=== PATIENT | female | born 1945 | race Caucasian/White ===

== ENCOUNTER 2020-10-08 12:56 | Outpatient (REF) | payer MEDICARE, SELFPAY ==
[2020-10-08 14:43] LABS: C Reactive Protein 0.06 mg/dL (< or = 0.50); Erythrocyte Sedimentation Rate 40 MM/HR (0-20)
== END 2020-10-08 12:57 | disposition home or self-care (01) ==
LOC: HO.LAB 12:56
PROVIDERS: PCP Internal Medicine; Visit Provider Ophthalmology
DX: M31.6 Other giant cell arteritis (principal)
CPT/HCPCS: 36415; 85652; 86140

== ENCOUNTER 2021-01-20 09:41 | Day surgery (SDC) | payer MEDICARE, SELFPAY ==
[2020-12-18 14:27] VITALS: BMI 22.6
[2021-01-20 12:27] VITALS: BP 165/67; PULSE 85; RESP 20; TEMP 37; O2SAT 100
[2021-01-20] MEDS: Tetracaine HCl/PF 0.5% Oph Sol 4 ML DROPS 1 DROP EYE-LEFT (12:35)
[2021-01-20] MEDS: Tropicamide 1 % Ophth Sol 3 ML BTL 1 DROP EYE-LEFT ×3 (12:38→12:46)
[2021-01-20] MEDS: Phenylephrine HCL 2.5% Oph SoL 2 ML BOTTLE 1 DROP EYE-LEFT ×3 (12:41→12:50)
[2021-01-20] MEDS: Lactated Ringers 500 ML 50 ML IVCONT (12:43)
--- NOTE | 2021-01-20 13:00 | HO.ANESPROP2 ---
HPI - Anesthesia Eval Consult details Narrative: Right eye cataract [facility] Past Medical History Medical History Arrhythmia Arthritis COPD (chronic obstructive pulmonary disease) COVID-19 vaccine administered Depression GERD (gastroesophageal reflux disease) HTN (hypertension) Oxygen dependent Family History Family history of problems with anesthesia: No Surgical History Surgical History H/O colonoscopy Hx of appendectomy History of Problems with Anesthesia: No Social History Social History Are you a primary memory care program director to a significant other at home: No Do you presently have visiting nurse or other home services: No Patient Tobacco Use Status: Former Tobacco user Quit Date: 2012 Tobacco use type: Cigarette Use of substances other than those prescribed or required for medical reasons: No Have you been hit, kicked, punched, or otherwise hurt by someone within the past year? If so, by whom?: No Are you DNR?: No Advance Directives Information Provided: No Recently lost weight without trying: Yes How much weight loss: 2-13 pounds Eating poorly because of decreased appetite: No Nutrition screen score: 3 Nutrition Risks: Surgical patient >75years Patient : No : No Poor oral hygiene: No (upper & lower full denture) Meds Allergies Allergy/AdvReac Type Severity Reaction Status Date / Time pantoprazole Allergy Intermediate mouth le Verified 01/20/21 12:42 Penicillins Allergy Intermediate Itching Verified 01/20/21 12:42 Active Medications: Current Medications Generic Name Dose Route Start Last Admin Trade Name Freq PRN Reason Stop Dose Admin Lactated Ringer's 500 mls @ 50 mls/hr 01/20/21 07:45 01/20/21 12:43 Lr IVCONT 50 mls/hr .Q10H [place] Administration Povidone Iodine 1 appl 01/20/21 12:02 Povidone Iodine 5 % Ophth Soln 30 Ml Bottle EYE-LEFT PREOP PRN Pre-Op Surgical Implant Prophy Home Medications Medication Instructions Recorded Confirmed Last Taken Type albuterol sulfate 1 vial INHALATION Q6H PRN 12/18/20 12/18/20 Unknown History atorvastatin 10 mg tablet 1 tab PO DAILY 12/18/20 12/18/20 Unknown History dabigatran etexilate 150 mg 1 cap PO BID 12/18/20 12/18/20 Unknown History capsule (Pradaxa) diltiazem HCl 240 mg 1 cap PO DAILY 12/18/20 12/18/20 Unknown History capsule,extended release 24 hr famotidine 20 mg tablet 2 tab PO BID 12/18/20 12/18/20 Unknown History fluticasone fur. 100 mcg-umeclid 1 puff PO DAILY 12/18/20 12/18/20 Unknown History 62.5 mcg-vilant 25 mcg inhalat.powder (Trelegy Ellipta) ipratropium 20 mcg-albuterol 100 1 puff PO QID 12/18/20 12/18/20 Unknown History mcg/actuation mist for inhalation (Combivent Respimat) lisinopril 30 mg tablet 1 tab PO DAILY 12/18/20 12/18/20 Unknown History metoprolol tartrate 25 mg tablet 1 tab PO BID 12/18/20 12/18/20 Unknown History potassium chloride 20 mEq oral 1 packet PO DAILY 12/18/20 12/18/20 Unknown History packet (Klor-Con) roflumilast 500 mcg tablet 1 tab PO DAILY 12/18/20 12/18/20 Unknown History (Darlene) Exam Exam Date and Time: January 20, 2021 1300 Height,Weight and Vital Signs: Height 5 ft Weight 52.617 kg Last Vital Signs Temp 98.6 F 01/20/21 12:27 Pulse 85 01/20/21 12:27 Resp 20 01/20/21 12:27 BP 165/67 H 01/20/21 12:27 Pulse Ox 100 01/20/21 12:27 Airway Mallampati Class: II TM Dist: >3cm Neck ROM: Full Denture: Upper and Lower Loose/Missing/Broken Teeth: Yes Heart: rrr +s1s2 Lungs: cta b/l Assessment and Plan Assessment Anesthesia Assessment: Anesthesia Plan Discussed and Chart Reviewed Final Anesthetic Review Family History of Problems with Anesthesia: No History of Problems with Anesthesia: No NPO: Yes ASA Class: III Final Preanesthetic Review: No Changes in Pt Med Stat, Meds/Allgs Chart Reviewed, Consent Obtained/Reviewed and Anes Risks/Benef Reviewed Patient Risk: Intermediate Procedure Risk: Low Assessment/Block/Sedation in SS: Assess/Block/Sedation-SS Anesthetic Plan Anesthetic Plan: MAC: and Agree w/ Assess. and Plan Disposition: Standard PACU
--- NOTE | 2021-01-20 13:56 | HO.PNOPHT ---
Ophthalmology Procedure Procedure Date of Service: 01/20/21 Ophthalmology Viscoelastic: Elina Pryort Dual Pack Pro Ophthalmology Lenses: TECMADYSON [id number] (23) Procedure Notes: PREOPERATIVE DIAGNOSIS: Decreased visual acuity right eye secondary to cataract POSTOPERATIVE DIAGNOSIS: Same PROCEDURE: Right cataract extraction with intraocular lens insertion SURGEON: Lasha Gillette M.D. ANESTHESIA: Topical/MAC ESTIMATED BLOOD LOSS: None COMPLICATIONS: None After obtaining informed consent, the patient was brought to the operating room suite and placed in the supine position. After adequate sedation per anesthesia, topical drops of Tetracaine were given to the right eye. The eye was then prepped and draped in the usual sterile fashion. The operating room microscope was then positioned over the operative eye and a lid speculum placed. A paracentesis was created. Viscoelastic was then instilled into the anterior chamber. A three plane incision was then created temporally, utilizing a 2.85 mm keratome. Capsulotomy forceps were then utilized to create a circular tear capsulotomy. Hydrodissection and hydrodelineation were carried out until adequate mobilization of the nucleus occurred. Phacoemulsification was then utilized to remove the dense central nucleus followed by removal of the cortical material utilizing the automated aspiration irrigation unit. Viscoelastic was instilled into the posterior capsular bag followed by placement of a posterior chamber intraocular lens without difficulty. The residual Viscoelastic was then removed utilizing the automated IA machine. The wound was checked and found to be watertight. The patient tolerated the procedure well and the lid speculum was removed. Intracameral injection of Vigamox 0.1 mL followed by a subtenon injection of Kenalog-40 0.2 mL were administered. The patient will be seen in the a.m.
[2021-01-20 14:28] VITALS: BP 129/70; PULSE 89; RESP 16; TEMP 36.3; O2SAT 96
[2021-01-20] MEDS: Acetaminophen 325 MG TABLET 650 MG PO (14:36)
== END 2021-01-20 14:44 | disposition home or self-care (01) ==
PROVIDERS: PCP Internal Medicine; Visit Provider Ophthalmology
PROC: (CPT 66985; principal; 2021-01-20 12:30)
DX: H25.11 Age-related nuclear cataract, right eye (principal); H52.4 Presbyopia; J44.9 Chronic obstructive pulmonary disease, unspecified; I10 Essential (primary) hypertension; I48.0 Paroxysmal atrial fibrillation; Z79.01 Long term (current) use of anticoagulants; Z79.51 Long term (current) use of inhaled steroids; Z87.891 Personal history of nicotine dependence
CPT/HCPCS: 66984; J2250; J3300; V2632

== ENCOUNTER 2022-08-28 09:27 | Outpatient (REF) | payer MEDICARE, SELFPAY ==
[2022-08-28 11:17] LABS: MANUAL DIFF FLAG NO
[2022-08-28 11:29] LABS: Basophils Absolute Auto 0.1 X10*3/uL (0.0-0.2); Basophils Percent Auto 1.1 % (0-2); Eosinophils Absolute Auto 0.5 X10*3/uL (0.0-0.4); Eosinophils Percent Auto 6.5 % (0-4); Hematocrit 30.5 % (37.0-47.0); Hemoglobin 9.2 g/dl (12.0-16.0); Imm Gran Abs Auto 0.02 X10*3/uL (0.00-0.03); Imm Gran Pct Auto 0.3 % (0.0-0.4); Lymphocytes Absolute Auto 1.4 X10*3/uL (1.2-4.9); Lymphocytes Percent Auto 20.1 % (20-40); Mean Corpuscular HGB Conc 30.2 g/dl (31.0-35.0); Mean Platelet Volume 9.2 fL (9.4-12.3); Monocytes Absolute Auto 0.5 X10*3/uL (0.1-1.2); Monocytes Percent Auto 7.6 % (2-11); Neutrophils Absolute Auto 4.6 x10*3/uL (2.0-8.3); Neutrophils Percent Auto 64.4 % (45-73); Platelet Count 385 X10*3/uL (160-400); Red Blood Count 3.28 X10*6/uL (4.20-5.50); Red Cell Distribution Width 14.6 % (11.0-16.0); White Blood Count 7.1 X10*3/uL (4.8-10.8)
[2022-08-28 12:44] LABS: Alanine Aminotransferase 9 U/L (0-31); Albumin Level 3.7 g/dL (3.5-5.0); Alkaline Phosphatase 105 U/L (39-117); Anion Gap 13 (12-20); Aspartate Amino Transferase 15 U/L (5-31); Bilirubin Total 0.3 mg/dL (0.0-1.0); Blood Urea Nitrogen 14 mg/dL (9-16); Calcium 9.6 mg/dL (8.4-10.2); Carbon Dioxide 30 mmol/L (22-29); Chloride 104 mmol/L (96-108); Estimated Glomerular Filt Rate > 60; Glucose Random 97 mg/dL (60-115); Potassium 4.1 mmol/L (3.3-5.1); Sodium 143 mmol/L (135-145); Total Protein 6.2 g/dL (6.5-8.0)
== END 2022-08-28 09:28 | disposition home or self-care (01) ==
LOC: HO.WFDLDS 09:27
PROVIDERS: Visit Provider Family Medicine
DX: Z00.00 Encounter for general adult medical examination without abnormal findings (principal); D64.9 Anemia, unspecified; N17.9 Acute kidney failure, unspecified
CPT/HCPCS: 36415; 80053; 85025

== ENCOUNTER 2022-09-28 10:24 | Outpatient (REF) | payer MEDICARE, SELFPAY ==
[2022-09-28 14:08] LABS: MANUAL DIFF FLAG NO
[2022-09-28 14:30] LABS: Basophils Absolute Auto 0.1 X10*3/uL (0.0-0.2); Basophils Percent Auto 1.4 % (0-2); Eosinophils Absolute Auto 0.5 X10*3/uL (0.0-0.4); Eosinophils Percent Auto 7.5 % (0-4); Hematocrit 32.6 % (37.0-47.0); Hemoglobin 9.7 g/dl (12.0-16.0); Imm Gran Abs Auto 0.02 X10*3/uL (0.00-0.03); Imm Gran Pct Auto 0.3 % (0.0-0.4); Lymphocytes Absolute Auto 1.1 X10*3/uL (1.2-4.9); Lymphocytes Percent Auto 15.4 % (20-40); Mean Corpuscular HGB Conc 29.8 g/dl (31.0-35.0); Mean Corpuscular Hemoglobin 27.7 pg (27.0-33.0); Mean Corpuscular Volume 93.1 fL (80.0-98.0); Mean Platelet Volume 9.7 fL (9.4-12.3); Monocytes Absolute Auto 0.5 X10*3/uL (0.1-1.2); Monocytes Percent Auto 6.7 % (2-11); Neutrophils Absolute Auto 4.9 x10*3/uL (2.0-8.3); Neutrophils Percent Auto 68.7 % (45-73); Platelet Count 350 X10*3/uL (160-400); Red Cell Distribution Width 14.5 % (11.0-16.0); White Blood Count 7.2 X10*3/uL (4.8-10.8)
[2022-09-28 14:33] LABS: Iron 25 mcg/dL (30-160); Percent Iron Saturation 6 % (15-50); Total Iron Binding Capacity 400 mcg/dL (228-428); Unsaturated Iron Binding 375 ug/dL
== END 2022-09-28 10:25 | disposition home or self-care (01) ==
LOC: HO.WFDLDS 10:24
PROVIDERS: Visit Provider Family Medicine
DX: Z00.00 Encounter for general adult medical examination without abnormal findings (principal); D64.9 Anemia, unspecified
CPT/HCPCS: 36415; 83540; 85025

== ENCOUNTER 2022-11-23 10:06 | Outpatient (REF) | payer MEDICARE, SELFPAY ==
[2022-11-23 11:08] LABS: MANUAL DIFF FLAG NO
[2022-11-23 11:18] LABS: Basophils Absolute Auto 0.1 X10*3/uL (0.0-0.2); Basophils Percent Auto 1.2 % (0-2); Eosinophils Absolute Auto 0.3 X10*3/uL (0.0-0.4); Eosinophils Percent Auto 4.3 % (0-4); Hematocrit 35.9 % (37.0-47.0); Hemoglobin 10.7 g/dl (12.0-16.0); Imm Gran Abs Auto 0.01 X10*3/uL (0.00-0.03); Imm Gran Pct Auto 0.2 % (0.0-0.4); Lymphocytes Absolute Auto 1.2 X10*3/uL (1.2-4.9); Lymphocytes Percent Auto 20.6 % (20-40); Mean Corpuscular HGB Conc 29.8 g/dl (31.0-35.0); Mean Corpuscular Hemoglobin 28.4 pg (27.0-33.0); Mean Corpuscular Volume 95.2 fL (80.0-98.0); Mean Platelet Volume 9.6 fL (9.4-12.3); Monocytes Absolute Auto 0.3 X10*3/uL (0.1-1.2); Monocytes Percent Auto 5.7 % (2-11); Neutrophils Absolute Auto 4.1 x10*3/uL (2.0-8.3); Platelet Count 219 X10*3/uL (160-400); Red Blood Count 3.77 X10*6/uL (4.20-5.50); Red Cell Distribution Width 16.5 % (11.0-16.0)
[2022-11-23 11:50] LABS: Alanine Aminotransferase 13 U/L (0-31); Albumin Level 4.1 g/dL (3.5-5.0); Alkaline Phosphatase 102 U/L (39-117); Anion Gap 13 (12-20); Aspartate Amino Transferase 18 U/L (5-31); Bilirubin Total 0.3 mg/dL (0.0-1.0); Blood Urea Nitrogen 21 mg/dL (9-16); Calcium 10.1 mg/dL (8.4-10.2); Carbon Dioxide 33 mmol/L (22-29); Chloride 101 mmol/L (96-108); Cholesterol 160 mg/dL; Estimated Glomerular Filt Rate > 60; Glucose Fasting 95 mg/dL (60-99); HDL Cholesterol 53 mg/dL; LDL Cholesterol Calculated 84 mg/dl; Sodium 143 mmol/L (135-145); Total Protein 6.9 g/dL (6.5-8.0); Triglycerides 119 mg/dL
== END 2022-11-23 10:07 | disposition home or self-care (01) ==
LOC: HO.WFDLDS 10:06
PROVIDERS: Visit Provider Family Medicine
DX: Z00.00 Encounter for general adult medical examination without abnormal findings (principal)
CPT/HCPCS: 36415; 80053; 80061; 84443; 85025

== ENCOUNTER 2022-12-21 13:29 | Outpatient (AMB) | payer MEDICARE, SELFPAY ==
[2022-12-21 13:36] VITALS: BP 112/70; PULSE 65; O2SAT 96; BMI 18.0
--- NOTE | 2022-12-21 13:36 | A.OFFPC_ITS ---
Vital Signs 12/21/22 13:36 Height 5 ft Weight 92 lb BMI 18.0 BP 112/70 Blood Pressure Location Lt brachial Position Sitting Pulse 65 Pulse Source Pulse Oximeter Pulse Oximetry (%) 96 Oxygen Delivery Method Room Air Intake Visit Reasons: f/u iron deficiency anemia S/P GI bleeding, mood Intake Note: Patient is here to follow up on iron deficiency, and GI bleeding, and mood. Allergies pantoprazole Allergy (Intermediate, Verified 12/21/22 13:41) mouth le Penicillins Allergy (Intermediate, Verified 12/21/22 13:41) Itching Medication List - Last Reconciled 12/21/22 by Elpidio Alba MD albuterol sulfate 1 vial inhalation Q6H PRN atorvastatin 1 tab PO DAILY citalopram 10 mg PO DAILY 30 days dabigatran etexilate (Pradaxa) 1 cap PO BID diltiazem HCl 1 cap PO DAILY ferrous gluconate 256 mg PO DAILY 30 days ogywcmdavrx-mvupzbffu-eomitezn 100-62.5-25 mcg (Trelegy Ellipta) 1 puff PO DAILY food supplemt, lactose-reduced (Ensure oral liquid) 1 ea PO DAILY 30 days ipratropium-albuterol 20-100 mcg/actuation (Combivent Respimat) 1 puff PO QID lansoprazole 30 mg PO DAILY 90 days loratadine (Allergy Relief (loratadine)) 10 mg PO DAILY metoprolol tartrate 1 tab PO BID potassium chloride (Klor-Con) 1 packet PO DAILY potassium chloride ER 20 mEq PO DAILY 90 days prednisone 40 mg PO DAILY roflumilast (Daliresp) 1 tab PO DAILY Tobacco use date assessed: 12/21/22 Fall risk assessment: 1 Fall in past year Last assessed Fall Risk: 12/21/22 Dental Screening Dental Screen Date: 12/21/22 Did you have a dental visit in the last 12 months?: No Did you have a dental problem in the last 6 months where you did not have access to dental care?: No Was dental information given to patient?: No HPI f/u iron deficiency anemia S/P GI bleeding, mood HPI Details 77 y/o female presents to f/u iron deficiency anemia s/p GI bleeding and mood. Pt is underweight - she had gained a few lbs. Insurance did not want to pay for her ensure. Labs were drawn 11/23/22. Reviewed labs with pt. Ongoing anemia. She reports constipation has improved. She reports mood has improved with medications - she is on citalopram 10mg. Pt has complaints of a cough. FOR[facility]LY [facility], [facility] Medical History Arrhythmia Arthritis COPD (chronic obstructive pulmonary disease) COVID-19 vaccine administered Depression GERD (gastroesophageal reflux disease) HTN (hypertension) Oxygen dependent Surgical History H/O colonoscopy Hx of appendectomy Social History Housing: House Are you a primary healthcare customer service to a significant other at home: No Do you presently have visiting nurse or other home services: No Patient Tobacco Use Status: Former Tobacco user Quit Date: 2012 Tobacco use type: Cigarette e-Cigarette/Vaping Use: Never Used Second Hand Smoke Exposure: No Current occupational status: retired Current occupational exposures/hazards: No Hearing needs: No Questionnaire PHQ-9 Over the last 2 weeks, how often have you been bothered by any of the following problems? 1. Little interest or pleasure in doing things: nearly every day 2. Feeling down, depressed, or hopeless: several days 3. Trouble falling or staying asleep, or sleeping too much: not at all 4. Feeling tired or having little energy: nearly every day 5. Poor appetite or overeating: not at all 6. Feeling bad about yourself - or that you are a failure or have let yourself or your family down: nearly every day 7. Trouble concentrating on things, such as reading the newspaper or watching television: not at all 8. Moving or speaking so slowly that other people could have noticed. Or the opposite - being so fidgety or restless that you have been moving around a lot more than usual: not at all 9. Thoughts that you would be better off or of hurting yourself in some way: not at all Total score: 10 Source: Developed by Drs. Kyle Urena, Holli Avalos, Jules Monteiro and colleagues, with an educational bernadette from [employer]. Thrive Questionnaire Date Thrive assessed: 05/21/22 SASHA-7 AMB Questionnaire SASHA-7 Date SASHA - 7 assessed: 05/21/22 Feeling nervous, anxious, or on edge: 1 = Several days Not being able to stop or control worryin = Nearly every day Worrying too much about different things: 3 = Nearly every day Trouble relaxin = Several days Being so restless that it is hard to sit still: 0 = Not at all Becoming easily annoyed or irritable: 1 = Several days Feeling afraid as if something awful might happen: 3 = Nearly every day Total SASHA-7 score (0-4 normal; 5-9 mild; 10-14 moderate; 15-21 severe): 12 Source: Developed by Drs. Kyle Urena, Holli Avalos, Jules Monteiro and colleagues, with an educational bernadette from [employer]. Review of Systems Const Denies chills, Denies fatigue, Denies fever(s), Denies headache(s) and Denies weakness ENT Denies dizziness and Denies headache(s) Card Denies dyspnea Resp Reports cough, Denies dyspnea, Denies wheezing and Denies other (shortness of breath) Musc Denies numbness and Denies tingling Neuro Denies dizziness, Denies headache(s), Denies numbness, Denies tingling and Denies weakness Psych Denies anxiety and Denies depression Endo Denies fatigue Aller/Immun Denies wheezing Physical exam (Primary Care) Vital Signs: Last Vital Signs Pulse 65 12/21/22 13:36 BP 112/70 12/21/22 13:36 Pulse Ox 96 12/21/22 13:36 Oxygen Delivery Method Room Air 12/21/22 13:36 BMI result Body Mass Index 18.0 Tobacco/Smoking Status: Tobacco use Status Tobacco use date assessed 12/21/22 12/21/22 13:49 Patient Tobacco Use Status Former Tobacco user 12/21/22 13:49 Tobacco use type Cigarette 12/21/22 13:49 e-Cigarette/Vaping Use Never Used 12/21/22 13:49 PHQ-9: PHQ-9 Score PHQ-9: Total score 10 12/21/22 13:58 Thrive Assessment: Date of Thrive Assessment Date Thrive assessed 05/21/22 12/21/22 13:49 Const General: well developed; No acute distress Nutritional Appearance: underweight Orientation/consciousness: patient oriented x3 [facility] Head: Yes normocephalic and Yes atraumatic Eyes General: appearance normal, both eyes and all related structures Pupils: Equal, round and reactive pupils present EOM: EOMs intact bilaterally Resp Effort & Inspection: normal respiratory effort Auscultation: clear to auscultation bilaterally Cardio Rate: regular rate Rhythm: regular rhythm Heart sounds: S1 normal heart sound present, S2 normal heart sound present, no gallops, no murmurs and no rubs Neuro General: patient oriented x3 and gait normal Cranial nerves: Yes Equal, round and reactive pupils present Psych Affect: normal affect Assessment and Plan Assessment & Plan (1) Underweight: Code(s): R63.6 - Underweight Plan: Underweight and failure to thrive. Patient has had difficulty gaining any weight and this is multifactorial and cause. However, with addition of insure she was able to gain about 3 lb. She was told by insurance that they will not cover ensure. Will try resubmiting this. May need prior authorization or peer to peer (2) Anemia: Code(s): D64.9 - Anemia, unspecified Plan: Taking iron daily now and tolerating this Continue iron Will follow-up on her CBC at her next lab draw (3) Anxiety with depression: Code(s): F41.8 - Other specified anxiety disorders Plan: Stable Continue citalopram 10 mg daily (4) Constipation: Code(s): K59.00 - Constipation, unspecified Plan: Currently doing well. Hydrate well (5) COPD exacerbation: Code(s): J44.1 - Chronic obstructive pulmonary disease with (acute) exacerbation Plan: Current cough and chest congestion No consolidations heard on auscultation Likely COPD exacerbation. However, she does note some chills. Will give her a Z-Kam and prednisone taper Continue inhaled medications Follow-up with Dr. Ayon as recommended (6) History of GI bleed: Code(s): Z87.19 - Personal history of other diseases of the digestive system Orders: Orders Comprehensive [place]. Panel Fast Today Z00.00 - Encounter for general adult medical examination without abnormal findings Complete Blood Count Auto Diff Today Z00.00 - Encounter for general adult medical examination without abnormal findings Lipid Panel Today Z00.00 - Encounter for general adult medical examination without abnormal findings UA and rflx microscopic Today Z00.00 - Encounter for general adult medical examination without abnormal findings TSH reflex Free T4 Today Z00.00 - Encounter for general adult medical examination without abnormal findings Referrals Gastroenterology Referral K92.2 - Gastrointestinal hemorrhage, unspecified, R62.7 - Adult failure to thrive, R63.6 - Underweight Medications: New azithromycin (Zithromax Z-Kam) take 500 mg today (day 1), then 250 mg for 4 days (days 2-5) PO 5 days 6 tabs 0RF prednisone 4 tabs daily for 4 days, 3 tabs daily for 2 days, 2 tabs daily for 2 days, 1 tab daily for 2 days PO daily; 10 days 28 tabs 0RF Refilled food supplemt, lactose-reduced (Ensure oral liquid) 1 ea PO DAILY 30 days 7,110 mL 3RF R62.7 - Adult failure to thrive, R63.6 - Underweight Coding Level of Care Code Est Pt Level 4 (79434) Diagnoses Underweight R63.6 Anemia D64.9 Anxiety with depression F41.8 Constipation K59.00 COPD exacerbation J44.1 History of GI bleed Z87.19
== END 2022-12-21 14:25 | disposition home or self-care (01) ==
PROVIDERS: PCP Family Medicine; Visit Provider Family Medicine
DX: R63.6 Underweight (principal); F41.8 Other specified anxiety disorders; J44.1 Chronic obstructive pulmonary disease with (acute) exacerbation; Z87.19 Personal history of other diseases of the digestive system; D64.9 Anemia, unspecified; K59.00 Constipation, unspecified
CPT/HCPCS: 99214

== ENCOUNTER 2023-02-26 11:10 | Outpatient (REF) | payer MEDICARE, SELFPAY ==
[2023-02-26 14:27] LABS: MANUAL DIFF FLAG NO
[2023-02-26 14:39] LABS: Basophils Absolute Auto 0.1 X10*3/uL (0.0-0.2); Eosinophils Absolute Auto 0.2 X10*3/uL (0.0-0.4); Eosinophils Percent Auto 3.4 % (0-4); Hematocrit 37.3 % (37.0-47.0); Hemoglobin 11.9 g/dl (12.0-16.0); Imm Gran Abs Auto 0.02 X10*3/uL (0.00-0.03); Imm Gran Pct Auto 0.3 % (0.0-0.4); Lymphocytes Absolute Auto 0.9 X10*3/uL (1.2-4.9); Lymphocytes Percent Auto 12.5 % (20-40); Mean Corpuscular HGB Conc 31.9 g/dl (31.0-35.0); Mean Corpuscular Hemoglobin 31.7 pg (27.0-33.0); Mean Corpuscular Volume 99.5 fL (80.0-98.0); Mean Platelet Volume 10.4 fL (9.4-12.3); Monocytes Absolute Auto 0.4 X10*3/uL (0.1-1.2); Neutrophils Absolute Auto 5.4 x10*3/uL (2.0-8.3); Neutrophils Percent Auto 76.8 % (45-73); Platelet Count 213 X10*3/uL (160-400); Red Blood Count 3.75 X10*6/uL (4.20-5.50); Red Cell Distribution Width 12.1 % (11.0-16.0)
[2023-02-26 14:51] LABS: Appearance Urine Clear; Color Urine Yellow; Glucose Urine UA Negative (Negative); Leukocyte Esterase Urine Trace (Negative); Nitrite Urine Negative (Negative); UMIC TRIGGER UA YES; Urine Blood Trace (Negative); Urine Ketones Negative (Negative); Urine Protein 30 (1+) mg/dL (Neg-Trace)
[2023-02-26 15:15] LABS: TSH reflex Free T4 2.67 uIU/mL (0.32-4.0)
[2023-02-26 15:22] LABS: Alanine Aminotransferase 16 U/L (0-31); Albumin Level 4.1 g/dL (3.5-5.0); Alkaline Phosphatase 92 U/L (39-117); Anion Gap 16 (12-20); Aspartate Amino Transferase 29 U/L (5-31); Bilirubin Total 0.3 mg/dL (0.0-1.0); Blood Urea Nitrogen 12 mg/dL (9-16); Calcium 10.2 mg/dL (8.4-10.2); Carbon Dioxide 28 mmol/L (22-29); Chloride 102 mmol/L (96-108); Cholesterol 158 mg/dL (<200); Estimated Glomerular Filt Rate > 60; Glucose Fasting 92 mg/dL (60-99); HDL Cholesterol 57 mg/dL (>40); LDL Cholesterol Calculated 78 mg/dL (<100); Potassium 4.6 mmol/L (3.3-5.1); Sodium 141 mmol/L (135-145); Total Protein 7.5 g/dL (6.5-8.0); Triglycerides 115 mg/dL (<150)
[2023-02-26 15:22] LABS: Bacteria Urine None Seen (None Seen); Calcium Oxalate Crystals Urine Present; Hyaline Casts Urine 0-2 /LPF (0-2); Squamous Epithelial Cell Urine 0-2 /HPF (0-2)
[2023-02-26 15:33] LABS: Creatinine Urine 134.74 mg/dL; Microalbum/Creatinine Ratio Ur 35.6 ug/mg cr (<30)
== END 2023-02-26 11:11 | disposition home or self-care (01) ==
LOC: HO.WFDLDS 11:10
PROVIDERS: Visit Provider Family Medicine
DX: Z00.00 Encounter for general adult medical examination without abnormal findings (principal); I10 Essential (primary) hypertension
CPT/HCPCS: 36415; 80053; 80061; 81001; 82043; 82570; 84443; 85025

== ENCOUNTER 2023-03-03 10:58 | Outpatient (AMB) | payer MEDICARE, SELFPAY ==
--- NOTE | 2023-03-03 11:04 | A.OFFPC_ITS ---
Vital Signs 03/03/23 11:08 Height 5 ft Weight 91 lb 8 oz BMI 17.9 BP 132/60 Blood Pressure Location Lt brachial Position Sitting Respiration 14 Pulse 73 Pulse Source Pulse Oximeter Temp 97.7 F Temp Source Skin Pulse Oximetry (%) 94 Oxygen Delivery Method Nasal Cannula Intake Visit Reasons: CPE with f/u labs and health maintenance Intake Note: Patient is here to follow up on her labs. Patient received a letter in the mail and was informed that [facility] and associated specialists will no longer be accepting her insurance plan. Patient will need a referral for a new Gastroenterology provider. Pulp Piler Required: No Accompanied by: Self / Same As Patient Allergies pantoprazole Allergy (Intermediate, Verified 03/03/23 11:16) mouth le Penicillins Allergy (Intermediate, Verified 03/03/23 11:16) Itching Tobacco use date assessed: 12/21/22 HPI CPE with f/u labs and health maintenance HPI Details 78 y/o female presents for a CPE with f/ u labs and health maintenance. Labs were drawn 02/26/23. Reviewed labs with pt. Ongoing anemia. Triglycerides 115. TC 158. LDL 78. HDL 57. She reports she has stopped getting mammograms a long time ago. Pt reports bone density test was more than 2 years ago. FORMERLY [facility] Medical History Arrhythmia Arthritis COPD (chronic obstructive pulmonary disease) COVID-19 vaccine administered Depression GERD (gastroesophageal reflux disease) HTN (hypertension) Oxygen dependent Surgical History H/O colonoscopy Hx of appendectomy Social History Housing: House Are you a primary director long term care to a significant other at home: No Do you presently have visiting nurse or other home services: No Patient Tobacco Use Status: Former Tobacco user Quit Date: 2012 Tobacco use type: Cigarette e-Cigarette/Vaping Use: Never Used Second Hand Smoke Exposure: No Current occupational status: retired Current occupational exposures/hazards: No Hearing needs: No Questionnaire Thrive Questionnaire Date Thrive assessed: 05/21/22 SASHA-7 AMB Questionnaire SASHA-7 Date SASHA - 7 assessed: 05/21/22 Source: Developed by Holli HoffW. Robbie, Jules Monteiro and colleagues, with an educational bernadette from [employer]. Review of Systems Const Denies chills, Denies fatigue, Denies fever(s), Denies headache(s) and Denies weakness Eyes Denies change in vision ENT Denies dizziness, Denies headache(s), Denies hearing loss, Denies nasal congestion, Denies sinus pain, Denies sinus pressure and Denies sore throat Card Denies chest pain, Denies lightheadedness, Denies dyspnea and Denies other (palpitations) Resp Denies cough, Denies dyspnea and Denies wheezing GI Denies abdominal pain, Denies melena, Denies hematochezia, Denies change in bowel habits, Denies dyspepsia and Denies nausea Denies hematuria and Denies dysuria Musc Denies abnormal gait, Denies myalgias, Denies arthralgias, Denies numbness and Denies tingling Skin/Breast Denies rash, Denies unusual bruising and Denies wounds Neuro Denies abnormal gait, Denies dizziness, Denies headache(s), Denies memory loss, Denies numbness, Denies Sensory deficit (Neuro), Denies tingling and Denies weakness Psych Reports anxiety, Denies depression and Denies memory loss Endo Denies cold intolerance, Denies fatigue, Denies heat intolerance, Denies polydipsia and Denies polyuria Devonte/Lymph Denies easy bleeding and Denies easy bruising Aller/Immun Denies wheezing Physical exam (Primary Care) Vital Signs: Last Vital Signs Temp 97.7 F 03/03/23 11:08 Pulse 73 03/03/23 11:08 Resp 14 03/03/23 11:08 BP 132/60 03/03/23 11:08 Pulse Ox 94 03/03/23 11:08 Oxygen Delivery Method Nasal Cannula 03/03/23 11:08 BMI result Body Mass Index 17.9 Tobacco/Smoking Status: Tobacco use Status Tobacco use date assessed 12/21/22 03/03/23 11:06 Patient Tobacco Use Status Former Tobacco user 03/03/23 11:06 Tobacco use type Cigarette 03/03/23 11:06 e-Cigarette/Vaping Use Never Used 03/03/23 11:06 Thrive Assessment: Date of Thrive Assessment Date Thrive assessed 05/21/22 03/03/23 11:06 Const General: no acute distress, well developed, alert and awake Nutritional Appearance: well nourished and underweight Orientation/consciousness: patient oriented x3 [facility] Head: Yes normocephalic and Yes atraumatic Ears: hearing grossly normal bilaterally and TM's normal bilaterally General nose exam: Normal external nose present and Normal nares present Mouth: Normal oral and palatal mucosa present and moist mucous membranes Teeth and gingiva: dentition normal Throat: Yes posterior oropharynx normal Eyes General: appearance normal, both eyes and all related structures Pupils: Equal, round and reactive pupils present and Pupil accommodation reflex normal EOM: EOMs intact bilaterally Neck Neck: Yes normal visual inspection, Yes no lymphadenopathy and Yes trachea midline Thyroid: Thyroid normal Carotids: no bruits Lymphatic: no lymphadenopathy noted Chest Chest palpation & inspection: normal inspection of the chest Resp Effort & Inspection: normal respiratory effort Auscultation: clear to auscultation bilaterally Cardio Rate: regular rate Rhythm: regular rhythm Heart sounds: S1 normal heart sound present, S2 normal heart sound present, no gallops, no murmurs and no rubs Bruits: no abdominal aortic bruits and no carotid bruits GI Palpation (GI): No Abdominal aortic bruit present, Soft to palpation, nontender, No hepatosplenomegaly present and No Rebound tenderness present Auscultation: normal bowel sounds General: Yes no CVA tenderness Back/Spine/Pelvis Back: no CVA tenderness Cervical Spine: cervical ROM normal and No Cervical spine tenderness Thoracic/Lumbar Spine: thoraco-lumbar ROM normal, No pain with thoraco-lumbar ROM, No thoracic spinal tenderness and No lumbar spinal tenderness Skin Lesions: no lesions Rashes: no rashes Trauma: no lacerations or abrasions Wounds: no wounds Nails: normal Neuro General: patient oriented x3 Cranial nerves: Yes Equal, round and reactive pupils present Cognition (Neuro): normal cognition Gait exam (Neuro): Normal gait present Motor exam (neuro): 5/5 motor strength present throughout Sensory Exam: No Sensory deficit (Neuro) Deep tendon reflexes (DTR's): Right patellar reflex intensity grade: 2+ and Left patellar reflex intensity grade: 2+ Extrem General: Yes normal to inspection and No edema Psych Appearance: grossly normal Affect: normal affect Attitude: cooperative Thought process: Normal thought process present Assessment and Plan Assessment & Plan (1) Adult general medical exam: Code(s): Z00.00 - Encounter for general adult medical examination without abnormal findings Plan: 78-year-old female presents for complete physical exam (2) HTN (hypertension): Code(s): I10 - Essential (primary) hypertension Plan: Blood pressure is controlled Continue current medications (3) Anemia: Code(s): D64.9 - Anemia, unspecified Plan: Almost completely resolved. We can continue to follow (4) Underweight: Code(s): R63.6 - Underweight Plan: We is fairly steady but significantly underweight still. Had prescribed an ensure dietary supplement and patient is having difficulty affording this Will send again. Can get prior authorization or a peer to peer discussion. (5) Microalbuminuria: Code(s): R80.9 - Proteinuria, unspecified Plan: Hydrate well Continue to manage blood pressure Will follow-up (6) Anxiety with depression: Code(s): F41.8 - Other specified anxiety disorders Plan: Significant anxiety she is on citalopram 10 mg daily and should continue this She can try hydroxyzine and will give her a small amount of lorazepam for severe symptoms p.r.n. Strongly advised she use sparingly and minimize fall risk (7) Screening for colon cancer: Code(s): Z12.11 - Encounter for screening for malignant neoplasm of colon Plan: Patient had a colonoscopy done last year with her GI bleed and was told she does not need any further colonoscopies. (8) Breast cancer screening by mammogram: Code(s): Z12.31 - Encounter for screening mammogram for malignant neoplasm of breast Plan: Declines mammogram (9) Osteoporosis: Code(s): M81.0 - Age-related osteoporosis without current pathological fracture Plan: Patient reports she has had prior abnormal testing in the past Overdue to recheck bone density. Patient is apprehensive about this. She will think about this further. I have ordered the test. Orders: Orders XR DEXA axial skeleton Today M81.0 - Age-related osteoporosis without current pathological fracture Medications: Refilled food supplemt, lactose-reduced (Ensure oral liquid) 1 ea PO DAILY 30 days 7,110 mL 3RF R62.7 - Adult failure to thrive, R63.6 - Underweight Coding Level of Care Code Est Pt Level 4 (84174) Est Pt Prev Care >65y(42005) Diagnoses Adult general medical exam Z00.00 HTN (hypertension) I10 Anemia D64.9 Underweight R63.6 Microalbuminuria R80.9 Anxiety with depression F41.8 Screening for colon cancer Z12.11 Breast cancer screening by mammogram Z12.31 Osteoporosis M81.0
[2023-03-03 11:08] VITALS: BP 132/60; PULSE 73; RESP 14; TEMP 36.5; O2SAT 94; BMI 17.9
== END 2023-03-03 12:32 | disposition home or self-care (01) ==
PROVIDERS: PCP Family Medicine; Visit Provider Family Medicine
DX: Z00.00 Encounter for general adult medical examination without abnormal findings (principal); I10 Essential (primary) hypertension; D64.9 Anemia, unspecified; R63.6 Underweight; R80.9 Proteinuria, unspecified; F41.8 Other specified anxiety disorders; M81.0 Age-related osteoporosis without current pathological fracture
CPT/HCPCS: 99397

== ENCOUNTER 2023-06-09 14:29 | Outpatient (AMB) | payer MEDICARE, SELFPAY ==
[2023-06-09 14:35] VITALS: BP 100/66; PULSE 66; O2SAT 95; BMI 17.0
--- NOTE | 2023-06-09 14:35 | MHC.PC.OV ---
Vital Signs 06/09/23 14:35 Height 5 ft Weight 87 lb 4 oz BMI 17.0 BP 100/66 Blood Pressure Location Lt brachial Pulse 66 Pulse Source Pulse Oximeter Pulse Oximetry (%) 95 Oxygen Delivery Method Nasal Cannula Oxygen Flow Rate 3 Intake Visit Reasons: CPE with f/u labs and health maintenance Intake Note: Patient is here today for her medication, and follow up with health maintenance. Allergies pantoprazole Allergy (Intermediate, Verified 06/09/23 14:42) mouth le Penicillins Allergy (Intermediate, Verified 06/09/23 14:42) Itching Tobacco use date assessed: 12/21/22 Fall risk assessment: No Falls in past year Last assessed Fall Risk: 06/09/23 HPI CPE with f/u labs and health maintenance HPI Details 78 y/o female presents to f/u chronic conditions. She had lost some weight - 91 lbs in February down to 87 lbs. Had seen pulmonology recently and had changed her back to Daliresp which she is tolerating well. Pt reports worsened anxiety. Pt reports a large, raised lesion on her back. Pt reports anxiety/depression. She does not have a therapist. HPI Comments History of Present Illness Details Documentation assistance for Elpidio Alba MD, was provided by Bebeto Starr,? Milling Operator on 06/09/2023 3:33 PM EST. I, Dr. Alba, have read, observed, and verified documentation.? [facility] Medical History COVID-19 vaccine administered Arthritis GERD (gastroesophageal reflux disease) Depression Oxygen dependent COPD (chronic obstructive pulmonary disease) Arrhythmia HTN (hypertension) Surgical History Hx of appendectomy H/O colonoscopy Social History Housing: House Are you a primary wound care coordinator to a significant other at home: No Do you presently have visiting nurse or other home services: No Patient Tobacco Use Status: Former Tobacco user Quit Date: 2012 Tobacco use type: Cigarette e-Cigarette/Vaping Use: Never Used Second Hand Smoke Exposure: No Current occupational status: retired Current occupational exposures/hazards: No Hearing needs: No Questionnaire PHQ-9 Over the last 2 weeks, how often have you been bothered by any of the following problems? 1. Little interest or pleasure in doing things: more than half the days 2. Feeling down, depressed, or hopeless: nearly every day 3. Trouble falling or staying asleep, or sleeping too much: several days 4. Feeling tired or having little energy: not at all 5. Poor appetite or overeating: several days 6. Feeling bad about yourself - or that you are a failure or have let yourself or your family down: not at all 7. Trouble concentrating on things, such as reading the newspaper or watching television: not at all 8. Moving or speaking so slowly that other people could have noticed. Or the opposite - being so fidgety or restless that you have been moving around a lot more than usual: not at all 9. Thoughts that you would be better off or of hurting yourself in some way: not at all Total score: 7 Depression Screening Interpretation: Positive Depression Screening Done: Yes Source: Developed by Drs. Kyle Urena, Holli Avalos, Jules Monteiro and colleagues, with an educational bernadette from [employer]. Thrive Questionnaire Date Thrive assessed: 05/21/22 SASHA-7 AMB Questionnaire SASHA-7 Date SASHA - 7 assessed: 06/09/23 Feeling nervous, anxious, or on edge: 3 = Nearly every day Not being able to stop or control worryin = Nearly every day Worrying too much about different things: 3 = Nearly every day Trouble relaxin = Nearly every day Being so restless that it is hard to sit still: 0 = Not at all Becoming easily annoyed or irritable: 0 = Not at all Feeling afraid as if something awful might happen: 3 = Nearly every day Total SASHA-7 score (0-4 normal; 5-9 mild; 10-14 moderate; 15-21 severe): 15 Source: Developed by Drs. Kyle Urena, Holli Avalos, Jules Monteiro and colleagues, with an educational bernadette from [employer]. Review of Systems Psych Reports anxiety and Reports depression Physical exam (Primary Care) Vital Signs: Last Vital Signs Pulse 66 06/09/23 14:35 BP 100/66 06/09/23 14:35 Pulse Ox 95 06/09/23 14:35 Oxygen Delivery Method Nasal Cannula 06/09/23 14:35 Oxygen Flow Rate 3 06/09/23 14:35 BMI result Body Mass Index 17.0 Tobacco/Smoking Status: Tobacco use Status Tobacco use date assessed 12/21/22 06/09/23 14:39 Patient Tobacco Use Status Former Tobacco user 06/09/23 14:39 Tobacco use type Cigarette 06/09/23 14:39 e-Cigarette/Vaping Use Never Used 06/09/23 14:39 PHQ-9: PHQ-9 Score PHQ-9: Total score 7 06/09/23 14:54 Depression Screening Interpretation: Positive Thrive Assessment: Date of Thrive Assessment Date Thrive assessed 05/21/22 06/09/23 14:39 Const Nutritional Appearance: underweight Skin Other: 2cm raised melanotic lesion with excoriations Assessment and Plan Assessment & Plan (1) Underweight: Code(s): R63.6 - Underweight Plan: Ongoing?failure?to?thrive?and?underweight.??Patient?has?lost?a?few?more?lb?again. She?says?she?has?not?been?able?to?afford?ensure Send?script?again?hoping?insurance?will?pay?and?I?have?given?her?numerous?samples. Referred?to?Gastroenterology (2) Failure to thrive in adult: Code(s): R62.7 - Adult failure to thrive Plan: As?above (3) COPD (chronic obstructive pulmonary disease): Code(s): J44.9 - Chronic obstructive pulmonary disease, unspecified Plan: Stable [facility]-up?with[facility] (4) Oxygen dependent: Comment: 2L Code(s): Z99.81 - Dependence on supplemental oxygen Plan: Stable (5) Abdominal pain: Code(s): R10.9 - Unspecified abdominal pain Plan: Mild?abdominal?discomfort As?above,?referred?to?GI (6) Neoplasm of uncertain behavior of skin: Code(s): D48.5 - Neoplasm of uncertain behavior of skin Plan: 2?cm raised/nodular?melanotic?lesion?with?excoriations Can?use?bacitracin?and?a?bandage?to?prevent?irritation/excoriation?and?infection. Referred?to?dermatology?for?removal (7) Anxiety with depression: Code(s): F41.8 - Other specified anxiety disorders Plan: Worsened?anxiety?and?depression.??Increasing?citalopram?from?10?mg?daily?to?20?mg?daily Referred?to?the?nurse?navigator?to?connect?her?with?a?therapist?and?also?to?evaluate?for?services Orders: Referrals Dermatology Referral D48.5 - Neoplasm of uncertain behavior of skin Nurse Navigator Referral F41.8 - Other specified anxiety disorders Medications: New chlorhexidine gluconate 4% (Hibiclens) 1 appl topical DAILY 118 mL 1RF 14 days Changed From citalopram 10 mg PO DAILY 30 days 30 tabs 2RF To citalopram 20 mg PO DAILY 30 days 30 tabs 2RF Refilled food supplemt, lactose-reduced (Ensure oral liquid) 1 ea PO DAILY 30 days 7,110 mL 3RF R62.7 - Adult failure to thrive, R63.6 - Underweight Coding Level of Care Code Est Pt Level 4 (69989) Diagnoses Underweight R63.6 Failure to thrive in adult R62.7 COPD (chronic obstructive pulmonary disease) J44.9 Oxygen dependent Z99.81 Abdominal pain R10.9 Neoplasm of uncertain behavior of skin D48.5 Anxiety with depression F41.8
== END 2023-06-09 15:32 | disposition home or self-care (01) ==
PROVIDERS: PCP Family Medicine; Visit Provider Family Medicine
DX: R63.6 Underweight (principal); R62.7 Adult failure to thrive; J44.9 Chronic obstructive pulmonary disease, unspecified; Z99.81 Dependence on supplemental oxygen; R10.9 Unspecified abdominal pain; D48.5 Neoplasm of uncertain behavior of skin; F41.8 Other specified anxiety disorders
CPT/HCPCS: 99214

== ENCOUNTER 2023-07-20 14:27 | Outpatient (AMB) | payer MEDICARE, SELFPAY ==
[2023-07-20 14:31] VITALS: BP 118/68; PULSE 65; O2SAT 92; BMI 16.9
--- NOTE | 2023-07-20 14:31 | MHC.PC.OV ---
Vital Signs 07/20/23 14:31 Height 5 ft Weight 86 lb 6 oz BMI 16.9 BP 118/68 Blood Pressure Location Lt brachial Position Sitting Pulse 65 Pulse Source Pulse Oximeter Pulse Oximetry (%) 92 Oxygen Delivery Method Room Air Oxygen Flow Rate 3 Intake Visit Reasons: f/u underweight, anxiety/depression Intake Note: Patient is here for follow up on being underweight and anxiety and depression. Allergies pantoprazole Allergy (Intermediate, Verified 07/20/23 14:32) mouth le Penicillins Allergy (Intermediate, Verified 07/20/23 14:32) Itching Medication List - Last Reconciled 07/20/23 by Elpidio Alba MD albuterol sulfate 1 vial inhalation Q6H PRN atorvastatin 1 tab PO DAILY chlorhexidine gluconate 4% (Hibiclens) 1 appl topical DAILY 14 days citalopram 20 mg PO DAILY 30 days dabigatran etexilate (Pradaxa) 1 cap PO BID diltiazem HCl 1 cap PO DAILY ferrous gluconate 256 mg PO DAILY 30 days yqasduqvhpf-uercmjwjg-depoyzuo 100-62.5-25 mcg (Trelegy Ellipta) 1 puff PO DAILY food supplemt, lactose-reduced (Ensure oral liquid) 1 ea PO DAILY 30 days ipratropium-albuterol 20-100 mcg/actuation (Combivent Respimat) 1 puff PO QID lansoprazole 30 mg PO DAILY 90 days loratadine (Allergy Relief (loratadine)) 10 mg PO DAILY metoprolol tartrate 1 tab PO BID potassium chloride (Klor-Con) 1 packet PO DAILY potassium chloride ER 20 mEq PO DAILY 90 days prednisone 40 mg PO DAILY roflumilast (Daliresp) 1 tab PO DAILY Tobacco use date assessed: 07/20/23 Fall risk assessment: No Falls in past year Last assessed Fall Risk: 07/20/23 Dental Screening Dental Screen Date: 07/20/23 HPI f/u underweight, anxiety/depression HPI Details 78 y/o female presents to f/u underweight, anxiety/depression. Had referred her to therapy and also to gastroenterology. Weight today 86 lbs, down from 87 on 06/09/23. Pt notes she does feel hungry and is eating but is unsure why she continues losing weight. Had sent her prescription for Ensure but pt reports insurance did not pay for it. PHQ-9 scoring 1 today, SASHA-7 4. She notes does feel a bit anxious/depressed. [facility] Medical History COVID-19 vaccine administered Arthritis GERD (gastroesophageal reflux disease) Depression Oxygen dependent COPD (chronic obstructive pulmonary disease) Arrhythmia HTN (hypertension) Surgical History Hx of appendectomy H/O colonoscopy Social History Housing: House Are you a primary certified social workers in health care to a significant other at home: No Do you presently have visiting nurse or other home services: No Patient Tobacco Use Status: Former Tobacco user Quit Date: 2012 Tobacco use type: Cigarette e-Cigarette/Vaping Use: Never Used Second Hand Smoke Exposure: No Current occupational status: retired Current occupational exposures/hazards: No Hearing needs: No Questionnaire PHQ-9 Over the last 2 weeks, how often have you been bothered by any of the following problems? 1. Little interest or pleasure in doing things: not at all 2. Feeling down, depressed, or hopeless: not at all 3. Trouble falling or staying asleep, or sleeping too much: not at all 4. Feeling tired or having little energy: several days 5. Poor appetite or overeating: not at all 6. Feeling bad about yourself - or that you are a failure or have let yourself or your family down: not at all 7. Trouble concentrating on things, such as reading the newspaper or watching television: not at all 8. Moving or speaking so slowly that other people could have noticed. Or the opposite - being so fidgety or restless that you have been moving around a lot more than usual: not at all 9. Thoughts that you would be better off or of hurting yourself in some way: not at all Total score: 1 Depression Screening Interpretation: Negative Depression Screening Done: Yes 91523 - PHQ-9 Billing: Yes Source: Developed by Drs. Kyle Urena, Holli Avalos, Jules Monteiro and colleagues, with an educational bernadette from [employer]. Thrive Questionnaire Date Thrive assessed: 05/21/22 SASHA-7 AMB Questionnaire SASHA-7 Date SASHA - 7 assessed: 07/20/23 Feeling nervous, anxious, or on edge: 1 = Several days Not being able to stop or control worryin = Not at all Worrying too much about different things: 3 = Nearly every day Trouble relaxin = Not at all Being so restless that it is hard to sit still: 0 = Not at all Becoming easily annoyed or irritable: 0 = Not at all Feeling afraid as if something awful might happen: 0 = Not at all Total SASHA-7 score (0-4 normal; 5-9 mild; 10-14 moderate; 15-21 severe): 4 Source: Developed by Drs. Kyle Urena, Holli Avalos, Jules Monteiro and colleagues, with an educational bernadette from [employer]. SASHA-7 Assessment Billing SASHA-7 Assessment Tool: SASHA-7 Assessment [id number] Review of Systems Const Denies chills, Denies fatigue, Denies fever(s), Denies headache(s) and Denies weakness ENT Denies dizziness and Denies headache(s) Card Denies dyspnea Resp Denies cough, Denies dyspnea, Denies wheezing and Denies other (shortness of breath) Musc Denies numbness and Denies tingling Neuro Denies dizziness, Denies headache(s), Denies numbness, Denies tingling and Denies weakness Psych Denies anxiety and Denies depression Endo Denies fatigue Aller/Immun Denies wheezing Physical exam (Primary Care) Vital Signs: Last Vital Signs Pulse 65 07/20/23 14:31 BP 118/68 07/20/23 14:31 Pulse Ox 92 07/20/23 14:31 Oxygen Delivery Method Room Air 07/20/23 14:31 Oxygen Flow Rate 3 07/20/23 14:31 BMI result Body Mass Index 16.9 Tobacco/Smoking Status: Tobacco use Status Tobacco use date assessed 07/20/23 07/20/23 14:43 Patient Tobacco Use Status Former Tobacco user 07/20/23 14:43 Tobacco use type Cigarette 07/20/23 14:43 e-Cigarette/Vaping Use Never Used 07/20/23 14:43 PHQ-9: PHQ-9 Score PHQ-9: Total score 1 07/20/23 14:43 Depression Screening Interpretation: Negative Thrive Assessment: Date of Thrive Assessment Date Thrive assessed 05/21/22 07/20/23 14:43 Const General: well developed; No acute distress Nutritional Appearance: underweight Orientation/consciousness: patient oriented x3 HENMT Head: Yes normocephalic and Yes atraumatic Eyes General: appearance normal, both eyes and all related structures Pupils: Equal, round and reactive pupils present EOM: EOMs intact bilaterally Resp Effort & Inspection: normal respiratory effort GI Other: Loud bowel sounds Neuro General: patient oriented x3 and gait normal Cranial nerves: Yes Equal, round and reactive pupils present Psych Affect: normal affect Assessment and Plan Assessment & Plan (1) HTN (hypertension): Code(s): I10 - Essential (primary) hypertension Plan: Controlled. Continue?current?medication (2) Underweight: Code(s): R63.6 - Underweight Plan: Ongoing?weight?loss. Was?unable?to?get?ensure. Will?try?prescribing?this?again?and?should?be?faxed?to?a?medical?supply?store. Trial?my?gastro?to?stimulate?appetite Referred?to?[facility]?at?patient?request (3) Failure to thrive in adult: Code(s): R62.7 - Adult failure to thrive Plan: As?above (4) Anxiety with depression: Code(s): F41.8 - Other specified anxiety disorders Plan: Patient's?anxiety?seems?primarily?due?to?her?weight?loss Working?on?underlying?issue?and?she?will?continue?citalopram1 Medications: New megestrol 20 mg PO BID 30 days 60 tabs 0RF Refilled food supplemt, lactose-reduced (Ensure oral liquid) 1 ea PO DAILY 30 days 7,110 mL 3RF R62.7 - Adult failure to thrive, R63.6 - Underweight food supplemt, lactose-reduced (Ensure oral liquid) 1 ea PO DAILY 30 days 7,110 mL 3RF R62.7 - Adult failure to thrive, R63.6 - Underweight Coding Level of Care Code Est Pt Level 4 (98509) Diagnoses HTN (hypertension) I10 Underweight R63.6 Failure to thrive in adult R62.7 Anxiety with depression F41.8 Additional Codes SASHA-7 Assessment Billing - SASHA-7 Assessment Tool: SASHA-7 Assessment [id number] ([id number])
== END 2023-07-20 15:20 | disposition home or self-care (01) ==
PROVIDERS: PCP Family Medicine; Visit Provider Family Medicine
DX: I10 Essential (primary) hypertension (principal); R63.6 Underweight; R62.7 Adult failure to thrive; F41.8 Other specified anxiety disorders
CPT/HCPCS: 99214

== ENCOUNTER 2023-08-31 11:41 | Outpatient (REF) | payer MEDICARE, SELFPAY ==
[2023-08-31 14:24] LABS: MANUAL DIFF FLAG NO
[2023-08-31 14:26] LABS: Appearance Urine Clear; Color Urine Yellow; Glucose Urine UA Negative (Negative); Leukocyte Esterase Urine Negative (Negative); Nitrite Urine Negative (Negative); Specific Gravity - Urine >= 1.030 (1.005-1.025); UMIC TRIGGER UA YES; Urine Blood Negative (Negative); Urine Ketones Negative (Negative); Urine Protein 30 (1+) mg/dL (Neg-Trace)
[2023-08-31 14:38] LABS: Basophils Absolute Auto 0.1 X10*3/uL (0.0-0.2); Basophils Percent Auto 0.7 % (0-2); Eosinophils Absolute Auto 0.2 X10*3/uL (0.0-0.4); Eosinophils Percent Auto 3.1 % (0-4); Hematocrit 37.1 % (37.0-47.0); Hemoglobin 11.8 g/dl (12.0-16.0); Imm Gran Abs Auto 0.02 X10*3/uL (0.00-0.03); Imm Gran Pct Auto 0.3 % (0.0-0.4); Lymphocytes Absolute Auto 1.2 X10*3/uL (1.2-4.9); Mean Corpuscular HGB Conc 31.8 g/dl (31.0-35.0); Mean Corpuscular Hemoglobin 32.2 pg (27.0-33.0); Mean Corpuscular Volume 101.1 fL (80.0-98.0); Mean Platelet Volume 10.4 fL (9.4-12.3); Monocytes Absolute Auto 0.4 X10*3/uL (0.1-1.2); Monocytes Percent Auto 5.8 % (2-11); Neutrophils Percent Auto 73.1 % (45-73); Platelet Count 183 X10*3/uL (160-400); Red Blood Count 3.67 X10*6/uL (4.20-5.50); Red Cell Distribution Width 11.9 % (11.0-16.0); White Blood Count 6.8 X10*3/uL (4.8-10.8)
[2023-08-31 14:47] LABS: Bacteria Urine None Seen (None Seen); Calcium Oxalate Crystals Urine Present; RBC Urine 0-2 /HPF (0-2); Squamous Epithelial Cell Urine 0-2 /HPF (0-2); WBC Urine 0-5 /HPF (0-5)
[2023-08-31 15:10] LABS: Alanine Aminotransferase 11 U/L (0-31); Alkaline Phosphatase 82 U/L (39-117); Anion Gap 13 (12-20); Aspartate Amino Transferase 18 U/L (5-31); Bilirubin Total 0.3 mg/dL (0.0-1.0); Blood Urea Nitrogen 16 mg/dL (9-16); Carbon Dioxide 36 mmol/L (22-29); Chloride 97 mmol/L (96-108); Estimated Glomerular Filt Rate > 60; Glucose Fasting 80 mg/dL (60-99); Potassium 4.2 mmol/L (3.3-5.1); Sodium 142 mmol/L (135-145); Total Protein 7.1 g/dL (6.5-8.0)
[2023-08-31 15:26] LABS: TSH reflex Free T4 2.47 uIU/mL (0.32-4.0)
== END 2023-08-31 11:42 | disposition home or self-care (01) ==
LOC: HO.WFDLDS 11:41
PROVIDERS: Visit Provider Family Medicine
DX: Z00.00 Encounter for general adult medical examination without abnormal findings (principal); R62.7 Adult failure to thrive
CPT/HCPCS: 36415; 80053; 81001; 84443; 85025

== ENCOUNTER 2023-09-01 14:22 | Outpatient (AMB) | payer MEDICARE, SELFPAY ==
[2023-09-01 14:24] VITALS: BP 140/82; PULSE 72; O2SAT 90; BMI 16.6
--- NOTE | 2023-09-01 14:24 | MHC.PC.OV ---
Vital Signs 09/01/23 14:24 Height 5 ft Weight 85 lb 4 oz BMI 16.6 BP 140/82 H Blood Pressure Location Lt brachial Position Sitting Pulse 72 Pulse Source Pulse Oximeter Pulse Oximetry (%) 90 L Oxygen Delivery Method Nasal Cannula Oxygen Flow Rate 2.5 Intake Visit Reasons: f/u underweight Intake Note: Patient is here to follow up on being underwieght, she does have a question about the shekes, with too much dairy and CPOD. Allergies pantoprazole Allergy (Intermediate, Verified 09/01/23 14:30) mouth le Penicillins Allergy (Intermediate, Verified 09/01/23 14:30) Itching Tobacco use date assessed: 09/01/23 Fall risk assessment: 1 Fall in past year Last assessed Fall Risk: 09/01/23 Dental Screening Dental Screen Date: 09/01/23 Did you have a dental visit in the last 12 months?: No Did you have a dental problem in the last 6 months where you did not have access to dental care?: No Was dental information given to patient?: No HPI f/u underweight HPI Details 78 y/o female presents to f/u failure to thrive and anxiety/depression. Had referred her to gastroenterology at [facility] per pt request. Labs were drawn 08/31/23. Reviewed labs with pt. Mild stable anemia. Blood pressure today 140/82. She is on metoprolol and diltiazem but pt reports she is unfamiliar with metoprolol. She is unsure what she is taking at home. Pt has lost another lb. Had prescribed Megace but she did not tolerate this due to dry mouth. [facility] Medical History COVID-19 vaccine administered Arthritis GERD (gastroesophageal reflux disease) Depression Oxygen dependent COPD (chronic obstructive pulmonary disease) Arrhythmia HTN (hypertension) Surgical History Hx of appendectomy H/O colonoscopy Social History Housing: House Are you a primary summer child caregiver to a significant other at home: No Do you presently have visiting nurse or other home services: No Patient Tobacco Use Status: Former Tobacco user Quit Date: 2012 Tobacco use type: Cigarette e-Cigarette/Vaping Use: Never Used Second Hand Smoke Exposure: No Current occupational status: retired Current occupational exposures/hazards: No Hearing needs: No Questionnaire Thrive Questionnaire Date Thrive assessed: 05/21/22 SASHA-7 AMB Questionnaire SASHA-7 Date SASHA - 7 assessed: 07/20/23 Source: Developed by Drs. Kyle Urena, Holli Avalos, Jules Monteiro and colleagues, with an educational bernadette from [employer] Review of Systems Const Denies chills, Denies fatigue, Denies fever(s), Denies headache(s) and Denies weakness ENT Denies dizziness and Denies headache(s) Card Denies dyspnea Resp Denies cough, Denies dyspnea, Denies wheezing and Denies other (shortness of breath) Musc Denies numbness and Denies tingling Neuro Denies dizziness, Denies headache(s), Denies numbness, Denies tingling and Denies weakness Psych Denies anxiety and Denies depression Endo Denies fatigue Aller/Immun Denies wheezing Physical exam (Primary Care) Vital Signs: Last Vital Signs Pulse 72 09/01/23 14:24 BP 140/82 H 09/01/23 14:24 Pulse Ox 90 L 09/01/23 14:24 Oxygen Delivery Method Nasal Cannula 09/01/23 14:24 Oxygen Flow Rate 2.5 09/01/23 14:24 BMI result Body Mass Index 16.6 Tobacco/Smoking Status: Tobacco use Status Tobacco use date assessed 09/01/23 09/01/23 14:32 Patient Tobacco Use Status Former Tobacco user 09/01/23 14:32 Tobacco use type Cigarette 09/01/23 14:32 e-Cigarette/Vaping Use Never Used 09/01/23 14:32 Thrive Assessment: Date of Thrive Assessment Date Thrive assessed 05/21/22 09/01/23 14:32 Const General: well developed; No acute distress Nutritional Appearance: underweight Orientation/consciousness: patient oriented x3 HENMT Head: Yes normocephalic and Yes atraumatic Eyes General: appearance normal, both eyes and all related structures Pupils: Equal, round and reactive pupils present EOM: EOMs intact bilaterally Resp Effort & Inspection: normal respiratory effort Neuro General: patient oriented x3 and gait normal Cranial nerves: Yes Equal, round and reactive pupils present Psych Affect: normal affect Assessment and Plan Assessment & Plan (1) Failure to thrive in adult: Code(s): R62.7 - Adult failure to thrive Plan: Patient?has?lost?another?pound Had?prescribed?Megace?as?nothing?else?has?really?helped?but?patient?did?not?tolerated?due?to?dry?mouth. She?will?try?taking?half?a?tablet?daily?and?tolerating?that?will?try?half?a?tablet?twice?a?day. Continue?ensure Could?also?consider?mirtazapine?if?she?does?not?tolerate?Megace (2) Underweight: Code(s): R63.6 - Underweight Plan: As?above (3) Anemia: Code(s): D64.9 - Anemia, unspecified Plan: Essentially?resolved She?can?stop?iron?and?this?may?improve?her?appetite?as?well Will?recheck?labs?prior?to?next?visit (4) HTN (hypertension): Code(s): I10 - Essential (primary) hypertension Plan: Blood?pressure?is?little?elevated?today.??Med?list?states?that?she?is?taking?diltiazem?240?mg?and?metoprolol?25?mg?b.i.d. Checking?with?pharmacy?and?unclear?if?she?is?gotten?this?since?July?script Will?follow-up?in?1?month (5) Anxiety with depression: Code(s): F41.8 - Other specified anxiety disorders Plan: Taking?cetirizine Stable Orders: Orders Complete Blood Count Auto Diff Today D64.9 - Anemia, unspecified, Z00.00 - Encounter for general adult medical examination without abnormal findings Vitamin B12 and Folate Today D64.9 - Anemia, unspecified, E53.8 - Deficiency of other specified B group vitamins Comprehensive [place]. Panel Fast Today R62.7 - Adult failure to thrive, Z00.00 - Encounter for general adult medical examination without abnormal findings IRON PROFILE Today D64.9 - Anemia, unspecified Medications: New mecobalamin (vitamin B12) 1,000 mcg PO DAILY 90 tabs 2RF 90 days Changed From megestrol 20 mg PO BID 30 days 60 tabs 0RF To megestrol 10 mg (1/2 x 20 mg) PO BID 30 tabs 2RF 30 days From metoprolol tartrate 1 tab PO BID To metoprolol tartrate 25 mg PO BID 180 tabs 2RF 90 days Refilled food supplemt, lactose-reduced (Ensure oral liquid) 1 ea PO DAILY 7,110 mL 3RF 30 days R62.7 - Adult failure to thrive, R63.6 - Underweight Discontinued ferrous gluconate Discontinued Reason: Doctor's Order 256 mg PO DAILY 30 days 30 tabs 3RF Coding Level of Care Code Est Pt Level 4 (24924) Diagnoses Failure to thrive in adult R62.7 Underweight R63.6 Anemia D64.9 HTN (hypertension) I10 Anxiety with depression F41.8
== END 2023-09-01 15:23 | disposition home or self-care (01) ==
PROVIDERS: PCP Family Medicine; Visit Provider Family Medicine
DX: R62.7 Adult failure to thrive (principal); R63.6 Underweight; D64.9 Anemia, unspecified; I10 Essential (primary) hypertension; F41.8 Other specified anxiety disorders
CPT/HCPCS: 99214

== ENCOUNTER 2023-10-12 15:49 | Outpatient (AMB) | payer MEDICARE, SELFPAY ==
--- NOTE | 2023-10-12 16:10 | A.OFFPC_ITS ---
Vital Signs 10/12/23 16:11 Height 5 ft Weight 81 lb BMI 15.8 BP 110/68 Blood Pressure Location Lt brachial Position Sitting Pulse 84 Pulse Source Pulse Oximeter Pulse Oximetry (%) 98 Oxygen Delivery Method Room Air Intake Visit Reasons: 3 month F/U Intake Note: Patient is here for a 3 month follow up, for weight loss and failure to thrive Allergies pantoprazole Allergy (Intermediate, Verified 10/12/23 16:19) mouth le Penicillins Allergy (Intermediate, Verified 10/12/23 16:19) Itching Medication List - Last Reconciled 10/12/23 by Elpidio Alba MD albuterol sulfate 1 vial inhalation Q6H PRN atorvastatin 10 mg PO DAILY 90 days chlorhexidine gluconate 4% (Hibiclens) 1 appl topical DAILY 14 days citalopram 20 mg PO DAILY 30 days dabigatran etexilate (Pradaxa) 1 cap PO BID diltiazem HCl CD 1 cap PO DAILY lwecqlnyxjc-ebtbaeskh-vtrcqygz 100-62.5-25 mcg (Trelegy Ellipta) 1 puff PO DAILY food supplemt, lactose-reduced (Ensure oral liquid) 1 ea PO DAILY 30 days food supplemt, lactose-reduced (Ensure oral liquid) 1 ea PO DAILY 30 days ipratropium-albuterol 20-100 mcg/actuation (Combivent Respimat) 1 puff PO QID lansoprazole 30 mg PO DAILY 90 days loratadine (Allergy Relief (loratadine)) 10 mg PO DAILY mecobalamin (vitamin B12) 1,000 mcg PO DAILY 90 days megestrol 10 mg (1/2 x 20 mg) PO BID 30 days metoprolol tartrate 25 mg PO BID 90 days potassium chloride (Klor-Con) 1 packet PO DAILY potassium chloride ER 20 mEq PO DAILY 90 days prednisone 40 mg PO DAILY roflumilast (Daliresp) 1 tab PO DAILY Tobacco use date assessed: 09/01/23 Dental Screening Dental Screen Date: 09/01/23 HPI 3 month F/U HPI Details 78 y/o female presents to f/u hypertensi on, failure to thrive/underweight status. Blood pressure today 110/68. She is on metoprolol 25mg. Lost about 4lbs since last office visit 09/01/23 - BMI today 15.8. PFSH Medical History COVID-19 vaccine administered Arthritis GERD (gastroesophageal reflux disease) Depression Oxygen dependent COPD (chronic obstructive pulmonary disease) Arrhythmia HTN (hypertension) Surgical History Hx of appendectomy H/O colonoscopy Social History Housing: House Are you a primary medicare compliance auditor to a significant other at home: No Do you presently have visiting nurse or other home services: No Patient Tobacco Use Status: Former Tobacco user Quit Date: 2012 Tobacco use type: Cigarette e-Cigarette/Vaping Use: Never Used Second Hand Smoke Exposure: No Current occupational status: retired Current occupational exposures/hazards: No Hearing needs: No Questionnaire Thrive Questionnaire Date Thrive assessed: 05/21/22 SASHA-7 AMB Questionnaire SASHA-7 Date SASHA - 7 assessed: 07/20/23 Source: Developed by Drs. Kyle Urena, Holli Avalos, Jules Monteiro and colleagues, with an educational bernadette from [employer]. Review of Systems Const Denies chills, Denies fatigue, Denies fever(s), Denies headache(s) and Denies weakness ENT Denies dizziness and Denies headache(s) Card Denies dyspnea Resp Denies cough, Denies dyspnea, Denies wheezing and Denies other (shortness of breath) Musc Denies numbness and Denies tingling Neuro Denies dizziness, Denies headache(s), Denies numbness, Denies tingling and Denies weakness Psych Denies anxiety and Denies depression Endo Denies fatigue Aller/Immun Denies wheezing Physical exam (Primary Care) Vital Signs: Last Vital Signs Pulse 84 10/12/23 16:11 BP 110/68 10/12/23 16:11 Pulse Ox 98 10/12/23 16:11 Oxygen Delivery Method Room Air 10/12/23 16:11 BMI result Body Mass Index 15.8 Tobacco/Smoking Status: Tobacco use Status Tobacco use date assessed 09/01/23 10/12/23 16:13 Patient Tobacco Use Status Former Tobacco user 10/12/23 16:13 Tobacco use type Cigarette 10/12/23 16:13 e-Cigarette/Vaping Use Never Used 10/12/23 16:13 Thrive Assessment: Date of Thrive Assessment Date Thrive assessed 05/21/22 10/12/23 16:13 Const General: well developed; No acute distress Nutritional Appearance: underweight Orientation/consciousness: patient oriented x3 HENMT Head: Yes normocephalic and Yes atraumatic Eyes General: appearance normal, both eyes and all related structures Pupils: Equal, round and reactive pupils present EOM: EOMs intact bilaterally Resp Effort & Inspection: normal respiratory effort Neuro General: patient oriented x3 and gait normal Cranial nerves: Yes Equal, round and reactive pupils present Psych Affect: normal affect Assessment and Plan Assessment & Plan (1) HTN (hypertension): Code(s): I10 - Essential (primary) hypertension Plan: Blood?pressure?is?much?better?controlled?now.??Goal?is?less?than?130/90 Continue?current?medication (2) Underweight: Code(s): R63.6 - Underweight Plan: Ongoing?underweight?and?still?continues?to?lose?weight. Failure?to?thrive Megace?has?not?stimulated?her?appetite She?has?been?referred?to?[facility]?gastroenterology Daughter?says?they?were?contacted?but?have?him?an?appointm ent?yet.??They?will?contact?the?department?to?get?scheduled. Continue?current?medications?and?work?at?increasing?food?intake (3) Failure to thrive in adult: Code(s): R62.7 - Adult failure to thrive Plan: As?above (4) Oxygen dependent: Comment: 2L Code(s): Z99.81 - Dependence on supplemental oxygen Plan: Stable?and?breathing?well?today.??History?of?COPD?as?well. 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 Orders: Orders Urine Culture Today R30.0 - Dysuria UA and rflx microscopic Today R30.0 - Dysuria, Z00.00 - Encounter for general adult medical examination without abnormal findings Medications: New nitrofurantoin monohyd/m-cryst 100 mg (Macrobid) must administer with a meal/food 100 mg PO BID 7 days 14 caps 0RF Coding Level of Care Code Est Pt Level 4 (63710) Diagnoses HTN (hypertension) I10 Underweight R63.6 Failure to thrive in adult R62.7 Oxygen dependent Z99.81 Dysuria R30.0
[2023-10-12 16:11] VITALS: BP 110/68; PULSE 84; O2SAT 98; BMI 15.8
== END 2023-10-12 17:07 | disposition home or self-care (01) ==
PROVIDERS: PCP Family Medicine; Visit Provider Family Medicine
DX: I10 Essential (primary) hypertension (principal); R63.6 Underweight; R62.7 Adult failure to thrive; Z99.81 Dependence on supplemental oxygen; R30.0 Dysuria
CPT/HCPCS: 99214

== ENCOUNTER 2023-10-12 16:57 | Outpatient (REF) | payer MEDICARE, SELFPAY ==
[2023-10-13 11:40] LABS: Appearance Urine Cloudy; Color Urine Yellow; Glucose Urine UA Negative (Negative); Leukocyte Esterase Urine Negative (Negative); Nitrite Urine Negative (Negative); PH 6.5 (5.0-9.0); Specific Gravity - Urine 1.025 (1.005-1.025); UMIC TRIGGER UA YES; Urine Blood Negative (Negative); Urine Ketones Negative (Negative); Urine Protein 30 (1+) mg/dL (Neg-Trace)
[2023-10-13 11:52] LABS: Bacteria Urine None Seen (None Seen); RBC Urine 0-2 /HPF (0-2); Squamous Epithelial Cell Urine 0-2 /HPF (0-2); WBC Urine 0-5 /HPF (0-5)
== END 2023-10-12 16:58 | disposition home or self-care (01) ==
LOC: HO.LAB 16:57
PROVIDERS: Visit Provider Family Medicine
DX: Z00.00 Encounter for general adult medical examination without abnormal findings (principal); R30.0 Dysuria
CPT/HCPCS: 81001; 87086

== ENCOUNTER → 2024-01-03 16:28 | Outpatient (AMB) | payer MEDICARE, SELFPAY ==
[2024-01-03 16:30] VITALS: BP 122/64; PULSE 71; O2SAT 94; BMI 15.7
--- NOTE | 2024-01-03 16:30 | A.OFFPC_ITS ---
Vital Signs 01/03/24 16:30 Height 5 ft Weight 80 lb 8 oz BMI 15.7 BP 122/64 Blood Pressure Location Rt brachial Position Sitting Pulse 71 Pulse Source Pulse Oximeter Pulse Oximetry (%) 94 Oxygen Delivery Method Nasal Cannula Oxygen Flow Rate 2 Intake Visit Reasons: f/u chronic conditions Intake Note: Elzbieta is a 78 year old female who presents to the office today for a f/u chronic conditions. Patients neurologist is retiring and gets her Oxycodone prescribed from her neurologist and is wondering if Dr. Singleton would fill the prescriptiojn while they find another neurologist. The referral that was placed for GI her insurnace doesnt take so they would like a referral to GI in [place]. Accompanied by: daughter Allergies pantoprazole Allergy (Intermediate, Verified 01/03/24 16:36) mouth le Penicillins Allergy (Intermediate, Verified 01/03/24 16:36) Itching Medication List - Last Reconciled 01/03/24 by Elpidio Alba MD albuterol sulfate 1 vial inhalation Q6H PRN atorvastatin 10 mg PO DAILY 90 days chlorhexidine gluconate 4% (Hibiclens) 1 appl topical DAILY 14 days citalopram 20 mg PO DAILY 30 days dabigatran etexilate (Pradaxa) 1 cap PO BID diltiazem HCl CD 1 cap PO DAILY tuvmwyffgqj-wmvqjejud-pstfujyl 100-62.5-25 mcg (Trelegy Ellipta) 1 puff PO DAILY food supplemt, lactose-reduced (Ensure oral liquid) 1 ea PO DAILY 30 days food supplemt, lactose-reduced (Ensure oral liquid) 1 ea PO DAILY 30 days ipratropium-albuterol 20-100 mcg/actuation (Combivent Respimat) 1 puff PO QID lansoprazole 30 mg PO DAILY 90 days loratadine (Allergy Relief (loratadine)) 10 mg PO DAILY mecobalamin (vitamin B12) 1,000 mcg PO DAILY 90 days megestrol 10 mg (1/2 x 20 mg) PO BID 30 days metoprolol tartrate 25 mg PO BID 90 days potassium chloride (Klor-Con) 1 packet PO DAILY potassium chloride ER 20 mEq PO DAILY 90 days prednisone 40 mg PO DAILY roflumilast (Daliresp) 1 tab PO DAILY Tobacco use date assessed: 09/01/23 Dental Screening Dental Screen Date: 09/01/23 Did you have a dental visit in the last 12 months?: No Did you have a dental problem in the last 6 months where you did not have access to dental care?: No Was dental information given to patient?: Patient has dentist HPI f/u chronic conditions HPI Details 78 y/o female presents to f/u [facility] t/failure to thrive and hypertension. Blood pressure today 122/64. She is on metoprolol 25mg b.i.d. No significant change to her weight since her last office visit in October. O2 sat 91 today. They note she had a few bad days of breathing difficulties but has been improving. They note mai has been helping a bit with her appetite. She notes they have contacted GI but they are having difficulty finding one c overed by their insurance. HPI Comments History of Present Illness Details Documentation assistance for Elpidio Alba MD, was provided by Bebeto Starr,? Assistant Therapy Aide on 01/03/2024 at 5:24 PM EST. I, Dr. Alba, have read, observed, and verified documentation. [facility] Medical History COVID-19 vaccine administered Arthritis GERD (gastroesophageal reflux disease) Depression Oxygen dependent COPD (chronic obstructive pulmonary disease) Arrhythmia HTN (hypertension) Surgical History Hx of appendectomy H/O colonoscopy Social History Housing: House Are you a primary manager career to a significant other at home: No Do you presently have visiting nurse or other home services: No Patient Tobacco Use Status: Former Tobacco user Tobacco use type: Cigarette e-Cigarette/Vaping Use: Never Used Second Hand Smoke Exposure: No Current occupational status: retired Current occupational exposures/hazards: No Hearing needs: No Questionnaire PHQ-9 Over the last 2 weeks, how often have you been bothered by any of the following problems? 1. Little interest or pleasure in doing things: not at all 2. Feeling down, depressed, or hopeless: more than half the days 3. Trouble falling or staying asleep, or sleeping too much: not at all 4. Feeling tired or having little energy: more than half the days 5. Poor appetite or overeating: several days 6. Feeling bad about yourself - or that you are a failure or have let yourself or your family down: several days 7. Trouble concentrating on things, such as reading the newspaper or watching television: not at all 8. Moving or speaking so slowly that other people could have noticed. Or the opposite - being so fidgety or restless that you have been moving around a lot more than usual: not at all 9. Thoughts that you would be better off or of hurting yourself in some way: not at all Total score: 6 Depression Screening Interpretation: Negative Depression Screening Done: Yes 53674 - PHQ-9 Billing: Yes Source: Developed by Drs. Kyle Urena, Holli Avalos, Jules Monteiro and colleagues, with an educational bernadette from [employer]. Thrive Questionnaire Date Thrive assessed: 01/03/24 I am a: Patient What is your living situation today?: I have a steady place to live Within the past 12 months, did the food you bought not last and you didn't have the money to get more?: Never true Within the past 12 months, did you worry whether your food would run out before you got money to buy more?: Never true Do you have trouble paying for medicines?: No Do you have trouble getting transportation to medical appointments?: No Do you have trouble paying your heating and electricity bill?: No Do you have trouble taking care of your child, family member or friend?: No Do you have trouble with day-to-day activities such as bathing, preparing meals, shopping, managing finances, etc.?: No Are you currently unemployed and looking for a job?: No Are you interested in more education?: No THRIVE Score: 0 AUDIT C Alcohol Use Questionnaire (AUDIT-C) 1. How often do you have a drink containing alcohol?: Never 3. How often do you have six or more drinks on one occasion?: Never Total Score: 0 SAHSA-7 AMB Questionnaire SASHA-7 Date SASHA - 7 assessed: 01/03/24 Feeling nervous, anxious, or on edge: 0 = Not at all Not being able to stop or control worryin = Several days Worrying too much about different things: 1 = Several days Trouble relaxin = Not at all Being so restless that it is hard to sit still: 0 = Not at all Becoming easily annoyed or irritable: 2 = More than half the days Feeling afraid as if something awful might happen: 0 = Not at all Total SASHA-7 score (0-4 normal; 5-9 mild; 10-14 moderate; 15-21 severe): 4 Source: Developed by Drs. Kyle Urena, Holli Avalos, Jules Monteiro and colleagues, with an educational bernadette from [employer]. SASHA-7 Assessment Billing SASHA-7 Assessment Tool: SASHA-7 Assessment 15144 Review of Systems Const Denies chills, Denies fatigue, Denies fever(s), Denies headache(s) and Denies weakness ENT Denies dizziness and Denies headache(s) Card Denies dyspnea Resp Denies cough, Denies dyspnea, Denies wheezing and Denies other (shortness of breath) Musc Denies numbness and Denies tingling Neuro Denies dizziness, Denies headache(s), Denies numbness, Denies tingling and Denies weakness Psych Denies anxiety and Denies depression Endo Denies fatigue Aller/Immun Denies wheezing Physical exam (Primary Care) Vital Signs: Last Vital Signs Pulse 71 01/03/24 16:30 BP 122/64 01/03/24 16:30 Pulse Ox 94 01/03/24 16:30 Oxygen Delivery Method Nasal Cannula 01/03/24 16:30 Oxygen Flow Rate 2 01/03/24 16:30 BMI result Body Mass Index 15.7 Tobacco/Smoking Status: Tobacco use Status Tobacco use date assessed 09/01/23 01/03/24 16:42 Patient Tobacco Use Status Former Tobacco user 01/03/24 16:42 Tobacco use type Cigarette 01/03/24 16:42 e-Cigarette/Vaping Use Never Used 01/03/24 16:42 PHQ-9: PHQ-9 Score PHQ-9: Total score 6 01/03/24 16:47 Depression Screening Interpretation: Negative Thrive Assessment: Date of Thrive Assessment Date Thrive assessed 05/21/22 01/03/24 16:42 Const General: well developed; No acute distress Nutritional Appearance: underweight Orientation/consciousness: patient oriented x3 HENMT Head: Yes normocephalic and Yes atraumatic Eyes General: appearance normal, both eyes and all related structures Pupils: Equal, round and reactive pupils present EOM: EOMs intact bilaterally Resp Other: Coarse breath sounds Effort & Inspection: normal respiratory effort Neuro General: patient oriented x3 and gait normal Cranial nerves: Yes Equal, round and reactive pupils present Psych Affect: normal affect Assessment and Plan Assessment & Plan (1) HTN (hypertension): Code(s): I10 - Essential (primary) hypertension Plan: Blood?pressure?is?controlled.??Goal?is?less?than?140/90 Continue?current?medications (2) Underweight: Code(s): R63.6 - Underweight Plan: Ongoing?underweight?status?though?it?has?leveled?off?some Encouraged?increased?food?intake?as?tolerated - family?to?offer?more?high-calorie?foods?and?foods?that?patient?like Has?not?seen?Gastroenterology?despite?to?referrals?due?to?insurance?issue Will?ask?the?referrals?team?to?find?a?rn endocrinology?who?takes?her?insurance Continue?Megace Continue?ensure Could?consider?cyproheptadine?rather?than?Megace?but?cyproheptadine?can?interact ?with?potassium.??She?had?been?on?potassium?previously.??Family?is?unsure?if?she ?is?still?taking?this?but?they?will?let?me?know?at?next?visit. (3) Failure to thrive in adult: Code(s): R62.7 - Adult failure to thrive Plan: As?above (4) Oxygen dependent: Comment: 2L Code(s): Z99.81 - Dependence on supplemental oxygen Plan: History?of?COPD,?respiratory?failure?and?hypoxia Currently?stable?though?she?says?she?had?a?recent?exacerbation?and?is ?now?breathing?easily?once?more. Continue?current?inhaled?medications?and?follow- up?with?Pulmonary?Medicine?in?[place] (5) Chronic pain: Code(s): G89.29 - Other chronic pain Plan: Patient?notes?that?she?has?had?chronic?had?pain/headaches?and?has?been?followed? by?, neurology?who?has?successfully?treated?her?with?Percocet?b.i.d. is?retiring. We?discussed?that?I?can?take?over?this?medication?but?will?need?her?to?sign?a?pa in?contract?and?also?I?will?need?Dr. Helton's most?recent?visit?note. We?also?discussed?that?as?she?has?some?respiratory?failure,?I?would?not?intend?t o?increase?this?medication?as?this?could?cause?worsening?respiratory?drive.??Pat ient?understands Orders: Referrals Gastroenterology Referral R62.7 - Adult failure to thrive, R63.6 - Underweight Coding Level of Care Code Est Pt Level 4 (87203) Diagnoses HTN (hypertension) I10 Underweight R63.6 Failure to thrive in adult R62.7 Oxygen dependent Z99.81 Chronic pain G89.29 Additional Codes SASHA-7 Assessment Billing - SASHA-7 Assessment Tool: SASHA-7 Assessment 93103 ([id number])
== END ==
PROVIDERS: PCP Family Medicine; Visit Provider Family Medicine
DX: I10 Essential (primary) hypertension (principal); R63.6 Underweight; R62.7 Adult failure to thrive; Z99.81 Dependence on supplemental oxygen; G89.29 Other chronic pain
CPT/HCPCS: 99214

== ENCOUNTER 2024-02-17 15:32 | Outpatient (AMB) | payer MEDICARE, SELFPAY ==
--- NOTE | 2024-02-17 15:42 | A.OFFPC_ITS ---
Vital Signs 02/17/24 15:45 Height 5 ft Weight 79 lb 8 oz BMI 15.5 BP 140/70 H Blood Pressure Location Rt brachial Position Sitting Respiration 16 Pulse 72 Pulse Source Pulse Oximeter Temp 96.9 F Temp Source Tympanic Pulse Oximetry (%) 94 Oxygen Delivery Method Nasal Cannula Oxygen Flow Rate 2.5 Intake Visit Reasons: chronic pain and chronic conditions Intake Note: fllow up for chronic pain Allergies pantoprazole Allergy (Intermediate, Verified 02/17/24 15:43) mouth le Penicillins Allergy (Intermediate, Verified 02/17/24 15:43) Itching Tobacco use date assessed: 09/01/23 Dental Screening Dental Screen Date: 09/01/23 HPI chronic pain and chronic conditions HPI Details 79 y/o female presents to f/u [facility] in. Has been treated for chronic head pain/headaches by her neurologist Dr. Pathak who is retiring. I have requested his most recent note. Patient has signed contract with me. Blood pressure today 140/70, 72p. She is on metoprolol 25mg b.i.d. [facility] Medical History COVID-19 vaccine administered Arthritis GERD (gastroesophageal reflux disease) Depression Oxygen dependent COPD (chronic obstructive pulmonary disease) Arrhythmia HTN (hypertension) Surgical History Hx of appendectomy H/O colonoscopy Social History Housing: House Are you a primary career coach to a significant other at home: No Do you presently have visiting nurse or other home services: No Patient Tobacco Use Status: Former Tobacco user Tobacco use type: Cigarette e-Cigarette/Vaping Use: Never Used Second Hand Smoke Exposure: No Current occupational status: retired Current occupational exposures/hazards: No Hearing needs: No Questionnaire Thrive Questionnaire Date Thrive assessed: 01/03/24 SASHA-7 AMB Questionnaire SASHA-7 Date SASHA - 7 assessed: 01/03/24 Source: Developed by Drs. Kyle Urena, Holli Avalos, Jules Monteiro and colleagues, with an educational bernadette from [employer]. Review of Systems Const Denies chills, Denies fatigue, Denies fever(s), Denies headache(s) and Denies weakness ENT Denies dizziness and Denies headache(s) Card Denies dyspnea Resp Denies cough, Denies dyspnea, Denies wheezing and Denies other (shortness of breath) Musc Denies numbness and Denies tingling Neuro Denies dizziness, Denies headache(s), Denies numbness, Denies tingling and Denies weakness Psych Denies anxiety and Denies depression Endo Denies fatigue Aller/Immun Denies wheezing Physical exam (Primary Care) Vital Signs: Last Vital Signs Temp 96.9 F 02/17/24 15:45 Pulse 72 02/17/24 15:45 Resp 16 02/17/24 15:45 BP 140/70 H 02/17/24 15:45 Pulse Ox 94 02/17/24 15:45 Oxygen Delivery Method Nasal Cannula 02/17/24 15:45 Oxygen Flow Rate 2.5 02/17/24 15:45 BMI result Body Mass Index 15.5 Tobacco/Smoking Status: Tobacco use Status Tobacco use date assessed 09/01/23 02/17/24 15:45 Patient Tobacco Use Status Former Tobacco user 02/17/24 15:45 Tobacco use type Cigarette 02/17/24 15:45 e-Cigarette/Vaping Use Never Used 02/17/24 15:45 Thrive Assessment: Date of Thrive Assessment Date Thrive assessed 01/03/24 02/17/24 15:45 Const General: well developed; No acute distress Nutritional Appearance: well nourished Orientation/consciousness: patient oriented x3 HENMT Head: Yes normocephalic and Yes atraumatic Eyes General: appearance normal, both eyes and all related structures Pupils: Equal, round and reactive pupils present EOM: EOMs intact bilaterally Resp Effort & Inspection: normal respiratory effort Neuro General: patient oriented x3 and gait normal Cranial nerves: Yes Equal, round and reactive pupils present Psych Affect: normal affect Assessment and Plan Assessment & Plan (1) Chronic pain: Code(s): G89.29 - Other chronic pain Plan: Chronic?head?and?neck?pain?which?had?been?treated?by?her?neurologist?with?opioid ?medication?which?was?the?only?medication?that?helped. Her?neurologist?has?retired She?has?signed?pain?contract Will?assume?management?of?her?medication Urine?drug?screen?is?ordered (2) HTN (hypertension): Code(s): I10 - Essential (primary) hypertension Plan: Mildly?elevated?blood?pressure?today.??No?changes?made Will?follow up?in?a?few?months (3) Headache: Code(s): R51.9 - Headache, unspecified Plan: As?above Orders: Orders Drug Screen Urine Today G89.29 - Other chronic pain Coding Level of Care Code Est Pt Level 3 (73950) Diagnoses Chronic pain G89.29 HTN (hypertension) I10 Headache R51.9
[2024-02-17 15:45] VITALS: BP 140/70; PULSE 72; RESP 16; TEMP 36.1; O2SAT 94; BMI 15.5
== END 2024-02-17 16:47 | disposition home or self-care (01) ==
PROVIDERS: PCP Family Medicine; Visit Provider Family Medicine
DX: G89.29 Other chronic pain (principal); I10 Essential (primary) hypertension; R51.9 Headache, unspecified
CPT/HCPCS: 99213

== ENCOUNTER 2024-02-18 11:39 | Outpatient (REF) | payer MEDICARE, SELFPAY ==
[2024-02-18 12:34] LABS: Amphetamine Screen Urine Not Detected (Not Detect); Barbiturates, Urine Not Detected (Not Detect); Benzodiazepines Screen Urine Not Detected (Not Detect); Buprenorphine Scr Not Detected (Not Detect); Cannabinoid Screen Urine Not Detected (Not Detect); Cocaine Screen Urine Not Detected (Not Detect); Fentanyl, urine Not Detected (Not Detect); Methadone Screen, Urine Not Detected (Not Detect); Opiate Screen Urine Not Detected (Not Detect); Oxycodone Screen Urine Positive (Not Detect); Phencyclidine Screen Urine Not Detected (Not Detect)
== END 2024-02-18 11:40 | disposition home or self-care (01) ==
LOC: HO.LNP 11:39
PROVIDERS: Visit Provider Family Medicine
DX: G89.29 Other chronic pain (principal)
CPT/HCPCS: 80307

== ENCOUNTER 2024-02-24 04:17 | Inpatient (IN) | payer MEDICARE, SELFPAY ==
[2024-02-24] VITALS (19 sets, daily range): BP systolic 115–213; BP diastolic 53–101; PULSE 80–142; RESP 16–38; TEMP 36.7–37.9; O2SAT 2–100; BMI 16.9
--- NOTE | 2024-02-24 | ECG_ITS ---
Test Reason : WEAKNESS Blood Pressure : / mmHG Vent. Rate : 079 BPM Atrial Rate : 079 BPM P-R Int : 166 ms QRS Dur : 076 ms QT Int : 378 ms P-R-T Axes : 074 055 063 degrees QTc Int : 433 ms Normal sinus rhythm with sinus arrhythmia Normal ECG No previous ECGs available Referred By: Generic ED Physician Electronically Signed By:LISET MCCANN
--- NOTE | ~2024-02-24 | XR_ITS ---
EXAMINATION: XR CHEST CLINICAL INFORMATION: Cough and shortness of breath. COMPARISON: None available. TECHNIQUE: Frontal view of the chest was obtained. FINDINGS: The patient is mildly rotated. The cardiomediastinal silhouette is within normal limits. There is basilar scarring. There is no focal lung consolidation or pleural effusions. The bony structures are osteopenic. The soft tissues are unremarkable. XR/XR chest 1V IMPRESSION: No acute cardiopulmonary disease. Electronically signed by: Zoltan Brady MD 02/24/2024 05:02 AM EDT
--- NOTE | ~2024-02-24 | FL_ITS ---
EXAMINATION: Modified Barium Swallow CLINICAL INFORMATION: Dysphagia. COMPARISON: None. TECHNIQUE: Modified barium swallow was performed under lateral fluoroscopy with patient in standing position. Barium mixed with solids and liquids of different consistencies was administered by the speech pathologist. Examination was recorded in the fluoroscopy suite. FINDINGS: Limited exam due to patient cooperation. No obvious laryngeal penetration or aspiration was observed with the minimally ingested barium. FLUOROSCOPY TIME: 1 minute 8 seconds Number of Spot Images: N/A DOSE AREA PRODUCT: 276.6 uGy-m2 (microgray-meter squared) FL/FL Modified Barium Swallow IMPRESSION: Limited exam due to patient cooperation. No obvious laryngeal penetration or aspiration was observed with the minimally ingested barium. Refer to the speech therapy report for further clarification This procedure was performed by Jose Ochoa PA-C, and supervised by Dr. Reyes Electronically signed by: Aramis Reyes MD 02/29/2024 03:17 PM EDT
--- NOTE | ~2024-02-24 | XR_ITS ---
EXAMINATION: XR CHEST CLINICAL INFORMATION: Shortness of breath. COMPARISON: Chest x-ray from approximately 4 1/2 hours earlier the same day. TECHNIQUE: Portable AP view of the chest was obtained. FINDINGS: There has been no significant radiographic change compared with 4 1/2 hours earlier the same day. Suspect emphysema. No gross acute focal infiltrate, effusion, or pneumothorax is seen. The heart appears normal in size. The aorta is atherosclerotic and uncoiled, suggesting hypertension. XR/XR chest 1V IMPRESSION: Findings as above. Electronically signed by: Cristiano Kim MD 02/24/2024 11:09 AM EDT RP
--- NOTE | ~2024-02-24 | XR_ITS ---
EXAMINATION: XR CHEST CLINICAL INFORMATION: Shortness of breath. COMPARISON: February 24, 2024. TECHNIQUE: Portable AP view of the chest was obtained. FINDINGS: Limited by portable technique. Severe emphysema. No gross focal infiltrate, effusion, or pneumothorax is seen. The cardiac silhouette appears normal in size. The aorta may be mildly uncoiled, suggesting hypertension. The bones appear unremarkable. XR/XR chest 1V IMPRESSION: Findings as above. Electronically signed by: Cristiano Kim MD 02/27/2024 03:47 PM EDT
--- NOTE | ~2024-02-24 | XR_ITS ---
EXAMINATION: XR CHEST CLINICAL INFORMATION: Follow-up pneumonia COMPARISON: CT chest 02/27/2024. Chest radiograph 02/27/2024 TECHNIQUE: Frontal view of the chest was obtained. FINDINGS: Exam limited by portable technique. Again noted severe emphysematous changes. Streaky bibasilar opacities. No pleural effusions or pneumothorax. The cardiomediastinal silhouette is within normal limits. Aortic calcifications. No acute osseous abnormality. XR/XR chest 1V IMPRESSION: Severe emphysema. Streaky bibasilar opacities not significant changed from prior exam. Electronically signed by: Pankaj Torres MD 03/03/2024 03:41 PM EDT
--- NOTE | ~2024-02-24 | CT_ITS ---
EXAMINATION: CT CHEST WITHOUT CONTRAST CLINICAL INFORMATION: Worsening hypoxia. COMPARISON: No prior chest CT. Chest x-ray from earlier the same day. TECHNIQUE: Multidetector volumetric CT imaging of the chest was done. Axial MIP volume rendering provided. Sagittal and coronal reformatted images were obtained. This CT examination was performed using dose optimization techniques as appropriate, variously including the following: *Automated exposure control *Adjustment of mA and/or kV according to patient size (this includes techniques or standardized protocols for targeted exams where dose is matched to indication/reason for exam; i.e. extremities or head) *Use of iterative reconstruction technique DLP: 157 mGy-cm FINDINGS: LUNGS/PLEURA: Limited by motion. Severe emphysema. Debris within dependent lower lobe bronchi, right worse than left. Patchy bibasilar dependent airspace disease suggesting infiltrates and/or atelectasis, right worse than left. Suspect trace right pleural fluid. No pneumothorax. MEDIASTINUM: Heart normal in size. Mild decreased blood pool density suggesting anemia. No pericardial effusion. Suspect mild pericardial calcification on the right. Atherosclerotic aorta. CORONARY ARTERY CALCIFICATION: Present. AXILLA: No lymphadenopathy by size criteria. UPPER ABDOMEN: Approximately 2 cm, round, homogeneous, hypodense lesion at the cephalad aspect of the spleen (image 46, series 3). This appears smooth, homogeneously hypodense, demonstrating Hounsfield unit density of -13. In the absence of known or suspected malignancy elsewhere, the finding likely represents a benign entity, such as an hemangioma or cyst. OSSEOUS STRUCTURES: Decreased bone mineral density. CT/CT chest wo IV con IMPRESSION: Limited by motion. Severe emphysema. Debris within dependent lower lobe bronchi, right worse than left. Patchy bibasilar dependent airspace disease suggesting infiltrates and/or atelectasis, right worse than left. Cannot entirely exclude aspiration pneumonia. Suspect trace right pleural fluid. Additional findings, as above. Electronically signed by: Cristiano Kim MD 02/27/2024 04:44 PM EDT
--- NOTE | ~2024-02-24 | XR_ITS ---
EXAMINATION: XR CHEST CLINICAL INFORMATION: Edema and hypoxia COMPARISON: Chest radiograph 03/03/2024, CT chest 02/27/2024 TECHNIQUE: Frontal view of the chest was obtained. FINDINGS: Severe emphysematous changes are again seen. Heart size is normal. Bibasilar atelectasis/scarring is present. No acute consolidations or pleural effusions seen. XR/XR chest 1V IMPRESSION: Severe emphysema. No acute intrathoracic disease. Electronically signed by: Chris Rogel MD 03/05/2024 06:38 PM EDT RP
[2024-02-24 05:14] LABS: Basophils Percent Auto 0.2 % (0-2); Eosinophils Percent Auto 0.1 % (0-4); Hemoglobin 10.4 g/dl (12.0-16.0); Imm Gran Abs Auto 0.09 X10*3/uL (0.00-0.03); Imm Gran Pct Auto 0.5 % (0.0-0.4); Lymphocytes Absolute Auto 0.4 X10*3/uL (1.2-4.9); Lymphocytes Percent Auto 2.5 % (20-40); MANUAL DIFF FLAG SCAN; Mean Corpuscular HGB Conc 32.5 g/dl (31.0-35.0); Mean Corpuscular Hemoglobin 31.6 pg (27.0-33.0); Mean Corpuscular Volume 97.3 fL (80.0-98.0); Monocytes Absolute Auto 0.6 X10*3/uL (0.1-1.2); Monocytes Percent Auto 3.4 % (2-11); Neutrophils Percent Auto 93.3 % (45-73); Platelet Count 203 X10*3/uL (160-400); Red Blood Count 3.29 X10*6/uL (4.20-5.50); SCAN SMEAR FLAG 1; White Blood Count 17.1 X10*3/uL (4.8-10.8)
[2024-02-24 05:30] LABS: Alanine Aminotransferase 10 U/L (0-31); Albumin Level 4.1 g/dL (3.5-5.0); Alkaline Phosphatase 60 U/L (39-117); Anion Gap 12 (12-20); Aspartate Amino Transferase 16 U/L (5-31); Bilirubin Total 0.4 mg/dL (0.0-1.0); Blood Urea Nitrogen 20 mg/dL (9-16); Calcium 10.4 mg/dL (8.4-10.2); Carbon Dioxide 37 mmol/L (22-29); Chloride 88 mmol/L (96-108); Creatinine Clr Calc Pharmacy 32.5; Estimated Glomerular Filt Rate > 60; Glucose Random 125 mg/dL (60-115); Potassium 3.8 mmol/L (3.3-5.1); Sodium 133 mmol/L (135-145); Total Protein 7.3 g/dL (6.5-8.0)
[2024-02-24 05:33] LABS: SLIDE REVIEW VERIFIED; Troponin-I High Sensitivity 22.7 ng/L (<3.5-17.0)
[2024-02-24] MEDS: cefTRIAXone sodium 1 GM in 0.9 % Sodium Chloride 50 ML IV (06:33)
[2024-02-24 06:34] LABS: Lactic Acid 0.6 mmol/L (0.5-2.0)
[2024-02-24] MEDS: 0.9 % Sodium Chloride 1,000 ML 999 ML IV (06:36)
--- NOTE | 2024-02-24 06:54 | PC.NURSE ---
pt straight cath for urine sample. Pt tolerated well. 150 mL of clear yellow urine. sample collected and sent to lab.
--- NOTE | 2024-02-24 07:01 | ED.WEAKNESS ---
HPI - Weakness General Chief complaint: Weakness Stated complaint: weakness Time Seen by Provider: 02/24/24 06:32 Source: patient, family, EMS, RN notes reviewed and old records reviewed Mode of arrival: EMS History of Present Illness ED Provider: Roxana Chen PA-C HPI Narrative: 79-year-old female with a past medical history HTN, AFib, COPD on 2L NC at baseline, GERD, arthritis, presenting to ED via EMS complaining of generalized fatigue/weakness, cough, SOB x few days. History mostly obtained from daughter who also reports mild confusion early this AM, resolved at present. Patient also reports mild dysuria. Denies recent falls. Denies known fever, chills, abdominal pain, nausea/vomiting, pedal edema, sick contacts MD Complaint: generalized weakness Related Data Home Medications ?Medication ?Instructions ?Recorded ?Confirmed albuterol sulfate 2.5 mg/3 mL 1 vial inhalation Q6H PRN wheezing 12/18/20 02/24/24 (0.083 %) solution for nebulization dabigatran etexilate 150 mg 1 cap PO BID 12/18/20 02/24/24 capsule (Pradaxa) ipratropium 20 mcg-albuterol 100 1 puff PO QID 12/18/20 02/24/24 mcg/actuation mist for inhalation (Combivent Respimat) roflumilast 500 mcg tablet 500 mcg PO DAILY 12/18/20 02/24/24 (Daliresp) loratadine 10 mg tablet (Allergy 10 mg PO DAILY 10/27/22 02/24/24 Relief (loratadine)) amlodipine 5 mg tablet 5 mg PO DAILY 02/24/24 02/24/24 formoterol fumarate 20 mcg/2 mL 2 ml inhalation BID 02/24/24 02/24/24 solution for nebulization lansoprazole 30 mg capsule,delayed 30 mg PO DAILY@0630 02/24/24 02/24/24 release Previous Rx's ?Medication ?Instructions ?Recorded potassium chloride 20 mEq 20 meq PO DAILY 90 days #90 tabs 03/02/23 tablet,extended release mecobalamin (vitamin B12) 1,000 1,000 mcg PO DAILY 90 days #90 tabs 09/01/23 mcg chewable tablet metoprolol tartrate 25 mg tablet 25 mg PO BID 90 days #180 tabs 09/01/23 atorvastatin 10 mg tablet 10 mg PO DAILY 90 days #90 tabs 09/30/23 citalopram 20 mg tablet 20 mg PO DAILY 30 days #30 tabs 12/18/23 megestrol 20 mg tablet 10 mg (1/2 x 20 mg) PO BID 30 days 01/26/24 #30 tabs oxycodone-acetaminophen 5 mg-325 1 tab PO BID PRN pain 30 days #60 02/17/24 mg tablet (Percocet) tabs Allergies Allergy/AdvReac Type Severity Reaction Status Date / Time pantoprazole Allergy Intermediate mouth le Verified 02/24/24 04:34 Penicillins Allergy Intermediate Itching Verified 02/24/24 04:34 Review of Systems Review of Systems: Yes all other systems are reviewed and are negative Constitutional: Constitutional: Reports as per HPI Neurologic: Denies Abnormal speech present [facility] Past Medical History Attestation statement: The following information was validated with the patient. Source: old records reviewed Medical History COVID-19 vaccine administered Arthritis GERD (gastroesophageal reflux disease) Depression Oxygen dependent COPD (chronic obstructive pulmonary disease) Arrhythmia HTN (hypertension) Surgical History Hx of appendectomy H/O colonoscopy Social History Social History Housing: House Are you a primary home health care social worker to a significant other at home: No Do you presently have visiting nurse or other home services: No Alcohol intake: never Patient Tobacco Use Status: Former Tobacco user Tobacco use type: Cigarette Smoked in Last 30 Days: No e-Cigarette/Vaping Use: Never Used Second Hand Smoke Exposure: No Use of substances other than those prescribed or required for medical reasons: No Advance Directives: Yes Advance Directives Information Provided: Yes Advance Directives on File: No Do you have a plan to hurt others: No Plan Nutrition Risks: No Nutritional Risk Current occupational status: retired Current occupational exposures/hazards: No Hearing needs: No Physical Exam Vital Signs: Vital Signs: Last Vital Signs Temp 98.8 F 02/24/24 12:00 Pulse 82 02/24/24 13:14 Resp 28 H 02/24/24 13:14 BP 132/53 L 02/24/24 13:14 Pulse Ox 98 02/24/24 13:14 O2 Del Method Nasal Cannula 02/24/24 13:14 O2 Flow Rate 2 02/24/24 13:14 Oxygen Flow Rate 2 02/24/24 04:27 BMI result Body Mass Index 16.9 Const: General: cooperative, no acute distress, alert and awake Orientation/consciousness: patient oriented x3 Limitations: no limitations HEENT: Head: Yes normal to inspection and Yes atraumatic Ears: hearing grossly normal bilaterally General nose exam: Normal external nose present Face and sinus: Yes normal facial exam Eyes: General: appearance normal, both eyes and all related structures EOM: EOMs intact bilaterally Neck: Neck: Yes normal visual inspection and Yes no meningeal signs Resp: Effort & Inspection: normal respiratory effort and no respiratory distress Auscultation: wheezes expiratory wheezes and lower bilaterally and diminished lung sounds diffuse Cardio: Rate: regular rate Heart sounds: S1 normal heart sound present and S2 normal heart sound present GI: Inspection: Yes normal to inspection Palpation (GI): Soft to palpation, nontender, no guarding and not rigid : General: Yes no CVA tenderness Back/Spine/Pelvis: Back: no CVA tenderness Skin: Rashes: no rashes Wounds: no wounds Neuro: General: patient oriented x3, tone normal, moves all extremities, no meningeal signs, no focal motor deficits and CN's II-XI intact bilaterally Cranial nerves: Yes CN's II-XII intact bilaterally and Yes Bilaterally intact EOM present Cognition (Neuro): normal cognition Speech: No Abnormal speech present Motor exam (neuro): 5/5 motor strength present throughout Extrem: General: Yes normal to inspection and Yes no pedal edema Course Course Course Narrative: -leukocytosis of 17.1. H&H at patient's baseline. Initial troponin 22.7 > will obtain 3 hour repeat. -Lactic acid WNL -UA not infected XR chest 1V IMPRESSION: No acute cardiopulmonary disease. -patient with episode of tachycardia, tachypnea, hypertension and hypoxia after DuoNeb/being laid flat > BiPAP applied. Medications Administered Generic Name Dose Route Start Last Admin Trade Name Freq PRN Reason Stop Dose Admin Loratadine 10 mg 02/24/24 12:30 02/24/24 13:17 Loratadine 10 Mg Tablet PO Not Given DAILY [place] Discontinued Medications Generic Name Dose Route Start Last Admin Trade Name Fanta PRN Reason Stop Dose Admin Acetaminophen 650 mg 02/24/24 08:59 02/24/24 09:18 Acetaminophen 325 Mg Tablet PO 02/24/24 09:00 650 mg ONCE ONE Administration Albuterol/Ipratropium 3 ml 02/24/24 07:13 02/24/24 07:26 Albuterol/Iprat 2.5/0.5mg 3 Ml Ampul.Neb INHALE 02/24/24 07:14 3 ml ONCE ONE Administration Furosemide 20 mg 02/24/24 12:22 02/24/24 13:16 Furosemide 20 Mg/2 Ml Vial IVPUSH 02/24/24 12:23 20 mg ONCE ONE Administration Protocol Hydroxyzine HCl 25 mg 02/24/24 11:07 02/24/24 11:32 Hydroxyzine Hcl 25 Mg Tablet PO 02/24/24 11:08 25 mg ONCE ONE Administration Ceftriaxone Sodium 1 gm/ 50 mls @ 100 mls/hr 02/24/24 06:23 02/24/24 07:44 Sodium Chloride IV 02/24/24 06:52 Infused ONCE ONE Infusion Sodium Chloride 1,000 mls @ 999 mls/hr 02/24/24 06:23 02/24/24 07:44 Ns IV 02/24/24 07:23 Infused .Q1H1M ONE Infusion Methylprednisolone Sodium Succinate 60 mg 02/24/24 10:21 02/24/24 10:55 Methylprednisolone Sod Succ 125 Mg/2 Ml Vial IVPUSH 02/24/24 10:22 60 mg ONCE ONE Administration Medical Decision Making Medical Decision Making MDM Narrative: 79-year-old female with a past medical history HTN, AFib, COPD on 2L NC at baseline, GERD, arthritis, presenting to ED via EMS complaining of generalized fatigue/weakness, cough, SOB x few days. On exam satting 97% on baseline 2L NC, A&Ox3, no confusion at present, talking complete sentences, diminished lung sounds throughout with bibasilar wheeze, abdomen soft/nontender. No pitting edema. Concern for viral vs pneumonia vs COPD exacerbation vs UTI vs encephalopathy. Low suspicion for CVA/TIA. Low suspicion for severe sepsis Plan: EKG, labs, UA, viral testing, CXR, ED bronchodilator protocol, anticipate admission Please refer to course for remaining clinical decision making, interpretation of labs/imaging results, and discussions with consultants and/or family members. Differential Diagnosis Differential Diagnoses: The differential diagnosis associated with the presentation includes As above Admission/Observation Consideration of admission/observation: Escalation of care including admission/observation considered Consult Healthcare Provider Management of the patient was discussed with: Hospitalist Lab Data MDM Lab Attestation statement: I reviewed the patient's lab results. 02/24/24 05:08 02/24/24 05:08 Labs: Lab Results 02/24/24 02/24/24 02/24/24 Range/Units 05:08 06:15 06:57 WBC 17.1 H (4.8-10.8) X10*3/uL RBC 3.29 L (4.20-5.50) X10*6/uL Hgb 10.4 L (12.0-16.0) g/dl Hct 32.0 L (37.0-47.0) % MCV 97.3 (80.0-98.0) fL MCH 31.6 (27.0-33.0) pg MCHC 32.5 (31.0-35.0) g/dl RDW 13.0 (11.0-16.0) % Plt Count 203 (160-400) X10*3/uL MPV 9.0 L (9.4-12.3) fL Immature Gran % (Auto) 0.5 H (0.0-0.4) % Neut % (Auto) 93.3 H (45-73) % Lymph % (Auto) 2.5 L (20-40) % [place] % (Auto) 3.4 (2-11) % Eos % (Auto) 0.1 (0-4) % Baso % (Auto) 0.2 (0-2) % Lymph # (Auto) 0.4 L (1.2-4.9) X10*3/uL [place] # (Auto) 0.6 (0.1-1.2) X10*3/uL Eos # (Auto) 0.0 (0.0-0.4) X10*3/uL Baso # (Auto) 0.0 (0.0-0.2) X10*3/uL Abs Immat Gran (auto) 0.09 H (0.00-0.03) X10*3/uL Absolute Neuts (auto) 16.0 H (2.0-8.3) x10*3/uL Absolute Nucleated RBC 0.000 (0.0-0.012) X10*3/uL Nucleated RBC % (auto) 0.0 (0.0-0.2) /100WBC Smear Tech's Comments VERIFIED VBG pH (7.32-7.43) VBG pCO2 mmHg VBG pO2 mmHg VBG HCO3 (22-26) mmol/L VBG O2 Saturation % VBG Base Excess mmol/L Sodium 133 L (135-145) mmol/L Potassium 3.8 (3.3-5.1) mmol/L Chloride 88 L (96-108) mmol/L Carbon Dioxide 37 H (22-29) mmol/L Anion Gap 12 (12-20) BUN 20 H (9-16) mg/dL Creatinine 0.80 (0.5-1.4) mg/dL Estim Creat Clear Calc 32.5 Estimated GFR > 60 Random Glucose 125 H (60-115) mg/dL Lactic Acid 0.6 (0.5-2.0) mmol/L Calcium 10.4 H (8.4-10.2) mg/dL Magnesium 2.1 (1.6-2.6) mg/dL Total Bilirubin 0.4 (0.0-1.0) mg/dL AST 16 (5-31) U/L ALT 10 (0-31) U/L Alkaline Phosphatase 60 (39-117) U/L Ammonia (13-55) umol/L Troponin I High Sens 22.7 H (<3.5-17.0) ng/L B-Natriuretic Peptide 220 H (<100) pg/mL Total Protein 7.3 (6.5-8.0) g/dL Albumin 4.1 (3.5-5.0) g/dL Urine Color Yellow Urine Appearance Clear Urine pH 6.5 (5.0-9.0) Ur Specific [place] 1.015 (1.005-1.025) Urine Protein 300 (3+) H (Neg-Trace) mg/dL Urine Glucose (UA) Negative (Negative) mg/dL Urine Ketones Trace (Negative) mg/dL Urine Blood Moderate (2+) H (Negative) Urine Nitrite Negative (Negative) Ur Leukocyte Esterase Negative (Negative) Urine RBC 11-20 H (0-2) /HPF Urine WBC 0-5 (0-5) /HPF Ur Squamous Epith Cells 0-2 (0-2) /HPF Urine Bacteria None Seen (None Seen) Hyaline Casts 0-2 (0-2) /LPF Influenza Type A (PCR) NEGATIVE (Negative) Influenza Type B (PCR) NEGATIVE (Negative) RSV RNA Qual (PCR) NEGATIVE (Negative) SARS-CoV-2 RNA (RT-PCR) NEGATIVE (Negative) 02/24/24 02/24/24 Range/Units 07:49 07:55 WBC (4.8-10.8) X10*3/uL RBC (4.20-5.50) X10*6/uL Hgb (12.0-16.0) g/dl Hct (37.0-47.0) % MCV (80.0-98.0) fL MCH (27.0-33.0) pg MCHC (31.0-35.0) g/dl RDW (11.0-16.0) % Plt Count (160-400) X10*3/uL MPV (9.4-12.3) fL Immature Gran % (Auto) (0.0-0.4) % Neut % (Auto) (45-73) % Lymph % (Auto) (20-40) % [place] % (Auto) (2-11) % Eos % (Auto) (0-4) % Baso % (Auto) (0-2) % Lymph # (Auto) (1.2-4.9) X10*3/uL [place] # (Auto) (0.1-1.2) X10*3/uL Eos # (Auto) (0.0-0.4) X10*3/uL Baso # (Auto) (0.0-0.2) X10*3/uL Abs Immat Gran (auto) (0.00-0.03) X10*3/uL Absolute Neuts (auto) (2.0-8.3) x10*3/uL Absolute Nucleated RBC (0.0-0.012) X10*3/uL Nucleated RBC % (auto) (0.0-0.2) /100WBC Smear Tech's Comments VBG pH 7.29 L (7.32-7.43) VBG pCO2 68 mmHg VBG pO2 83 mmHg VBG HCO3 33 H (22-26) mmol/L VBG O2 Saturation 96.0 % VBG Base Excess 4.5 mmol/L Sodium (135-145) mmol/L Potassium (3.3-5.1) mmol/L Chloride (96-108) mmol/L Carbon Dioxide (22-29) mmol/L Anion Gap (12-20) BUN (9-16) mg/dL Creatinine (0.5-1.4) mg/dL Estim Creat Clear Calc Estimated GFR Random Glucose (60-115) mg/dL Lactic Acid (0.5-2.0) mmol/L Calcium (8.4-10.2) mg/dL Magnesium (1.6-2.6) mg/dL Total Bilirubin (0.0-1.0) mg/dL AST (5-31) U/L ALT (0-31) U/L Alkaline Phosphatase (39-117) U/L Ammonia 45 (13-55) umol/L Troponin I High Sens 21.6 H (<3.5-17.0) ng/L B-Natriuretic Peptide (<100) pg/mL Total Protein (6.5-8.0) g/dL Albumin (3.5-5.0) g/dL Urine Color Urine Appearance Urine pH (5.0-9.0) Ur Specific [place] (1.005-1.025) Urine Protein (Neg-Trace) mg/dL Urine Glucose (UA) (Negative) mg/dL Urine Ketones (Negative) mg/dL Urine Blood (Negative) Urine Nitrite (Negative) Ur Leukocyte Esterase (Negative) Urine RBC (0-2) /HPF Urine WBC (0-5) /HPF Ur Squamous Epith Cells (0-2) /HPF Urine Bacteria (None Seen) Hyaline Casts (0-2) /LPF Influenza Type A (PCR) (Negative) Influenza Type B (PCR) (Negative) RSV RNA Qual (PCR) (Negative) SARS-CoV-2 RNA (RT-PCR) (Negative) Independent Interpretation I performed an independent interpretation of an: EKG (My interpretation EKG normal sinus rhythm sinus arrhythmia rate of 79. Pr interval 166. QTC 433. No STEMI ) and Plain X-Ray Radiology Impression Discussion of test interpretation with radiology: I have reviewed the radiologist's reading. Independent Historian Clinical information obtained from an independent historian. History obtained from or confirmed by: EMS and Other (Daughter) External Record Review External record reviewed: Inpatient record, Office record, Outpatient record, Prior outpatient labs, Prior outpatient radiology, Primary care record and Outside ED record Tests considered The following testing was considered but not selected: As above Prescription Management I considered prescription management with: Antibiotic Chronic Conditions Patient?s care impacted by: Hypertension Critical Care Time Critical Care Time Critical Care Time: Yes Total Critical Care Time: 45 Attestation: I have personally provided critical care time exclusive of time spent on separately billable procedures. Time includes review of lab data, radiology results, discussion with consultants, and monitoring for potential decompensation. Intervention performed as documented. Discharge Plan Discharge Clinical Impression: COPD exacerbation Patient Disposition: Admitted As Inpatient
[2024-02-24 07:05] LABS: Appearance Urine Clear; Color Urine Yellow; Glucose Urine UA Negative (Negative); Leukocyte Esterase Urine Negative (Negative); Nitrite Urine Negative (Negative); PH 6.5 (5.0-9.0); Specific Gravity - Urine 1.015 (1.005-1.025); UMIC TRIGGER UACC YES; Urine Blood Moderate (2+) (Negative); Urine Ketones Trace mg/dL (Negative); Urine Protein 300 (3+) mg/dL (Neg-Trace)
[2024-02-24 07:05] LABS: Influenza A PCR NEGATIVE (Negative); Influenza B PCR NEGATIVE (Negative); Resp Syncy Virus RNA Qual PCR NEGATIVE (Negative); SARS COV2 PCR INHOUSE NEGATIVE (Negative)
[2024-02-24 07:10] LABS: Bacteria Urine None Seen (None Seen); Hyaline Casts Urine 0-2 /LPF (0-2); Squamous Epithelial Cell Urine 0-2 /HPF (0-2); WBC Urine 0-5 /HPF (0-5)
[2024-02-24 07:15] LABS: Magnesium 2.1 mg/dL (1.6-2.6)
[2024-02-24] MEDS: Albuterol/Iprat 2.5/0.5MG 3 ML AMPUL.NEB INHALE (07:26)
--- NOTE | 2024-02-24 07:53 | PC.NURSE ---
Patient yelled to be sat up and that she wanted to be at end of bed. Pt was grabbing railings and behavior was agitated and restless and abnormal and disoriented. pt was receiving duoneb treatment at time. oxygen saturation 83% on treatment. RT and MD called to bedside. Pt repositined to 90deg and bipap applied. Pt prior to application started to transition to baseline mentation and was re-oriented to place and time. stat VBG drawn. Will continue to monitor.
--- NOTE | 2024-02-24 07:54 | MHC.EDTECH ---
blood raymond @7:50 , and send to the lab, patient on IPAP now her Oxygen getting better 95 rate 8 and 35%O2, Patient rest comfortably in the bed, call seay within reach.
[2024-02-24 07:56] LABS: Venous Blood Gas Refer to POC result
[2024-02-24 07:59] LABS: VBG Base Excess 4.5 mmol/L; VBG HCO3 33 mmol/L (22-26); VBG pCO2 68 mmHg; VBG pH 7.29 (7.32-7.43); VBG pO2 83 mmHg
[2024-02-24 08:01] LABS: Ammonia 45 umol/L (13-55)
[2024-02-24 08:13] LABS: B Type Natriuretic Peptide 220 pg/mL (<100)
[2024-02-24 08:16] LABS: Troponin-I High Sensitivity 21.6 ng/L (<3.5-17.0)
[2024-02-24] MEDS: Acetaminophen 325 MG TABLET 650 MG PO (09:18)
--- NOTE | 2024-02-24 10:31 | MHC.EDTECH ---
Hourly vitals was completed, patient rest quietly and call seay within Pt reach
[2024-02-24] MEDS: methylPREDNISolone Sod Succ 125 MG/2 ML VIAL 60 MG IVPUSH (10:55)
--- NOTE | 2024-02-24 11:28 | P.HPHOSP_ITS ---
History of Present Illness Date of Service: 02/24/24 Attending physician on admission: Marianela Boone Chief Complaint: SOB Pt is an 79-year-old female with a PMH significant for?paroxysmal AFib on Pradaxa, HTN, HLD, COPD on chronic 2L NC, GERD, chronic lower back pain, and anxiety/depression who presents to the ED from home with increased SOB, lethargy, and confusion since this morning. Patient is alert and oriented x3 though overall a rather poor and vague historian. HPI is supplemented by family who was at bedside. Patient reports increased SOB, weakness, occasional cough, and chills for the past 2-3 weeks. Her son has been living with for the past month to help out around the house and with caregiving. Patient has been sleeping in the living room on the couch lately, and this morning at 02:00 son found her confused, lethargic, and unable to stand or ambulate. Daughter notes patient has been declining for the past few months with decreased appetite and increased weight loss. Quit smoking 12 years ago after smoking 1-2 packs daily for many years. This is patient's 1st admission to [facility], but reports multiple previous hospitalizations for COPD exacerbations at [facility] in [place]. Patient denies chest pain/pressure, palpitations. Denies nausea, vomiting, abdominal pain. Currently no dysuria. Of note, while in the ED patient was lying flat after DuoNeb treatment when she suddenly became tachycardic up to the 140s, tachypneic into the 30s, and hypoxic into the high 70s. Patient was placed on BiPAP for 45 minutes with good response out of concern for flash pulmonary edema. Repeat chest x-ray was negative. In the ED pt was tachycardic up to 142, tachypneic up to 38, hypertensive up to 174/85, hypoxic as low as 79% on home 2L NC, and mild fever 100.3. Labs were significant for leukocytosis 17 point, stable normocytic anemia of 10.4/32.0, sodium 133, chloride 88, bicarb 37, initial troponin 22.7 with repeat 21.6, and BNP mildly elevated at 220. Lactic acid WNL at 0.6. Hepatic function and ammonia WNL. VBG pH 7.29 with bicarb 33 and pCO2 68. UA negative for UTI. Tested negative for flu, COVID, RSV. Initial CXR showed no acute cardiopulmonary disease, with repeat unchanged. EKG demonstrated normal sinus rhythm with sinus arrhythmia, no evidence of significant ST elevations or depressions. Pt was treated with IVF, hydroxyzine, DuoNebs, Solu-Medrol, and ceftriaxone. Pt will be admitted to the hospital for treatment and further evaluation of acute on chronic hypoxemic and hypercarbic respiratory failure in the setting of acute COPD exacerbation. Review of Systems 2 Review of Systems: Increased SOB Weakness, difficulty ambulating Contusion Occasional cough Chills Denies chest pain/pressure, palpitations No abdominal pain PMFSH Medical History COVID-19 vaccine administered Arthritis GERD (gastroesophageal reflux disease) Depression Oxygen dependent COPD (chronic obstructive pulmonary disease) Arrhythmia HTN (hypertension) Surgical History Hx of appendectomy H/O colonoscopy Social History Housing: House Are you a primary manager of care to a significant other at home: No Do you presently have visiting nurse or other home services: No Alcohol intake: never Patient Tobacco Use Status: Former Tobacco user Tobacco use type: Cigarette Smoked in Last 30 Days: No e-Cigarette/Vaping Use: Never Used Second Hand Smoke Exposure: No Use of substances other than those prescribed or required for medical reasons: No Advance Directives: Yes Advance Directives Information Provided: Yes Advance Directives on File: No Do you have a plan to hurt others: No Plan Current occupational status: retired Current occupational exposures/hazards: No Hearing needs: No Meds Allergies Allergy/AdvReac Type Severity Reaction Status Date / Time pantoprazole Allergy Intermediate mouth le Verified 02/24/24 04:34 Penicillins Allergy Intermediate Itching Verified 02/24/24 04:34 Home Medications ?Medication ?Instructions ?Recorded ?Confirmed ?Last Taken ?Type albuterol sulfate 2.5 mg/3 mL 1 vial inhalation Q6H PRN wheezing 12/18/20 01/03/24 Unknown History (0.083 %) solution for nebulization dabigatran etexilate 150 mg 1 cap PO BID 12/18/20 01/03/24 Unknown History capsule (Pradaxa) ipratropium 20 mcg-albuterol 100 1 puff PO QID 12/18/20 01/03/24 Unknown History mcg/actuation mist for inhalation (Combivent Respimat) roflumilast 500 mcg tablet 1 tab PO DAILY 12/18/20 01/03/24 Unknown History (Daliresp) loratadine 10 mg tablet (Allergy 10 mg PO DAILY 10/27/22 01/03/24 Unknown History Relief (loratadine)) amlodipine 5 mg tablet 5 mg PO DAILY 02/24/24 Unknown History formoterol fumarate 20 mcg/2 mL inhalation 02/24/24 Unknown History solution for nebulization Physical Exam 2 Vital Signs and Narrative: Vital Signs: Last Vital Signs Temp 98.9 F 02/24/24 10:28 Pulse 87 02/24/24 10:28 Resp 17 02/24/24 10:28 BP 115/53 L 02/24/24 10:28 Pulse Ox 98 02/24/24 10:28 O2 Del Method Nasal Cannula 02/24/24 10:28 O2 Flow Rate 3 02/24/24 10:28 Oxygen Flow Rate 2 02/24/24 04:27 BMI result Body Mass Index 16.9 Constitutional: Alert, frail-looking, in no acute distress. Mental Status: Oriented to person, place and time. Eyes: Pupils are equal, round, and reactive to light. Ear, Nose, and Throat: Oropharynx clear, mucous membranes moist. Ears and nose without deformities. Trachea midline. Respiratory: Lungs clear, but severely diminished bilaterally. No wheezing, rales, or rhonchi. Cardiovascular: S1, S2 regular rhythm though tachycardic. Gastrointestinal: Abdomen soft, non-tender, non-distended. Normal bowel sounds. Neurologic: Cranial nerves II-XII are grossly intact bilaterally. No focal neurological deficits. Moves all extremities spontaneously. Skin: Warm, dry. Extremities: No edema. Psychiatric: Normal mood and affect. Results Labs 02/24/24 05:08 02/24/24 05:08 Labs: Laboratory Results - last 24 hr 02/24/24 02/24/24 02/24/24 05:08 06:15 06:57 MCV 97.3 MCH 31.6 MCHC 32.5 RDW 13.0 Plt Count 203 MPV 9.0 L Immature Gran % (Auto) 0.5 H Neut % (Auto) 93.3 H Lymph % (Auto) 2.5 L [place] % (Auto) 3.4 Eos % (Auto) 0.1 Baso % (Auto) 0.2 Lymph # (Auto) 0.4 L [place] # (Auto) 0.6 Eos # (Auto) 0.0 Baso # (Auto) 0.0 Abs Immat Gran (auto) 0.09 H Absolute Neuts (auto) 16.0 H Absolute Nucleated RBC 0.000 Nucleated RBC % (auto) 0.0 Smear Tech's Comments VERIFIED VBG pH VBG pCO2 VBG pO2 VBG HCO3 VBG O2 Saturation VBG Base Excess Anion Gap 12 Estim Creat Clear Calc 32.5 Estimated GFR > 60 Random Glucose 125 H Lactic Acid 0.6 Calcium 10.4 H Magnesium 2.1 Total Bilirubin 0.4 AST 16 ALT 10 Alkaline Phosphatase 60 Ammonia Troponin I High Sens 22.7 H B-Natriuretic Peptide 220 H Total Protein 7.3 Albumin 4.1 Urine Color Yellow Urine Appearance Clear Urine pH 6.5 Ur Specific [place] 1.015 Urine Protein 300 (3+) H Urine Glucose (UA) Negative Urine Ketones Trace Urine Blood Moderate (2+) H Urine Nitrite Negative Ur Leukocyte Esterase Negative Urine RBC 11-20 H Urine WBC 0-5 Ur Squamous Epith Cells 0-2 Urine Bacteria None Seen Hyaline Casts 0-2 Influenza Type A (PCR) NEGATIVE Influenza Type B (PCR) NEGATIVE RSV RNA Qual (PCR) NEGATIVE SARS-CoV-2 RNA (RT-PCR) NEGATIVE 02/24/24 02/24/24 07:49 07:55 MCV MCH MCHC RDW Plt Count MPV Immature Gran % (Auto) Neut % (Auto) Lymph % (Auto) [place] % (Auto) Eos % (Auto) Baso % (Auto) Lymph # (Auto) [place] # (Auto) Eos # (Auto) Baso # (Auto) Abs Immat Gran (auto) Absolute Neuts (auto) Absolute Nucleated RBC Nucleated RBC % (auto) Smear Tech's Comments VBG pH 7.29 L VBG pCO2 68 VBG pO2 83 VBG HCO3 33 H VBG O2 Saturation 96.0 VBG Base Excess 4.5 Anion Gap Estim Creat Clear Calc Estimated GFR Random Glucose Lactic Acid Calcium Magnesium Total Bilirubin AST ALT Alkaline Phosphatase Ammonia 45 Troponin I High Sens 21.6 H B-Natriuretic Peptide Total Protein Albumin Urine Color Urine Appearance Urine pH Ur Specific [place] Urine Protein Urine Glucose (UA) Urine Ketones Urine Blood Urine Nitrite Ur Leukocyte Esterase Urine RBC Urine WBC Ur Squamous Epith Cells Urine Bacteria Hyaline Casts Influenza Type A (PCR) Influenza Type B (PCR) RSV RNA Qual (PCR) SARS-CoV-2 RNA (RT-PCR) Imaging Radiologist's Impressions: Impressions Chest X-Ray 02/24/24 04:45 IMPRESSION: No acute cardiopulmonary disease. Electronically signed by: Zoltan Brady MD 02/24/2024 05:02 AM EDT RP Chest X-Ray 02/24/24 07:55 IMPRESSION: Findings as above. Electronically signed by: Cristiano Kim MD 02/24/2024 11:09 AM EDT RP Assessment and Plan (1) COPD exacerbation: Status: Acute (2) Acute on chronic hypoxic respiratory failure: Status: Acute Plan Pt is an 79-year-old female with a PMH significant for?paroxysmal AFib on Pradaxa, HTN, HLD, COPD on chronic 2L NC, GERD, chronic lower back pain, and anxiety/depression who presents to the ED from home with increased SOB, lethargy, and confusion since this morning. Pt will be admitted to the hospital for treatment and further evaluation of acute on chronic hypoxemic and hypercarbic respiratory failure in the setting of acute COPD exacerbation. Acute on chronic hypoxemic and hypercarbic respiratory failure in the setting COPD exacerbation Patient with increased SOB, generalized weakness, difficulty ambulating occasional cough, desatting into 70s on home 2L O2 No sepsis: Tachycardia secondary to albuterol use, leukocytosis reactionary; lactic acid WNL Patient given IVF and started on broad-spectrum antibiotics in the ED Little concern for pneumonia: CXR clear, no fever or significant productive cough Will treat with DuoNebs, Solu-Medrol, guaifenesin Will also treat with ceftriaxone for pleiotropic effects, started 02/24/2024 Titrate supplemental O2 to patient's baseline 2 L NC with goal of O2 88-90% Repeat VBG Generalized weakness Worsening the past month Unable to ambulate at home this morning No reported falls PT evaluation Question of acute encephalopathy Family reports patient was confused earlier this morning Has been AOx3 while in the ED, currently appears at baseline Monitor mentation Elevated troponins Initial troponin 22.7 with repeat flat at 21.6 Pt asymptomatic, EKG without significant ischemia Likely type 2 in the setting of increased demand Monitor on telemetry Paroxysmal AFib Continue Pradaxa, metoprolol HTN Continue amlodipine HLD Continue statin Chronic lower back pain Continue home analgesics Mood disorder Continue home mood stabilizers Full Code Attending:?Dr. Boone DVT Prophylaxis: On Pradaxa Pt will require a hospitalization of at least two nights for treatment of?acute on chronic hypoxemic and hypercarbic respiratory failure in setting of acute COPD exacerbation requiring administration of IV steroids, breathing treatments, and increased oxygen demand. Quality Stroke Does the patient have a stroke diagnosis?: No VTE Prior VTE?: No VTE Risk Level:: Medical - moderate - high VTE Device Contraindication: Treatment Not Indicated VTE Drug Contraindication: N/A - Med Ordered
[2024-02-24] MEDS: hydrOXYzine HCL 25 MG TABLET PO (11:32)
[2024-02-24 12:43] LABS: VBG Base Excess 11.5 mmol/L; VBG HCO3 38 mmol/L (22-26); VBG pCO2 64 mmHg; VBG pH 7.38 (7.32-7.43); VBG pO2 69 mmHg
[2024-02-24 12:43] LABS: Venous Blood Gas Refer to POC result
[2024-02-24] MEDS: Furosemide 20 MG/2 ML VIAL IVPUSH (13:16)
[2024-02-24 13:52] LABS: Adenovirus PCR Not Detected (Not Detect.); Bordetella parapertussis PCR Not Detected (Not Detect.); Bordetella pertussis PCR Not Detected (Not Detect.); Chlamydia pneumoniae PCR Not Detected (Not Detect.); Coronavirus 229E PCR Not Detected (Not Detect.); Coronavirus HKU1 PCR Not Detected (Not Detect.); Coronavirus NL63 PCR Not Detected (Not Detect.); Coronavirus OC43 PCR Not Detected (Not Detect.); Human metapneumovirus PCR Not Detected (Not Detect.); Influenza A PCR Not Detected (Not Detect.); Influenza B PCR Not Detected (Not Detect.); Mycoplasma pneumoniae PCR Not Detected (Not Detect.); Parainfluenza 1 PCR Not Detected (Not Detect.); Parainfluenza 2 PCR Not Detected (Not Detect.); Parainfluenza 3 PCR Not Detected (Not Detect.); Parainfluenza 4 PCR Not Detected (Not Detect.); RSV PCR Not Detected (Not Detect.); Rhino/Enterovirus PCR Not Detected (Not Detect.)
[2024-02-24 14:06] LABS: SARS-CoV-2 PCR Not Detected (Not Detect.)
--- NOTE | 2024-02-24 14:16 | PHA.MEDREC ---
Pharmacy Consult ? Medication Reconciliation Pharmacy has completed the medication reconciliation. Spoke to daughter at bedside to confirm med list. Daughter could confirm most of patients medication. Daughter wasn't sure if patient takes Lansoprazole 30 mg last fill date was 01/13/24 for 90 days , Megestrol 20 mg last fill date was 12/06/23 for 90 days, Potassium chloride 20 mEq 20 mg last fill date was12/16/23 for 90 days, and Daliresp 500 mg last fill date was 10/12/2023 for 90 days. left on med list because they are recant claims for them. Called patient PCP to verify meds , however didn't get and fax. will have night med rec tech update if we receive any more information.
--- NOTE | 2024-02-24 14:22 | PHA.MEDREC ---
Addendum entered by Kaitlyn Triplett RPh 02/24/24 15:03: Med rec was reviewed by [facility]. Dr. Red was notified that daughter couldn't confirm lansoprazole, megestrol, potassium and daliresp but they were left in med list because there are recent pharmacy claims for them. Original Note: Pharmacy Consult ? Medication Reconciliation Pharmacy has completed the medication reconciliation. Spoke to daughter at bedside to confirm med list. Daughter could confirm most of patients medication. Daughter wasn't sure if patient takes Lansoprazole 30 mg last fill date was 01/13/24 for 90 days , Megestrol 20 mg last fill date was 12/06/23 for 90 days, Potassium chloride 20 mEq 20 mg last fill date was12/16/23 for 90 days, and Daliresp 500 mg last fill date was 10/12/2023 for 90 days. left on med list because they are recant claims for them. Called patient PCP Dr. Elpidio Alba ([phone]) to verify meds, however didn't get a response. will have night med rec tech update if we receive any more information.
--- NOTE | 2024-02-24 16:16 | ECG_ITS ---
Test Reason : RAPID HEART BEAT Blood Pressure : / mmHG Vent. Rate : 129 BPM Atrial Rate : 394 BPM P-R Int : 000 ms QRS Dur : 076 ms QT Int : 296 ms P-R-T Axes : 137 063 073 degrees QTc Int : 433 ms Atrial flutter with variable A-V block with premature ventricular or aberrantly conducted complexes Abnormal ECG When compared with ECG of 24-FEB-2024 04:46, Atrial flutter has replaced Sinus rhythm Vent. rate has increased BY 50 BPM Referred By: Awilda Bergman Electronically Signed By:LISET MCCANN
[2024-02-24] MEDS: 0.9 % Sodium Chloride Flush 3 ML SYRINGE IVFLUSH ×2 (17:19→21:58)
[2024-02-24] MEDS: Metoprolol Tartrate 5 MG/5 ML VIAL IVPUSH (17:20)
[2024-02-24] MEDS: amLODIPine Besylate 5 MG TABLET PO (18:27)
[2024-02-24] MEDS: Atorvastatin Calcium 10 MG TABLET PO (18:28)
[2024-02-24] MEDS: Potassium Chloride ER 20 MEQ TAB.ER.PRT PO (18:28)
[2024-02-24] MEDS: Roflumilast 500 MCG TABLET PO (19:08)
--- NOTE | 2024-02-24 19:11 | PC.NURSE ---
this rn assumed care of pt, pt a&ox4. respirations even and unlabored, pt on 2L nasal cannula sating 100%, pt tachycardic at 100-112bpm. pt medicated per aug, tolerated whole with water. pt noted to be hypertensive, Kailyn SWEENEY aware.
[2024-02-24] MEDS: Labetalol HCL 100 MG/20 ML VIAL IVPUSH (19:33)
[2024-02-24] MEDS: Megestrol Acetate 20 MG TABLET 10 MG PO (21:57)
[2024-02-24] MEDS: Metoprolol Tartrate 25 MG TABLET PO (21:58)
[2024-02-24] MEDS: Dabigatran Etexilate Mesylate 150 MG CAPSULE PO (21:58)
[2024-02-24] MEDS: methylPREDNISolone Sod Succ 40 MG/ML VIAL IVPUSH (21:58)
[2024-02-25] VITALS (14 sets, daily range): BP systolic 115–173; BP diastolic 53–93; PULSE 76–110; RESP 16–28; TEMP 36.1–37.1; O2SAT 94–100; BMI 16.9
[2024-02-25] MEDS: Metoprolol Tartrate 25 MG TABLET PO ×3 (02:13→21:18)
[2024-02-25] MEDS: Magnesium Sulfate/H2O 2 GM/50 ML PIGGYBACK IV (02:13)
[2024-02-25 05:54] LABS: Hematocrit 31.4 % (37.0-47.0); Hemoglobin 9.8 g/dl (12.0-16.0); Mean Corpuscular HGB Conc 31.2 g/dl (31.0-35.0); Mean Corpuscular Hemoglobin 30.8 pg (27.0-33.0); Mean Corpuscular Volume 98.7 fL (80.0-98.0); Mean Platelet Volume 9.5 fL (9.4-12.3); Platelet Count 208 X10*3/uL (160-400); Red Blood Count 3.18 X10*6/uL (4.20-5.50); Red Cell Distribution Width 12.8 % (11.0-16.0); White Blood Count 12.7 X10*3/uL (4.8-10.8)
[2024-02-25] MEDS: Omeprazole 20 MG CAPSULE.DR PO (06:06)
[2024-02-25] MEDS: cefTRIAXone sodium 1 GM in 0.9 % Sodium Chloride 50 ML IV (06:06)
[2024-02-25 06:11] LABS: Anion Gap 13 (12-20); Blood Urea Nitrogen 18 mg/dL (9-16); Calcium 9.6 mg/dL (8.4-10.2); Carbon Dioxide 37 mmol/L (22-29); Chloride 91 mmol/L (96-108); Creatinine Clr Calc Pharmacy 35.1; Estimated Glomerular Filt Rate > 60; Glucose Random 113 mg/dL (60-115); Potassium 3.6 mmol/L (3.3-5.1); Sodium 137 mmol/L (135-145)
--- NOTE | 2024-02-25 07:00 | CA_ITS ---
Transthoracic Echocardiogram Patient (Last, First, Middle): Elzbieta Goddard, Gender: Female Date of : 1945 Age: 79 Procedure Date: 02/25/2024 Procedure Type: Transthoracic Echocardiogram Location: [facility] [place] Height: 147. cm Weight: 36.29 kg BSA: 1.23 m2 Heart Rate: 76 bpm BP: 173 / 83 mmHg Assistant Teacher Primary: ANGELA Yang MD: Marianela Red MD Database Technician: Filemon Russ MD Symptoms: Possible Chf Study Quality: Adequate ECG Rhythm: Sinus Conclusions: - 1. Normal LV ejection fraction 65-70% with pseudonormal filling pattern 2. Calcific mitral and aortic valve changes noted with normal cardiac valves with a Dopplers 3. Normal calculated RV systolic pressure 4. No gross pericardial effusion Findings Left Ventricle Normal left ventricular size, thickness, and systolic function. The visually estimated ejection fraction is between 65-70%. Spectral Doppler is indicative of a pseudonormal filling pattern. E/E prime ratio is between 8 and 15 consistent with indeterminate filling pressures. Right Ventricle Normal right ventricular cavity size. There is mildly decreased right ventricular systolic function. Atria The left atrium is normal in size. Interatrial shunt cannot be excluded. The right atrium is normal in size. Aortic Valve There is mild calcification of the aortic valve. There is moderate thickening of the aortic valve. There is no aortic valve stenosis. There is no aortic valve regurgitation. Mitral Valve There is mild anterior mitral leaflet thickening. There is mild mitral annular calcification. There is trace mitral valve regurgitation. There is no mitral valve stenosis. Pulmonic Valve The pulmonic valve was not well visualized. Tricuspid Valve Likely normal tricuspid valve structure and function. There is trace tricuspid valve regurgitation. The right ventricular systolic pressure is normal. The right ventricular systolic pressure is 9 mmHg. Normal right atrial pressure. Great Vessels All visible segments of the aorta are normal in size. The pulmonary artery was not well visualized. There is no evidence of plaque in the aorta. Venous The inferior vena cava is normal in size and collapses less than 50% with inspiration. Pericardium/Pleural There is no evidence of pericardial effusion. Prior Study Comparison No prior study available for comparison. Measurements 2D Linear Measurements IVSd: 0.82 0.6-0.9/0.6-1.0 cm LVIDd: 3.51 3.9-5.3/4.2-5.9 cm LVIDd Index: 2.85 2.4-3.2/2.2-3.1 cm/m2 LVIDs: 2.12 2.0-3.6 cm LVPWd: 0.92 0.7-1.1 cm LA Diam: 3.20 2.7-3.8/3.0-4.0 cm LAIDs Index: 2.60 1.5-2.3 cm/m2 LV Mass: 105.00 67-162/88-224 g LV Mass Index: 85.37 43-95/49-115 g/m2 LVOT Diam: 1.90 3.0+(-)1.3 cm 2D Systolic Function EF 4C: 62.80 >55% EF 2C: 74.60 >55% EF BiP: 68.20 >55% Mitral Valve MV Pk E: 0.99 MV PK A: 0.78 MV Decel Time: 209.00 E/A: 1.30 E'Lateral: 8.81 E'Medial: 8.27 E/E' Med: 12.00 E/E' Lat: 11.20 PHT: 61.00 MVA PHT: 3.61 Decel [place]: 4.74 Aortic Valve AoV Pk Jermaine: 1.31 AoV Mn Jermaine: 0.88 AoV VTI: 0.26 AoV Pk Grad: 7.00 Aov Mn Grad: 4.00 MARIE Cont.VTI: 2.27 LVOT LVOT Pk Jermaine: 0.95 LVOT Mn Jermaine: 0.69 LVOT VTI: 0.20 LVOT Pk Grad: 4.00 LVOT Mn Grad: 2.00 LVOT Diam: 1.90 LVOT Area: 2.84 Diastolic Function MV Pk E: 0.99 MV Pk A: 0.78 E/A: 1.30 E'Medial: 8.27 E/E' Med: 12.00 E' Laterial: 8.81 E/E' Lat: 11.20 Right Ventricle TAPSE (mm): 16.30 TVS' Jermaine: 11.70 Tricuspid Valve TR Pk Jermaine: 1.25 TR Pk Grad: 6.00 RA Press: 3.00 RVSP: 9.00 Great Vessels Aorta Sinus of Valsalva: 2.90 2.0-3.5 cm Ao Asc: 3.10 2.1-3.4 cm Pulmonary Valve PV Pk Jermaine: 0.96 Peak PV Grad: 4.00 Updated in Other Vendor System with Status of Final Filemon Russ MD electronically signed on 02/25/2024 11:19:10 AM with status of Final
[2024-02-25] MEDS: levalbuterol HCL 1.25 MG/3 ML VIAL.NEB INHALE ×4 (07:23→19:25)
--- NOTE | 2024-02-25 08:05 | P.PNIM_ITS ---
Subjective Subjective Date of Service: 02/25/24 Interval History: copd excerebation Review of Systems sob somewhat improving denies any chest pain has dry cough Physical Exam 2 Vital Signs: Vital Signs: Last Vital Signs Temp 97.1 F 02/25/24 07:33 Pulse 96 02/25/24 07:33 Resp 16 02/25/24 07:33 BP 173/83 H 02/25/24 07:33 Pulse Ox 100 02/25/24 07:33 O2 Del Method Nasal Cannula 02/25/24 03:40 O2 Flow Rate 2 02/25/24 03:40 Oxygen Flow Rate 2 02/24/24 04:27 BMI result Body Mass Index 16.9 Appearance: Alert.? Oriented X3.? cvs: rrr, [id number] , no murmur res: air entry dimished and has b/l exp wheezing abd: no rebound or guarding ,nt, bs present. ext pulses present , no cyanosis . neuro: axo3 , nonfocal. Objective Data Active Medications Acetaminophen (Acetaminophen 325 Mg Tablet) 650 mg PO Q6H PRN PRN Reason: Pain, Mild (Pain Scale 1-3), fever or headache Amlodipine Besylate (Amlodipine Besylate 5 Mg Tablet) 5 mg PO DAILY [facility]; Protocol Last Admin: 02/24/24 18:27 Dose: 5 mg Documented By: ANNETTE Atorvastatin Calcium (Atorvastatin Calcium 10 Mg Tablet) 10 mg PO DAILY [facility] Last Admin: 02/24/24 18:28 Dose: 10 mg Documented By: ANNETTE Calcium Carbonate (Calcium Carbonate 750 Mg Tab.Chew) 750 mg PO Q4H PRN PRN Reason: Heartburn Dabigatran (Dabigatran Etexilate Mesylate 150 Mg Capsule) 150 mg PO BID [facility]CLUD[facility] Last Admin: 02/24/24 21:58 Dose: 150 mg Documented By: LAURA Guaifenesin/Dextromethorphan (Guaifenesin Dm 200/20/10 Ml 10 Ml Syrup) 10 ml PO Q6H PRN PRN Reason: Cough Ceftriaxone Sodium 1 gm/ (Sodium Chloride) 50 mls @ 100 mls/hr IV Q24H COUNT [facility]CLUDES [facility] Last Admin: 02/25/24 06:06 Dose: 100 mls/hr Documented By: LAURA Levalbuterol HCl (Levalbuterol Hcl 1.25 Mg/3 Ml Vial.Neb) 1.25 mg INHALE RQ4H WHILE AWAKE COUNT INCLUDES [facility] Last Admin: 02/25/24 07:23 Dose: 1.25 mg Documented By: MEGAN Loratadine (Loratadine 10 Mg Tablet) 10 mg PO DAILY [facility] Last Admin: 02/24/24 13:17 Dose: Not Given Documented By: OMID Non-Admin Reason: Patient Asleep Magnesium Hydroxide (Milk Of Magnesia 30 Ml Oral.Susp) 30 ml PO DAILY PRN PRN Reason: Constipation Megestrol Acetate (Megestrol Acetate 20 Mg Tablet) 10 mg PO BID [facility]CLUD[facility] Last Admin: 02/24/24 21:57 Dose: 10 mg Documented By: LAURA Melatonin (Melatonin 3 Mg Tablet) 6 mg PO BEDTIME PRN PRN Reason: Insomnia Methylprednisolone Sodium Succinate (Methylprednisolone Sod Succ 40 Mg/Ml Vial) 40 mg IVPUSH Q12H [facility]CLUD[facility] Last Admin: 02/24/24 21:58 Dose: 40 mg Documented By: LAURA Metoprolol Tartrate (Metoprolol Tartrate 25 Mg Tablet) 25 mg PO BID [facility]; Protocol Last Admin: 02/24/24 21:58 Dose: 25 mg Documented By: LAURA Non-Formulary Medication (Citalopram) 20 mg PO DAILY COUNT [facility]CLUDES [facility] Omeprazole (Omeprazole 20 Mg Capsule.) 20 mg PO DAILY@0630 [facility] Last Admin: 02/25/24 06:06 Dose: 20 mg Documented By: LAURA Ondansetron HCl (Ondansetron Hcl 4 Mg/2 Ml Vial) 4 mg IVPUSH Q8H PRN PRN Reason: Nausea and Vomiting Oxycodone HCl (Oxycodone Hcl Immed Release 5 Mg Tablet) 5 mg PO BID PRN PRN Reason: Pain, Severe (Pain Scale 7-10) Potassium Chloride (Potassium Chloride Er 20 Meq Tab.Er.Prt) 20 meq PO DAILY COUNT [facility]CLUD[facility] Last Admin: 02/24/24 18:28 Dose: 20 meq Documented By: ANNETTE Roflumilast (Roflumilast 500 Mcg Tablet) 500 mcg PO DAILY COUNT [facility]CLUD[facility] Last Admin: 02/24/24 19:08 Dose: 500 mcg Documented By: GOPAL Sodium Chloride (0.9 % Sodium Chloride Flush 3 Ml Syringe) 3 ml IVFLUSH QSHIFT COUNT [facility]CLUDES [facility] Last Admin: 02/24/24 21:58 Dose: 3 ml Documented By: LAURA Labs 02/25/24 05:20 02/25/24 05:20 Labs: Laboratory Results - last 24 hr 02/24/24 02/24/24 02/24/24 05:08 07:49 12:31 MCV MCH MCHC RDW Plt Count MPV Absolute Nucleated RBC Nucleated RBC % (auto) VBG pH VBG pCO2 VBG pO2 VBG HCO3 VBG O2 Saturation VBG Base Excess Anion Gap Estim Creat Clear Calc Estimated GFR Random Glucose Calcium Troponin I High Sens 21.6 H B-Natriuretic Peptide 220 H Respiratory Panel [place] See Note Adenovirus (Rapid PCR) Not Detected B.pert (TEM-PCR) Not Detected B.parapertussis DNA PCR Not Detected C. pneumoniae DNA (PCR) Not Detected Coronavirus OC43 (PCR) Not Detected Coronavirus HKU1 (PCR) Not Detected Coronavirus 229E (PCR) Not Detected Coronavirus NL63 (PCR) Not Detected Human Metapneumovir PCR Not Detected Influenza A (RT-PCR) Not Detected Influenza B (RT-PCR) Not Detected M. pneumoniae (PCR) Not Detected Parainfluenza 1 (PCR) Not Detected Parainfluenza 2 (PCR) Not Detected Parainfluenza 3 (PCR) Not Detected Parainfluenza 4 (PCR) Not Detected RSV (PCR) Not Detected Entero/Rhino (PCR) Not Detected SARS-CoV-2 RNA (RT-PCR) Not Detected 02/24/24 02/25/24 12:39 05:20 MCV 98.7 H MCH 30.8 MCHC 31.2 RDW 12.8 Plt Count 208 MPV 9.5 Absolute Nucleated RBC 0.000 Nucleated RBC % (auto) 0.0 VBG pH 7.38 VBG pCO2 64 VBG pO2 69 VBG HCO3 38 H VBG O2 Saturation 93.0 VBG Base Excess 11.5 Anion Gap 13 Estim Creat Clear Calc 35.1 Estimated GFR > 60 Random Glucose 113 Calcium 9.6 D Troponin I High Sens B-Natriuretic Peptide Respiratory Panel [place] Adenovirus (Rapid PCR) B.pert (TEM-PCR) B.parapertussis DNA PCR C. pneumoniae DNA (PCR) Coronavirus OC43 (PCR) Coronavirus HKU1 (PCR) Coronavirus 229E (PCR) Coronavirus NL63 (PCR) Human Metapneumovir PCR Influenza A (RT-PCR) Influenza B (RT-PCR) M. pneumoniae (PCR) Parainfluenza 1 (PCR) Parainfluenza 2 (PCR) Parainfluenza 3 (PCR) Parainfluenza 4 (PCR) RSV (PCR) Entero/Rhino (PCR) SARS-CoV-2 RNA (RT-PCR) Assessment and Plan (1) Acute on chronic hypoxic respiratory failure: Status: Acute Plan 79-year-old female with a PMH significant for?paroxysmal AFib on Pradaxa, HTN, HLD, COPD on chronic 2L NC, GERD, chronic lower back pain, and anxiety/depression who presents to the ED from home with increased SOB, lethargy, and confusion since this morning. Pt will be admitted to the hospital for treatment and further evaluation of acute on chronic hypoxemic and hypercarbic respiratory failure in the setting of acute COPD exacerbation. Acute on chronic hypoxemic and hypercarbic respiratory failure in the setting COPD exacerbation sob improving but still ahs sob with minimum excersion, no fevers continue DuoNebs, Solu-Medrol, guaifenesin,ceftriaxone for pleiotropic effects, started 02/24/2024,taper O2 with goal of O2 88-90% Generalized weakness Worsening the past month Unable to ambulate at home this morning No reported falls PT evaluation Elevated troponins Initial troponin 22.7 with repeat flat at 21.6 Pt asymptomatic, EKG without significant ischemia Likely type 2 in the setting of increased demand Monitor on telemetry Paroxysmal AFib Continue Pradaxa, metoprolol HTN Continue amlodipine HLD Continue statin Chronic lower back pain Continue home analgesics Mood disorder Continue home mood stabilizers Full Code DVT Prophylaxis: On Pradaxa ongoing hospitalization of?acute on chronic hypoxemic and hypercarbic respiratory failure in setting of acute COPD exacerbation requiring administration of IV steroids, breathing treatments, and increased oxygen demand. Quality Stroke Does the patient have a stroke diagnosis?: No VTE Prior VTE?: No VTE Risk Level:: Medical - moderate - high VTE Device Contraindication: Treatment Not Indicated VTE Drug Contraindication: N/A - Med Ordered
[2024-02-25] MEDS: 0.9 % Sodium Chloride Flush 3 ML SYRINGE IVFLUSH ×3 (09:25→22:43)
[2024-02-25] MEDS: Roflumilast 500 MCG TABLET PO (10:44)
[2024-02-25] MEDS: amLODIPine Besylate 5 MG TABLET PO (10:45)
[2024-02-25] MEDS: Megestrol Acetate 20 MG TABLET 10 MG PO ×2 (10:47→21:18)
[2024-02-25] MEDS: oxyCODONE HCl Immed Release 5 MG TABLET PO (10:48)
[2024-02-25] MEDS: Atorvastatin Calcium 10 MG TABLET PO (10:49)
[2024-02-25] MEDS: Loratadine 10 MG TABLET PO (10:49)
[2024-02-25] MEDS: Escitalopram Oxalate 10 MG TABLET PO (10:50)
[2024-02-25] MEDS: Dabigatran Etexilate Mesylate 150 MG CAPSULE PO ×2 (10:50→21:19)
[2024-02-25] MEDS: Potassium Chloride ER 20 MEQ TAB.ER.PRT PO (10:53)
[2024-02-25] MEDS: methylPREDNISolone Sod Succ 40 MG/ML VIAL IVPUSH ×2 (10:58→22:43)
--- NOTE | 2024-02-25 11:21 | MHC.CLN ---
PT IS MODERATELY MALNOURISHED PT WITH MILDLY DEPLETED SUBCUTANEOUS FAT AND MUSCLE MASS WITH 12% NONSIGNIFICANT WT LOSS X1 YEAR WITH CHRONIC POOR PO. CURRENT WT 36.7 KG PREVIOUS WT 41.5KG (03/03/23) PT'S FAMILY MEMBER REPORTS VERY POOR APPETITE. PT TAKES ENSURE AT HOME WELL. RECEPTIVE TO RE-STARTED ENSURE DIET RX: 2 GM NA -RECOMMEND LIBERALIZING DIET R/T ADVANCED AGE AND POOR PO WILL ADD ENSURE BID AND MAGIC CUP TO INCREASE KCALS MONITOR PO INTAKE AND ENCOURAGE SUPPLEMENTS SEE ALSO FULL CLINICAL NUTRITION ASSESSMENT
[2024-02-25] MEDS: dilTIAZem HCL 30 MG TABLET PO (18:35)
--- NOTE | 2024-02-25 18:42 | PC.NURSE ---
approx 1730 monitor recognized aflutter with tachacardia to 140s, patient bpm returned to 90s, aflutter consisitent, was notified , diltiazem po was ordered and given to patient
[2024-02-25] MEDS: Acetaminophen 325 MG TABLET 650 MG PO (22:49)
[2024-02-26] VITALS (13 sets, daily range): BP systolic 117–156; BP diastolic 57–76; PULSE 88–99; RESP 15–20; TEMP 36.3–37.2; O2SAT 90–100
[2024-02-26] MEDS: cefTRIAXone sodium 1 GM in 0.9 % Sodium Chloride 50 ML IV (05:35)
[2024-02-26] MEDS: Omeprazole 20 MG CAPSULE.DR PO (05:35)
[2024-02-26] MEDS: levalbuterol HCL 1.25 MG/3 ML VIAL.NEB INHALE ×4 (07:45→19:29)
--- NOTE | 2024-02-26 08:22 | MHC.CM.PN ---
CM MET WITH PT AND SON AT BEDSIDE PT REPORTS SHE LIVES ALONE BUT HER SON HAS BEEN WITH HER SHE IS INDEPENDENT AT BL AND USES A WALKER AND HOME O2 FROM [facility] SHE SAYS SHE HAS A HCP NAMING HER DAUGHTER HER AGENT, COPY REQUESTED PCP: AARON JOSE IMM DELIVERED ON 02/24 DCP: HOME ? [facility] TO TRANSPORT
[2024-02-26] MEDS: 0.9 % Sodium Chloride Flush 3 ML SYRINGE IVFLUSH ×2 (08:54→16:11)
[2024-02-26] MEDS: Atorvastatin Calcium 10 MG TABLET PO (08:55)
[2024-02-26] MEDS: Metoprolol Tartrate 25 MG TABLET PO (08:55)
[2024-02-26] MEDS: amLODIPine Besylate 5 MG TABLET PO (08:55)
[2024-02-26] MEDS: Escitalopram Oxalate 10 MG TABLET PO (08:56)
[2024-02-26] MEDS: Potassium Chloride ER 20 MEQ TAB.ER.PRT PO (08:56)
[2024-02-26] MEDS: Loratadine 10 MG TABLET PO (08:56)
[2024-02-26] MEDS: Dabigatran Etexilate Mesylate 150 MG CAPSULE PO ×2 (08:56→20:43)
[2024-02-26] MEDS: Megestrol Acetate 20 MG TABLET 10 MG PO ×2 (08:56→20:42)
[2024-02-26] MEDS: methylPREDNISolone Sod Succ 40 MG/ML VIAL IVPUSH (08:56)
[2024-02-26] MEDS: Roflumilast 500 MCG TABLET PO (08:56)
--- NOTE | 2024-02-26 09:04 | HO.PM.IMPN ---
Subjective Subjective Date of Service: 02/26/24 Interval History: copd excerebation intermittent run afib with rvr Review of Systems sob seems similar no fevers has vesicular lesions right lateral chest which are follwing dermatomal to under breast area -most creusted but has some of them open also.she says 1 week ago it started ,also has significant pain ,some itchiness. Physical Exam Vital Signs: Vital Signs: Last Vital Signs Temp 98.9 F 02/26/24 07:25 Pulse 97 02/26/24 08:55 Resp 15 02/26/24 07:45 BP 156/65 H 02/26/24 08:55 Pulse Ox 98 02/26/24 07:25 O2 Del Method Nasal Cannula 02/26/24 07:25 O2 Flow Rate 2 02/26/24 07:25 Oxygen Flow Rate 2 02/24/24 04:27 BMI result Body Mass Index 16.9 Appearance: Alert.? Oriented X3.? cvs: rrr, [id number] , no murmur res: air entry dimished and has b/l exp wheezing abd: no rebound or guarding ,nt, bs present. ext pulses present , no cyanosis . skin-please see rash ( interval hx area) neuro: axo3 , nonfocal. Objective Data Active Medications Acetaminophen (Acetaminophen 325 Mg Tablet) 650 mg PO Q6H PRN PRN Reason: Pain, Mild (Pain Scale 1-3), fever or headache Last Admin: 02/25/24 22:49 Dose: 650 mg Documented By: ROBINSON Amlodipine Besylate (Amlodipine Besylate 5 Mg Tablet) 5 mg PO DAILY [facility]; Protocol Last Admin: 02/26/24 08:55 Dose: 5 mg Documented By: BRANDIN Atorvastatin Calcium (Atorvastatin Calcium 10 Mg Tablet) 10 mg PO DAILY [facility] Last Admin: 02/26/24 08:55 Dose: 10 mg Documented By: BRANDIN Calcium Carbonate (Calcium Carbonate 750 Mg Tab.Chew) 750 mg PO Q4H PRN PRN Reason: Heartburn Dabigatran (Dabigatran Etexilate Mesylate 150 Mg Capsule) 150 mg PO BID [facility] Last Admin: 02/26/24 08:56 Dose: 150 mg Documented By: BRANDIN Escitalopram Oxalate (Escitalopram Oxalate 10 Mg Tablet) 10 mg PO DAILY [facility] Last Admin: 09/21/24 08:56 Dose: 10 mg Documented By: BRANDIN Guaifenesin/Dextromethorphan (Guaifenesin Dm 200/20/10 Ml 10 Ml Syrup) 10 ml PO Q6H PRN PRN Reason: Cough Ceftriaxone Sodium 1 gm/ (Sodium Chloride) 50 mls @ 100 mls/hr IV Q24H [facility] Last Infusion: 02/26/24 06:45 Dose: Infused Documented By: ROBINSON Levalbuterol HCl (Levalbuterol Hcl 1.25 Mg/3 Ml Vial.Neb) 1.25 mg INHALE RQ4H WHILE AWAKE [facility] Last Admin: 02/26/24 07:45 Dose: 1.25 mg Documented By: ROCÍO Loratadine (Loratadine 10 Mg Tablet) 10 mg PO DAILY [facility] Last Admin: 02/26/24 08:56 Dose: 10 mg Documented By: BRANDIN Magnesium Hydroxide (Milk Of Magnesia 30 Ml Oral.Susp) 30 ml PO DAILY PRN PRN Reason: Constipation Megestrol Acetate (Megestrol Acetate 20 Mg Tablet) 10 mg PO BID [facility] Last Admin: 02/26/24 08:56 Dose: 10 mg Documented By: BRANDIN Melatonin (Melatonin 3 Mg Tablet) 6 mg PO BEDTIME PRN PRN Reason: Insomnia Methylprednisolone Sodium Succinate (Methylprednisolone Sod Succ 40 Mg/Ml Vial) 40 mg IVPUSH Q12H [facility] Last Admin: 02/26/24 08:56 Dose: 40 mg Documented By: BRANDIN Metoprolol Tartrate (Metoprolol Tartrate 25 Mg Tablet) 25 mg PO BID [facility]; Protocol Last Admin: 02/26/24 08:55 Dose: 25 mg Documented By: BRANDIN Omeprazole (Omeprazole 20 Mg Capsule.) 20 mg PO DAILY@0630 [facility] Last Admin: 02/26/24 05:35 Dose: 20 mg Documented By: ROBINSON Ondansetron HCl (Ondansetron Hcl 4 Mg/2 Ml Vial) 4 mg IVPUSH Q8H PRN PRN Reason: Nausea and Vomiting Oxycodone HCl (Oxycodone Hcl Immed Release 5 Mg Tablet) 5 mg PO BID PRN PRN Reason: Pain, Severe (Pain Scale 7-10) Last Admin: 02/25/24 10:48 Dose: 5 mg Documented By: HO.GUILMAT Potassium Chloride (Potassium Chloride Er 20 Meq Tab.Er.Prt) 20 meq PO DAILY [facility] Last Admin: 02/26/24 08:56 Dose: 20 meq Documented By: BRANDIN Roflumilast (Roflumilast 500 Mcg Tablet) 500 mcg PO DAILY [facility] Last Admin: 02/26/24 08:56 Dose: 500 mcg Documented By: BRANDIN Sodium Chloride (0.9 % Sodium Chloride Flush 3 Ml Syringe) 3 ml IVFLUSH QSHIFT [facility] Last Admin: 02/26/24 08:54 Dose: 3 ml Documented By: BRANDIN Labs 02/25/24 05:20 02/25/24 05:20 Microbiology Microbiology Results: Microbiology 02/24/24 06:15 Blood Culture - Preliminary Blood - Venous No growth after 48 hours. 02/24/24 06:15 Blood Culture - Preliminary Blood - Venous No growth after 48 hours. Assessment and Plan (1) Acute on chronic hypoxic respiratory failure: Status: Acute Plan 79-year-old female with a PMH significant for?paroxysmal AFib on Pradaxa, HTN, HLD, COPD on chronic 2L NC, GERD, chronic lower back pain, and anxiety/depression who presents to the ED from home with increased SOB, lethargy, and confusion since this morning. Pt will be admitted to the hospital for treatment and further evaluation of acute on chronic hypoxemic and hypercarbic respiratory failure in the setting of acute COPD exacerbation. Acute on chronic hypoxemic and hypercarbic respiratory failure in the setting COPD exacerbation sob improving but still ahs sob with minimum excersion, no fevers continue DuoNebs, Solu-Medrol, guaifenesin,ceftriaxone for pleiotropic effects, started 02/24/2024,taper O2 with goal of O2 88-90% Possible Vz Rash-unclear if some open lesions are new ,she said it started 1 week back. added valacyclovir,alsready on steriods ,added gabapentine contact/airborne precautions Generalized weakness Worsening the past month Unable to ambulate at home this morning No reported falls PT evaluation Elevated troponins Initial troponin 22.7 with repeat flat at 21.6 Pt asymptomatic, EKG without significant ischemia Likely type 2 in the setting of increased demand Monitor on telemetry Paroxysmal AFib intemittent ventricular rate elevation 140 ( has signifiacnt pain/anxiety episode) Continue Pradaxa, stopped metoprolol and added diliazem 30 mg qid HTN Continue amlodipine HLD Continue statin Chronic lower back pain Continue home analgesics Mood disorder Continue home mood stabilizers Full Code DVT Prophylaxis: On Pradaxa ongoing hospitalization of?acute on chronic hypoxemic and hypercarbic respiratory failure in setting of acute COPD exacerbation requiring administration of IV steroids, breathing treatments, and increased oxygen demand. Quality Stroke Does the patient have a stroke diagnosis?: No VTE Prior VTE?: No VTE Risk Level:: Medical - moderate - high VTE Device Contraindication: Treatment Not Indicated VTE Drug Contraindication: N/A - Med Ordered
[2024-02-26 10:16] LABS: Thyroid Stimulating Hormone 0.64 uIU/mL (0.32-4.0)
[2024-02-26] MEDS: dilTIAZem HCL 30 MG TABLET PO ×3 (11:43→20:44)
[2024-02-26] MEDS: valACYclovir HCL 1,000 MG TABLET 1000 MG PO (12:41)
[2024-02-26] MEDS: Gabapentin 100 MG CAPSULE PO ×3 (12:42→20:43)
[2024-02-26] MEDS: oxyCODONE HCl Immed Release 5 MG TABLET PO (12:42)
[2024-02-26] MEDS: LORazepam 0.5 MG TABLET PO (16:11)
[2024-02-27] VITALS (15 sets, daily range): BP systolic 116–141; BP diastolic 48–69; PULSE 64–178; RESP 16–22; TEMP 36.2–37.5; O2SAT 88–94
--- NOTE | 2024-02-27 | ECG_ITS ---
Test Reason : afb/aflutter Blood Pressure : / mmHG Vent. Rate : 136 BPM Atrial Rate : 315 BPM P-R Int : 000 ms QRS Dur : 074 ms QT Int : 280 ms P-R-T Axes : 000 046 072 degrees QTc Int : 421 ms Atrial flutter with variable A-V block Abnormal ECG When compared with ECG of 24-FEB-2024 16:14, No significant change was found Referred By: Marianela Red Electronically Signed By:LISET MCCANN
[2024-02-27] MEDS: methylPREDNISolone Sod Succ 40 MG/ML VIAL IVPUSH ×3 (00:28→22:41)
[2024-02-27] MEDS: 0.9 % Sodium Chloride Flush 3 ML SYRINGE IVFLUSH ×4 (00:31→22:42)
[2024-02-27] MEDS: valACYclovir HCL 1,000 MG TABLET 1000 MG PO ×2 (00:32→12:51)
[2024-02-27] MEDS: cefTRIAXone sodium 1 GM in 0.9 % Sodium Chloride 50 ML IV (05:39)
[2024-02-27] MEDS: Omeprazole 20 MG CAPSULE.DR PO (05:39)
[2024-02-27] MEDS: levalbuterol HCL 1.25 MG/3 ML VIAL.NEB INHALE ×4 (07:50→19:05)
[2024-02-27] MEDS: Megestrol Acetate 20 MG TABLET 10 MG PO (08:39)
[2024-02-27] MEDS: amLODIPine Besylate 5 MG TABLET PO (08:40)
[2024-02-27] MEDS: Atorvastatin Calcium 10 MG TABLET PO (08:40)
[2024-02-27] MEDS: Roflumilast 500 MCG TABLET PO (08:40)
[2024-02-27] MEDS: Dabigatran Etexilate Mesylate 150 MG CAPSULE PO (08:40)
[2024-02-27] MEDS: Gabapentin 100 MG CAPSULE PO (08:40)
[2024-02-27] MEDS: Escitalopram Oxalate 10 MG TABLET PO (08:40)
[2024-02-27] MEDS: Potassium Chloride ER 20 MEQ TAB.ER.PRT PO (08:40)
[2024-02-27] MEDS: Loratadine 10 MG TABLET PO (08:40)
[2024-02-27] MEDS: dilTIAZem HCL 30 MG TABLET PO (08:40)
[2024-02-27] MEDS: Magnesium Sulfate/D5W 1 GM/100 ML PIGGYBACK IV (10:00)
[2024-02-27] MEDS: dilTIAZem HCL 50 MG/10 ML VIAL IVPUSH ×2 (10:00→13:02)
[2024-02-27] MEDS: Gabapentin 100 MG CAPSULE 200 MG PO (10:02)
[2024-02-27] MEDS: Acetaminophen 325 MG TABLET 975 MG PO (10:02)
[2024-02-27] MEDS: oxyCODONE HCl Immed Release 5 MG TABLET PO (10:03)
[2024-02-27] MEDS: dilTIAZem HCL 125 MG in 0.9 % Sodium Chloride 100 ML 10 MG IVCONT (13:05)
[2024-02-27 13:08] LABS: Hematocrit 34.3 % (37.0-47.0); Hemoglobin 10.6 g/dl (12.0-16.0); Mean Corpuscular HGB Conc 30.9 g/dl (31.0-35.0); Mean Corpuscular Hemoglobin 31.5 pg (27.0-33.0); Mean Corpuscular Volume 102.1 fL (80.0-98.0); Mean Platelet Volume 9.1 fL (9.4-12.3); Platelet Count 278 X10*3/uL (160-400); Red Blood Count 3.36 X10*6/uL (4.20-5.50); Red Cell Distribution Width 12.9 % (11.0-16.0); White Blood Count 17.2 X10*3/uL (4.8-10.8)
[2024-02-27 13:15] LABS: ABG Base Excess 15.6 mmol/L; ABG HCO3 43 mmol/L (22-26); ABG pCO2 74 mmHg (32-45); ABG pH 7.37 (7.35-7.45); ABG pO2 113 mmHg (83-108)
[2024-02-27 13:37] LABS: B Type Natriuretic Peptide 207 pg/mL (<100)
--- NOTE | 2024-02-27 14:26 | HO.PM.IMPN ---
Subjective Subjective Date of Service: 02/27/24 Interval History: copd excerebation aflutter Review of Systems sob intermittent worsening has a flutter in rate 160-180 range wbc flacuating no fevers Physical Exam Vital Signs: Vital Signs: Last Vital Signs Temp 97.1 F 02/27/24 11:07 Pulse 178 H 02/27/24 13:05 Resp 22 H 02/27/24 11:19 BP 116/57 L 02/27/24 13:05 Pulse Ox 88 L 02/27/24 11:07 O2 Del Method Nasal Cannula 02/27/24 11:07 O2 Flow Rate 2 02/27/24 11:07 Oxygen Flow Rate 2 02/24/24 04:27 BMI result Body Mass Index 16.9 Appearance: awake ? cvs: irregular rythem, [id number] . res: air entry dimished and has b/l exp wheezing abd: no rebound or guarding ,nt, bs present. ext pulses present , no cyanosis . neuro: nonfocal. Objective Data Active Medications Acetaminophen (Acetaminophen 325 Mg Tablet) 975 mg PO Q4H [facility] Last Admin: 02/27/24 10:02 Dose: 975 mg Documented By: BRANDIN Atorvastatin Calcium (Atorvastatin Calcium 10 Mg Tablet) 10 mg PO DAILY [facility] Last Admin: 02/27/24 08:40 Dose: 10 mg Documented By: BRANDIN Calamine (Calamine/Zinc Oxide Lotion 177 Ml Bottle) 1 appl TOPICAL Q3H PRN; Protocol PRN Reason: Rash Calcium Carbonate (Calcium Carbonate 750 Mg Tab.Chew) 750 mg PO Q4H PRN PRN Reason: Heartburn Dabigatran (Dabigatran Etexilate Mesylate 150 Mg Capsule) 150 mg PO BID [facility] Last Admin: 02/27/24 08:40 Dose: 150 mg Documented By: BRANDIN Escitalopram Oxalate (Escitalopram Oxalate 10 Mg Tablet) 10 mg PO DAILY [facility] Last Admin: 02/27/24 08:40 Dose: 10 mg Documented By: BRANDIN Gabapentin (Gabapentin 100 Mg Capsule) 100 mg PO TID [facility] Last Admin: 02/27/24 08:40 Dose: 100 mg Documented By: BRANDIN Guaifenesin/Dextromethorphan (Guaifenesin Dm 200/20/10 Ml 10 Ml Syrup) 10 ml PO Q6H PRN PRN Reason: Cough Ceftriaxone Sodium 1 gm/ (Sodium Chloride) 50 mls @ 100 mls/hr IV Q24H [facility] Last Infusion: 02/27/24 06:34 Dose: Infused Documented By: ROBINSON Diltiazem HCl 125 mg/ Sodium (Chloride) 125 mls @ 0 mls/hr IVCONT .Q0M [facility]; Protocol Last Admin: 02/27/24 13:05 Dose: 10 mg/hr, 10 mls/hr Documented By: BRANDIN Levalbuterol HCl (Levalbuterol Hcl 1.25 Mg/3 Ml Vial.Neb) 1.25 mg INHALE RQ4H WHILE AWAKE [facility] Last Admin: 02/27/24 11:19 Dose: 1.25 mg Documented By: LINK Loratadine (Loratadine 10 Mg Tablet) 10 mg PO DAILY [facility] Last Admin: 02/27/24 08:40 Dose: 10 mg Documented By: BRANDIN Lorazepam (Lorazepam 0.5 Mg Tablet) 0.5 mg PO BID PRN PRN Reason: Anxiety Last Admin: 02/26/24 16:11 Dose: 0.5 mg Documented By: BRANDIN Magnesium Hydroxide (Milk Of Magnesia 30 Ml Oral.Susp) 30 ml PO DAILY PRN PRN Reason: Constipation Megestrol Acetate (Megestrol Acetate 20 Mg Tablet) 10 mg PO BID [facility] Last Admin: 02/27/24 08:39 Dose: 10 mg Documented By: BRANDIN Melatonin (Melatonin 3 Mg Tablet) 6 mg PO BEDTIME PRN PRN Reason: Insomnia Methylprednisolone Sodium Succinate (Methylprednisolone Sod Succ 40 Mg/Ml Vial) 40 mg IVPUSH Q12H [facility] Last Admin: 02/27/24 10:00 Dose: 40 mg Documented By: BRANDIN Omeprazole (Omeprazole 20 Mg Capsule.) 20 mg PO DAILY@0630 [facility] Last Admin: 02/27/24 05:39 Dose: 20 mg Documented By: ROBINSON Ondansetron HCl (Ondansetron Hcl 4 Mg/2 Ml Vial) 4 mg IVPUSH Q8H PRN PRN Reason: Nausea and Vomiting Potassium Chloride (Potassium Chloride Er 20 Meq Tab.Er.Prt) 20 meq PO DAILY [facility] Last Admin: 02/27/24 08:40 Dose: 20 meq Documented By: BRANDIN Roflumilast (Roflumilast 500 Mcg Tablet) 500 mcg PO DAILY [facility] Last Admin: 02/27/24 08:40 Dose: 500 mcg Documented By: BRANDIN Sodium Chloride (0.9 % Sodium Chloride Flush 3 Ml Syringe) 3 ml IVFLUSH QSHIFT [facility] Last Admin: 02/27/24 08:38 Dose: 3 ml Documented By: BRANDIN Valacyclovir HCl (Valacyclovir Hcl 1,000 Mg Tablet) 1,000 mg PO Q12H [facility] Last Admin: 02/27/24 12:51 Dose: 1,000 mg Documented By: BRANDIN Labs 02/27/24 12:47 02/25/24 05:20 Labs: Laboratory Results - last 24 hr 02/27/24 02/27/24 12:47 13:04 MCV 102.1 H MCH 31.5 MCHC 30.9 L RDW 12.9 Plt Count 278 D MPV 9.1 L Absolute Nucleated RBC 0.000 Nucleated RBC % (auto) 0.0 O2 Saturation 99.0 ABG pH at Pt Temp 7.37 ABG pCO2 at Pt Temp 74 H* ABG pO2 at Pt Temp 113 H ABG HCO3 43 H ABG Base Excess (Actual) 15.6 B-Natriuretic Peptide 207 H Assessment and Plan (1) Acute on chronic hypoxic respiratory failure: Status: Acute Plan 79-year-old female with a PMH significant for?paroxysmal AFib on Pradaxa, HTN, HLD, COPD on chronic 2L NC, GERD, chronic lower back pain, and anxiety/depression who presents to the ED from home with increased SOB, lethargy, and confusion since this morning. Pt will be admitted to the hospital for treatment and further evaluation of acute on chronic hypoxemic and hypercarbic respiratory failure in the setting of acute COPD exacerbation. Acute on chronic hypoxemic and hypercarbic respiratory failure in the setting COPD exacerbation sob worsening intermittent abg ph maintained ,co2 slightly 70's range added ct chest plan: continue xopenex, Solu-Medrol, guaifenesin,ceftriaxone for pleiotropic effects, started 02/24/2024,taper O2 with goal of O2 88-90% icu eval called -recomended to continue above management , consider dilaudid if needed .a sper icu even if bipap needed they will check with nursing trust accounts supervisor to do it on floor. Paroxysmal AFib has aflutter rate around 160-180. Continue Pradaxa hold metoprolol added cardizem drip cardiology eval pending Generalized weakness Worsening the past month Unable to ambulate at home this morning No reported falls PT evaluation Elevated troponins Initial troponin 22.7 with repeat flat at 21.6 Pt asymptomatic, EKG without significant ischemia Likely type 2 in the setting of increased demand Monitor on telemetry HTN Continue amlodipine HLD Continue statin Chronic lower back pain Continue home analgesics Mood disorder Continue home mood stabilizers Full Code DVT Prophylaxis: On Pradaxa ongoing hospitalization of?acute on chronic hypoxemic and hypercarbic respiratory failure in setting of acute COPD exacerbation , arequiring administration of IV steroids, breathing treatments, and increased oxygen demand.aflutter -needs iv cardizemdrip. tele monitering. patient is dnr/dni Ic[facility] d/w patient daughter . Quality Stroke Does the patient have a stroke diagnosis?: No VTE Prior VTE?: No VTE Risk Level:: Medical - moderate - high VTE Device Contraindication: Treatment Not Indicated VTE Drug Contraindication: N/A - Med Ordered
[2024-02-27 15:11] LABS: ABG Refer to POC result
[2024-02-27 16:59] LABS: Venous Blood Gas Refer to POC result
[2024-02-27 17:00] LABS: VBG Base Excess 17.9 mmol/L; VBG HCO3 43 mmol/L (22-26); VBG pCO2 55 mmHg; VBG pO2 215 mmHg
[2024-02-27] MEDS: Furosemide 20 MG/2 ML VIAL IVPUSH (17:05)
[2024-02-27] MEDS: Clindamycin Phosphate/D5W 600 MG/50 ML PIGGYBACK 100 MG IV (17:28)
--- NOTE | 2024-02-27 18:05 | PC.NURSE ---
Patient throughout the day having increases in HR as high as the 180's. Patient asymptomatic and MD notified. Per MD stat EKG to be done, EKG shows Aflutter. Per MD give loading dose of Cardizem and then start on drip. Patient started at 10mg/hr and tolerated well and was able to titrate drip to 2.5mg/h currently. HR now sustaining in the low 100's, chest x-ray, chest CT and x2 ABG done as well. Patient continues to be asymptomatic but has had increase in lethargy. Patient requiring increase in o2 supplements at times. Provider is aware and placed orders to make patient NPO and consulted speech due to chance of aspiration. Prophylactic abx running.
[2024-02-27] MEDS: Linezolid/D5W 600 MG/300 ML PIGGYBACK 300 MG IV (19:51)
[2024-02-27] MEDS: ACYCLOVIR SODIUM IV (21:32)
[2024-02-27] MEDS: DEXTROSE 5% IV (21:32)
[2024-02-27] MEDS: Enoxaparin Sodium 30 MG/0.3 ML SYRINGE SUBCUT (22:41)
[2024-02-28] VITALS (9 sets, daily range): BP systolic 128–143; BP diastolic 62–71; PULSE 95–109; RESP 16–26; TEMP 36–37.1; O2SAT 90–97
[2024-02-28] MEDS: Clindamycin Phosphate/D5W 600 MG/50 ML PIGGYBACK 100 MG IV (04:18)
--- NOTE | 2024-02-28 05:35 | PC.NURSE ---
1945 Family requested to speak with MD in regards to plan of care. MD at bedside and spoke with family members. Pastoral services notified per family request. Pastor Maravilla at bedside to speak with pt and family members.
[2024-02-28] MEDS: levalbuterol HCL 1.25 MG/3 ML VIAL.NEB INHALE (07:58)
[2024-02-28] MEDS: 0.9 % Sodium Chloride Flush 3 ML SYRINGE IVFLUSH ×2 (08:30→20:48)
[2024-02-28] MEDS: Linezolid/D5W 600 MG/300 ML PIGGYBACK 300 MG IV (08:31)
[2024-02-28] MEDS: Acetaminophen 325 MG TABLET 975 MG PO ×4 (08:35→20:46)
[2024-02-28] MEDS: Atorvastatin Calcium 10 MG TABLET PO (08:37)
[2024-02-28] MEDS: Megestrol Acetate 20 MG TABLET 10 MG PO ×2 (08:37→20:45)
[2024-02-28] MEDS: Escitalopram Oxalate 10 MG TABLET PO (08:37)
[2024-02-28] MEDS: Gabapentin 100 MG CAPSULE PO ×3 (08:37→20:46)
[2024-02-28] MEDS: Loratadine 10 MG TABLET PO (08:37)
[2024-02-28] MEDS: Roflumilast 500 MCG TABLET PO (08:37)
[2024-02-28] MEDS: Enoxaparin Sodium 30 MG/0.3 ML SYRINGE SUBCUT ×2 (08:38→20:48)
--- NOTE | 2024-02-28 10:23 | MHC.CLN ---
RE; CONSULT SEE FULL CLINICAL NUTRITION ASSESSMENT DATED 02/25/24-PT IS MODERATELY MALNOURISHED PT WITH MILDLY DEPLETED SUBCUTANEOUS FAT AND MUSCLE MASS WITH 12% NONSIGNIFICANT WT LOSS X1 YEAR WITH CHRONIC POOR PO. CURRENT WT 36.7 KG PREVIOUS WT 41.5KG (03/03/23) PT'S FAMILY MEMBER REPORTS VERY POOR APPETITE. PT TAKES ENSURE AT HOME WELL. 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
--- NOTE | 2024-02-28 10:24 | PM.CNCAR ---
History of Present Illness History of Present Illness Date of Service: 02/28/24 Chief complaint: COPD exacerbation Narrative: This is a cardiology consultation regarding atrial fibrillation. Evaluated patient and also discussed with family at bedside. He is seen at [facility]. History of COPD and chronic oxygen therapy, atrial fibrillation on Pradaxa and many comorbidities. She was admitted for shortness of breath, lethargy and confusion. In this context, she has been diagnosed as acute on chronic hypoxemic and hypercarbic respiratory failure. She does have a history of paroxysmal atrial fibrillation and apparently was having rapid rates. Hence we are consulted. She has been put on a Cardizem drip. Seems to be on metoprolol at baseline but that is being held. Otherwise, patient herself denies any clear-cut symptoms like palpitations or angina. Review of Systems Review of Systems: Yes all other systems are reviewed and are negative Constitutional: Constitutional: Reports as per HPI and Reports no additional constitutional complaints Eyes: Eyes: Reports as per HPI and Denies no additional eye complaints ENT: Denies system reviewed and no additional complaints, except as documented and Reports as per HPI Cardiovascular: Cardiovascular: Reports as per HPI, Reports no additional cardiovascular complaints, Denies acrocyanosis, Denies cool extremities, Denies chest pain, Denies leg edema, Denies lightheadedness, Denies palpitations and Reports dyspnea Respiratory: Respiratory: Reports as per HPI, Denies no additional respiratory complaints and Reports dyspnea Gastrointestinal: Gastrointestinal: Reports as per HPI and Denies no additional gastrointestinal complaints Genitourinary: Genitourinary: Reports as per HPI Musculoskeletal: Musculoskeletal: Reports no additional musculoskeletal complaints and Reports as per HPI Integumentary/Breasts: Skin/Breast: Reports system reviewed and no additional complaints, except as docu Neurologic: Reports system reviewed and no additional complaints, except as documented and Reports as per HPI Psychiatric: Psychiatric: Reports no additional psychiatric complaints and Reports as per HPI Endocrine: Endocrine: Reports no additional endocrine complaints, Reports as per HPI and Denies palpitations Hematologic/Lymphatic: Hematologic/Lymphatic: Reports no additional hematologic/lymphatic complaints and Reports as per HPI Allergic/Immunologic: Allergic/Immunologic: Reports no additional allergic/immunologic complaints and Reports as per HPI [facility] Past Medical History Medical History COVID-19 vaccine administered Arthritis GERD (gastroesophageal reflux disease) Depression Oxygen dependent COPD (chronic obstructive pulmonary disease) Arrhythmia HTN (hypertension) Family History Pertinent family history: No pertinent family history. Surgical History Surgical History Hx of appendectomy H/O colonoscopy Social History Social History Household Members: Family Housing: House Are you a primary palliative care physician to a significant other at home: No Do you presently have visiting nurse or other home services: No Alcohol intake: never Patient Tobacco Use Status: Former Tobacco user Tobacco use type: Cigarette Smoked in Last 30 Days: No e-Cigarette/Vaping Use: Never Used Second Hand Smoke Exposure: No Use of substances other than those prescribed or required for medical reasons: No Currently Displaying Signs/Symptoms of Drug Intoxication Withdrawal: No Do you feel safe in your current relationship?: No Current Relationship Is there a partner from a previous relationship who is making you feel unsafe now?: No Are you made to feel afraid or neglected: No Advance Directives: Yes Advance Directives Information Provided: Yes Advance Directives on File: No Advance Directives Date on File: 02/24/24 Do you have a plan to hurt others: No Plan Nutrition Risks: No Nutritional Risk Patient : No service: No Current occupational status: retired Current occupational exposures/hazards: No Hearing needs: No Meds Allergies Allergy/AdvReac Type Severity Reaction Status Date / Time pantoprazole Allergy Intermediate mouth le Verified 02/24/24 04:34 Penicillins Allergy Intermediate Itching Verified 02/24/24 04:34 Active Medications: Current Medications Acetaminophen (Acetaminophen 325 Mg Tablet) 975 mg PO Q4H [facility] Last Admin: 02/28/24 08:35 Dose: 975 mg Atorvastatin Calcium (Atorvastatin Calcium 10 Mg Tablet) 10 mg PO DAILY [facility] Last Admin: 02/28/24 08:37 Dose: 10 mg Calamine (Calamine/Zinc Oxide Lotion 177 Ml Bottle) 1 appl TOPICAL Q3H PRN; Protocol PRN Reason: Rash Calcium Carbonate (Calcium Carbonate 750 Mg Tab.Chew) 750 mg PO Q4H PRN PRN Reason: Heartburn Enoxaparin Sodium (Enoxaparin Sodium 30 Mg/0.3 Ml Syringe) 30 mg SUBCUT Q12H [facility] Last Admin: 02/28/24 08:38 Dose: 30 mg Escitalopram Oxalate (Escitalopram Oxalate 10 Mg Tablet) 10 mg PO DAILY [facility] Last Admin: 02/28/24 08:37 Dose: 10 mg Gabapentin (Gabapentin 100 Mg Capsule) 100 mg PO TID [facility] Last Admin: 02/28/24 08:37 Dose: 100 mg Guaifenesin/Dextromethorphan (Guaifenesin Dm 200/20/10 Ml 10 Ml Syrup) 10 ml PO Q6H PRN PRN Reason: Cough Diltiazem HCl 125 mg/ Sodium (Chloride) 125 mls @ 0 mls/hr IVCONT .Q0M [facility]; Protocol Last Titration: 02/28/24 01:24 Dose: 2.5 mg/hr, 2.5 mls/hr Acyclovir Sodium 450 mg/ (Dextrose) 109 mls @ 110.008 mls/hr IV Q12H [facility] Last Infusion: 02/27/24 22:32 Dose: Infused Ceftriaxone Sodium 1 gm/ (Sodium Chloride) 50 mls @ 100 mls/hr IV Q24H [facility] Metronidazole (Flagyl) 500 mg in 100 mls @ 100 mls/hr IV Q8H [facility] Levalbuterol HCl (Levalbuterol Hcl 1.25 Mg/3 Ml Vial.Neb) 1.25 mg INHALE RQ4H WHILE AWAKE [facility] Last Admin: 02/28/24 07:58 Dose: 1.25 mg Loratadine (Loratadine 10 Mg Tablet) 10 mg PO DAILY [facility] Last Admin: 02/28/24 08:37 Dose: 10 mg Lorazepam (Lorazepam 0.5 Mg Tablet) 0.5 mg PO BID PRN PRN Reason: Anxiety Last Admin: 02/26/24 16:11 Dose: 0.5 mg Magnesium Hydroxide (Milk Of Magnesia 30 Ml Oral.Susp) 30 ml PO DAILY PRN PRN Reason: Constipation Megestrol Acetate (Megestrol Acetate 20 Mg Tablet) 10 mg PO BID [facility] Last Admin: 02/28/24 08:37 Dose: 10 mg Melatonin (Melatonin 3 Mg Tablet) 6 mg PO BEDTIME PRN PRN Reason: Insomnia Methylprednisolone Sodium Succinate (Methylprednisolone Sod Succ 40 Mg/Ml Vial) 40 mg IVPUSH Q12H [facility] Last Admin: 02/27/24 22:41 Dose: 40 mg Omeprazole (Omeprazole 20 Mg Capsule.Dr) 20 mg PO DAILY@0630 [facility] Last Admin: 02/28/24 05:31 Dose: Not Given Ondansetron HCl (Ondansetron Hcl 4 Mg/2 Ml Vial) 4 mg IVPUSH Q8H PRN PRN Reason: Nausea and Vomiting Potassium Chloride (Potassium Chloride Er 20 Meq Tab.Er.Prt) 20 meq PO DAILY [facility] Last Admin: 02/27/24 08:40 Dose: 20 meq Roflumilast (Roflumilast 500 Mcg Tablet) 500 mcg PO DAILY [facility] Last Admin: 02/28/24 08:37 Dose: 500 mcg Sodium Chloride (0.9 % Sodium Chloride Flush 3 Ml Syringe) 3 ml IVFLUSH QSHIFT [facility] Last Admin: 02/28/24 08:30 Dose: 3 ml Home Medications ?Medication ?Instructions ?Recorded ?Confirmed ?Last Taken ?Type albuterol sulfate 2.5 mg/3 mL 1 vial inhalation Q6H PRN wheezing 12/18/20 02/24/24 02/23/24 History (0.083 %) solution for nebulization dabigatran etexilate 150 mg 1 cap PO BID 12/18/20 02/24/24 02/23/24 History capsule (Pradaxa) ipratropium 20 mcg-albuterol 100 1 puff PO QID 12/18/20 02/24/24 02/23/24 History mcg/actuation mist for inhalation (Combivent Respimat) roflumilast 500 mcg tablet 500 mcg PO DAILY 12/18/20 02/24/24 Unknown History (Daliresp) loratadine 10 mg tablet (Allergy 10 mg PO DAILY 10/27/22 02/24/24 02/23/24 History Relief (loratadine)) amlodipine 5 mg tablet 5 mg PO DAILY 02/24/24 02/24/24 02/23/24 History formoterol fumarate 20 mcg/2 mL 2 ml inhalation BID 02/24/24 02/24/24 02/23/24 History solution for nebulization lansoprazole 30 mg capsule,delayed 30 mg PO DAILY@0630 02/24/24 02/24/24 Unknown History release Physical Exam Vital Signs: Vital Signs: Last Vital Signs Temp 96.8 F 02/28/24 07:35 Pulse 98 02/28/24 07:58 Resp 22 H 02/28/24 07:58 BP 137/65 02/28/24 07:35 Pulse Ox 93 02/28/24 07:35 O2 Del Method Oxymask 02/28/24 07:35 O2 Flow Rate 4 02/28/24 07:35 Oxygen Flow Rate 2 02/24/24 04:27 BMI result Body Mass Index 16.9 Const: General: comfortable and no acute distress Nutritional Appearance: thin and underweight Orientation/consciousness: patient oriented x3 HEENT: Other: Unremarkable Head: Yes normal to inspection Neck: Neck: Yes normal visual inspection Chest: Chest palpation & inspection: normal inspection of the chest Resp: Auscultation: rhonchi and diminished lung sounds Cardio: Palpation: normal PMI Heart sounds: S1 normal heart sound present, S2 normal heart sound present, no gallops, no murmurs and no rubs GI: Palpation (GI): Soft to palpation Back/Spine/Pelvis: Other: unremarkable Skin: General skin exam: no rashes or lesions noted Neuro: General: patient oriented x3 Extrem: General: Yes normal to inspection Psych: Mental Status: mental status grossly normal Objective Labs and Meds 02/27/24 12:47 02/25/24 05:20 Lab results: Laboratory Results - last 24 hr 02/27/24 02/27/24 02/27/24 12:47 13:04 16:56 WBC 17.2 H RBC 3.36 L Hgb 10.6 L Hct 34.3 L MCV 102.1 H MCH 31.5 MCHC 30.9 L RDW 12.9 Plt Count 278 D MPV 9.1 L Absolute Nucleated RBC 0.000 Nucleated RBC % (auto) 0.0 O2 Saturation 99.0 ABG pH at Pt Temp 7.37 ABG pCO2 at Pt Temp 74 H* ABG pO2 at Pt Temp 113 H ABG HCO3 43 H ABG Base Excess (Actual) 15.6 VBG pH 7.50 H VBG pCO2 55 VBG pO2 215 VBG HCO3 43 H VBG O2 Saturation 100.0 VBG Base Excess 17.9 B-Natriuretic Peptide 207 H ECG Interpretation: Admission EKG with sinus rhythm at 79/Min with sinus arrhythmia. In the subsequent EKG, suggestion of atrial flutter with PVCs or aberrant conduction. 129/min. In the next EKG, most suggestive of atrial fibrillation but could still be flutter at 136/Min. Imaging Radiologist's impression: Impressions Chest X-Ray 02/27/24 12:30 IMPRESSION: Findings as above. Electronically signed by: Cristiano Kim MD 02/27/2024 03:47 PM EDT RP Chest CT 02/27/24 15:08 IMPRESSION: Limited by motion. Severe emphysema. Debris within dependent lower lobe bronchi, right worse than left. Patchy bibasilar dependent airspace disease suggesting infiltrates and/or atelectasis, right worse than left. Cannot entirely exclude aspiration pneumonia. Suspect trace right pleural fluid. Additional findings, as above. Electronically signed by: Cristiano Kim MD 02/27/2024 04:44 PM EDT RP Assessment and Plan (1) Atrial flutter with rapid ventricular response: Status: Acute (2) Acute on chronic hypoxic respiratory failure: Status: Acute Plan Last cardiology note from [facility] reviewed. Noted to have paroxysmal atrial fibrillation, anemia and history of GI bleeding, oxygen-dependent emphysema as well as nosebleeds. Per last echocardiogram in their system, LVEF 55-60% from 2020. In the echocardiogram from this admission, LVEF of 65-70% with pseudonormal filling pattern and calcific mitral/aortic valve findings. Overall, COPD exacerbation, respiratory failure, atrial flutter/fibrillation with rapid rate. Agree with IV diltiazem drip for the time being. Considering her comorbidities, frailty, age, guarded prognosis. With anticoagulation, there is clearly increased bleeding risk from frailty and low body weight. This will need to be weighed against the risk of stroke. Per outpatient cardiology notes, it was felt that she can continue Pradaxa 75 mg twice a day but if any recurrent bleeding, will need to re-evaluate risk/benefit and also not felt to be a candidate for Watchman. Discussed with Dr. Red. Discussed with family at the bedside. Will follow with you. Procedures Date of Service Date of Service: 02/28/24
--- NOTE | 2024-02-28 10:42 | MHC.CM.PN ---
CM MET WITH PT AND DAUGHTER/HCP AT BEDSIDE TO DISCUSS DC PLANNING THEY REPORT PT WILL NOT BE WILLING TO GO TO STR PER DISCUSSION, REFERRALS WILL BE MADE TO [facility] AND [facility] THEY UNDERSTAND SERVICES FROM [facility] WOULD NOT BE AVAILABLE IMMEDIATELY UPON DC REFERRALS WERE ALSO MADE TO STR IN THE EVENT PT IS TOO DE-CONDITIONED TO GO HOME AT DC PER DISCUSSION, THIS WILL BE REASSESSED WHEN PT IS NEAR DC
[2024-02-28] MEDS: DEXTROSE 5% IV ×2 (10:55→22:52)
[2024-02-28] MEDS: ACYCLOVIR SODIUM IV ×2 (10:55→22:52)
[2024-02-28] MEDS: methylPREDNISolone Sod Succ 40 MG/ML VIAL IVPUSH ×2 (10:56→22:52)
--- NOTE | 2024-02-28 11:38 | P.PNIM_ITS ---
Subjective Subjective Date of Service: 02/28/24 Interval History: sob Review of Systems she seems somewhat more awake sob also little improving denies chest pain Physical Exam 2 Vital Signs: Vital Signs: Last Vital Signs Temp 96.8 F 02/28/24 07:35 Pulse 98 02/28/24 07:58 Resp 22 H 02/28/24 07:58 BP 137/65 02/28/24 07:35 Pulse Ox 93 02/28/24 07:35 O2 Del Method Oxymask 02/28/24 07:35 O2 Flow Rate 4 02/28/24 07:35 Oxygen Flow Rate 2 02/24/24 04:27 BMI result Body Mass Index 16.9 Appearance: awake , sob cvs: irregular rythem, [id number] . res: air entry dimished and has b/l exp wheezing abd: no rebound or guarding ,nt, bs present. ext pulses present , no cyanosis . neuro: nonfocal. Objective Data Active Medications Acetaminophen (Acetaminophen 325 Mg Tablet) 975 mg PO Q4H [facility] Last Admin: 02/28/24 08:35 Dose: 975 mg Documented By: LATISHA Atorvastatin Calcium (Atorvastatin Calcium 10 Mg Tablet) 10 mg PO DAILY [facility] Last Admin: 02/28/24 08:37 Dose: 10 mg Documented By: LATISHA Calamine (Calamine/Zinc Oxide Lotion 177 Ml Bottle) 1 appl TOPICAL Q3H PRN; Protocol PRN Reason: Rash Calcium Carbonate (Calcium Carbonate 750 Mg Tab.Chew) 750 mg PO Q4H PRN PRN Reason: Heartburn Enoxaparin Sodium (Enoxaparin Sodium 30 Mg/0.3 Ml Syringe) 30 mg SUBCUT Q12H [facility] Last Admin: 02/28/24 08:38 Dose: 30 mg Documented By: LATISHA Escitalopram Oxalate (Escitalopram Oxalate 10 Mg Tablet) 10 mg PO DAILY [facility] Last Admin: 02/28/24 08:37 Dose: 10 mg Documented By: LATISHA Gabapentin (Gabapentin 100 Mg Capsule) 100 mg PO TID [facility] Last Admin: 02/28/24 08:37 Dose: 100 mg Documented By: LATISHA Guaifenesin/Dextromethorphan (Guaifenesin Dm 200/20/10 Ml 10 Ml Syrup) 10 ml PO Q6H PRN PRN Reason: Cough Diltiazem HCl 125 mg/ Sodium (Chloride) 125 mls @ 0 mls/hr IVCONT .Q0M [facility]; Protocol Last Titration: 02/28/24 11:30 Dose: 10 mg/hr, 10 mls/hr Documented By: SAILAJA Acyclovir Sodium 450 mg/ (Dextrose) 109 mls @ 110.008 mls/hr IV Q12H [facility] Last Admin: 02/28/24 10:55 Dose: 109 mls/hr Documented By: LATISHA Ceftriaxone Sodium 1 gm/ (Sodium Chloride) 50 mls @ 100 mls/hr IV Q24H [facility] Metronidazole (Flagyl) 500 mg in 100 mls @ 100 mls/hr IV Q8H [facility] Levalbuterol HCl (Levalbuterol Hcl 1.25 Mg/3 Ml Vial.Neb) 1.25 mg INHALE RQ4H WHILE AWAKE [facility] Last Admin: 02/28/24 11:27 Dose: Not Given Documented By: SUGAR Non-Admin Reason: Elevated Heart Rate Loratadine (Loratadine 10 Mg Tablet) 10 mg PO DAILY [facility] Last Admin: 02/28/24 08:37 Dose: 10 mg Documented By: LATISHA Lorazepam (Lorazepam 0.5 Mg Tablet) 0.5 mg PO BID PRN PRN Reason: Anxiety Last Admin: 02/26/24 16:11 Dose: 0.5 mg Documented By: BRANDIN Magnesium Hydroxide (Milk Of Magnesia 30 Ml Oral.Susp) 30 ml PO DAILY PRN PRN Reason: Constipation Megestrol Acetate (Megestrol Acetate 20 Mg Tablet) 10 mg PO BID [facility] Last Admin: 02/28/24 08:37 Dose: 10 mg Documented By: LATISHA Melatonin (Melatonin 3 Mg Tablet) 6 mg PO BEDTIME PRN PRN Reason: Insomnia Methylprednisolone Sodium Succinate (Methylprednisolone Sod Succ 40 Mg/Ml Vial) 40 mg IVPUSH Q12H [facility] Last Admin: 02/28/24 10:56 Dose: 40 mg Documented By: LATISHA Omeprazole (Omeprazole 20 Mg Capsule.Dr) 20 mg PO DAILY@0630 [facility] Last Admin: 02/28/24 05:31 Dose: Not Given Documented By: TARIQ Non-Admin Reason: NPO Ondansetron HCl (Ondansetron Hcl 4 Mg/2 Ml Vial) 4 mg IVPUSH Q8H PRN PRN Reason: Nausea and Vomiting Potassium Chloride (Potassium Chloride Er 20 Meq Tab.Er.Prt) 20 meq PO DAILY [facility] Last Admin: 02/28/24 11:02 Dose: Not Given Documented By: SAILAJA Non-Admin Reason: unable to crush Roflumilast (Roflumilast 500 Mcg Tablet) 500 mcg PO DAILY [facility] Last Admin: 02/28/24 08:37 Dose: 500 mcg Documented By: LATISHA Sodium Chloride (0.9 % Sodium Chloride Flush 3 Ml Syringe) 3 ml IVFLUSH QSHIFT [facility] Last Admin: 02/28/24 08:30 Dose: 3 ml Documented By: LATISHA Labs 02/27/24 12:47 02/25/24 05:20 Labs: Laboratory Results - last 24 hr 02/27/24 02/27/24 02/27/24 12:47 13:04 16:56 MCV 102.1 H MCH 31.5 MCHC 30.9 L RDW 12.9 Plt Count 278 D MPV 9.1 L Absolute Nucleated RBC 0.000 Nucleated RBC % (auto) 0.0 O2 Saturation 99.0 ABG pH at Pt Temp 7.37 ABG pCO2 at Pt Temp 74 H* ABG pO2 at Pt Temp 113 H ABG HCO3 43 H ABG Base Excess (Actual) 15.6 VBG pH 7.50 H VBG pCO2 55 VBG pO2 215 VBG HCO3 43 H VBG O2 Saturation 100.0 VBG Base Excess 17.9 B-Natriuretic Peptide 207 H Assessment and Plan (1) Atrial flutter with rapid ventricular response: Status: Acute (2) Acute on chronic hypoxic respiratory failure: Status: Acute Assessment and Plan: 79-year-old female with a PMH significant for?paroxysmal AFib on Pradaxa, HTN, HLD, COPD on chronic 2L NC, GERD, chronic lower back pain, and anxiety/depression who presents to the ED from home with increased SOB, lethargy, and confusion since this morning. Pt will be admitted to the hospital for treatment and further evaluation of acute on chronic hypoxemic and hypercarbic respiratory failure in the setting of acute COPD exacerbation. 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 hold metoprolol and cardizem drip for now titrate for hr 100-110 cardiology eval noted -continue cardizem drip . 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 ongoing hospitalization of?acute on chronic hypoxemic and hypercarbic respiratory failure in setting of acute COPD exacerbation , arequiring administration of IV steroids, breathing treatments, and increased oxygen demand.aflutter -needs iv cardizemdrip. tele monitering. patient is dnr/dni d/w her daughter overall prognosis seems poor. Quality Stroke Does the patient have a stroke diagnosis?: No VTE Prior VTE?: No VTE Risk Level:: Medical - moderate - high VTE Device Contraindication: Treatment Not Indicated VTE Drug Contraindication: N/A - Med Ordered
--- NOTE | 2024-02-28 11:50 | P.CONPL_ITS ---
History of Present Illness History of Present Illness Consult date: 02/28/24 Chief complaint: COPD exacerbation Narrative: 79-year-old lady, former 40-50 pack-year smoker, quit approximately 10 years prior, with underlying history of severe COPD on 2 L supplemental oxygen, followed by Dr. Pathak hospitalized with worsening dyspnea secondary to what appears to be exacerbation of underlying COPD and also pulmonary aspiration. Patient treated with empiric antibiotics, systemic glucocorticoids, nebulized bronchodilators with significant improvement, now appears to be close to her baseline. She does have significant recent weight loss that appears to be related to underlying high energy cost of breathing with underlying severe COPD. Review of Systems 2 Constitutional: Constitutional: Denies daytime sleepiness, Denies excessive sweating, Denies fatigue, Denies fever(s), Denies lethargy, Denies malaise, Denies night sweats, Denies snoring and Reports weight loss Eyes: Eyes: Denies blurry vision and Denies itchy eyes ENT: Denies nasal congestion, Denies post nasal drip, Denies sinus pain, Denies sinus pressure and Denies other ( Thrush) Cardiovascular: Cardiovascular: Denies chest pain, Denies pedal edema, Denies dyspnea, Reports dyspnea on exertion, Denies orthopnea and Denies paroxysmal nocturnal dyspnea Respiratory: Respiratory: Reports cough, Denies hemoptysis, Denies excessive phlegm production, Denies dyspnea, Reports dyspnea on exertion, Denies snoring and Denies wheezing Gastrointestinal: Gastrointestinal: Denies abdominal pain and Denies heartburn Musculoskeletal: Musculoskeletal: Denies myalgias, Denies arthralgias and Denies joint swelling Integumentary/Breasts: Skin/Breast: Denies rash Neurologic: Denies memory loss and Denies seizure-like activity Psychiatric: Psychiatric: Denies abnormal sleep pattern, Denies anxiety and Denies memory loss Endocrine: Endocrine: Denies excessive sweating, Denies fatigue and Denies heat intolerance Hematologic/Lymphatic: Hematologic/Lymphatic: Denies easy bruising Allergic/Immunologic: Allergic/Immunologic: Denies itchy eyes, Denies seasonal rhinorrhea and Denies wheezing PMFSH Past Medical History Medical History COVID-19 vaccine administered Arthritis GERD (gastroesophageal reflux disease) Depression Oxygen dependent COPD (chronic obstructive pulmonary disease) Arrhythmia HTN (hypertension) Surgical History Surgical History Hx of appendectomy H/O colonoscopy Social History Social History Household Members: Family Housing: House Are you a primary ambulatory care nurse to a significant other at home: No Do you presently have visiting nurse or other home services: No Alcohol intake: never Patient Tobacco Use Status: Former Tobacco user Tobacco use type: Cigarette Smoked in Last 30 Days: No e-Cigarette/Vaping Use: Never Used Second Hand Smoke Exposure: No Use of substances other than those prescribed or required for medical reasons: No Currently Displaying Signs/Symptoms of Drug Intoxication Withdrawal: No Do you feel safe in your current relationship?: No Current Relationship Is there a partner from a previous relationship who is making you feel unsafe now?: No Are you made to feel afraid or neglected: No Advance Directives: Yes Advance Directives Information Provided: Yes Advance Directives on File: No Advance Directives Date on File: 02/24/24 Do you have a plan to hurt others: No Plan Nutrition Risks: No Nutritional Risk Patient : No service: No Current occupational status: retired Current occupational exposures/hazards: No Hearing needs: No Meds Allergies Allergy/AdvReac Type Severity Reaction Status Date / Time pantoprazole Allergy Intermediate mouth le Verified 02/24/24 04:34 Penicillins Allergy Intermediate Itching Verified 02/24/24 04:34 Active Medications: Current Medications Acetaminophen (Acetaminophen 325 Mg Tablet) 975 mg PO Q4H [facility] Last Admin: 02/28/24 08:35 Dose: 975 mg Atorvastatin Calcium (Atorvastatin Calcium 10 Mg Tablet) 10 mg PO DAILY [facility] Last Admin: 02/28/24 08:37 Dose: 10 mg Calamine (Calamine/Zinc Oxide Lotion 177 Ml Bottle) 1 appl TOPICAL Q3H PRN; Protocol PRN Reason: Rash Calcium Carbonate (Calcium Carbonate 750 Mg Tab.Chew) 750 mg PO Q4H PRN PRN Reason: Heartburn Enoxaparin Sodium (Enoxaparin Sodium 30 Mg/0.3 Ml Syringe) 30 mg SUBCUT Q12H [facility] Last Admin: 02/28/24 08:38 Dose: 30 mg Escitalopram Oxalate (Escitalopram Oxalate 10 Mg Tablet) 10 mg PO DAILY [facility] Last Admin: 02/28/24 08:37 Dose: 10 mg Gabapentin (Gabapentin 100 Mg Capsule) 100 mg PO TID [facility] Last Admin: 02/28/24 08:37 Dose: 100 mg Guaifenesin/Dextromethorphan (Guaifenesin Dm 200/20/10 Ml 10 Ml Syrup) 10 ml PO Q6H PRN PRN Reason: Cough Diltiazem HCl 125 mg/ Sodium (Chloride) 125 mls @ 0 mls/hr IVCONT .Q0M [facility]; Protocol Last Titration: 02/28/24 11:30 Dose: 10 mg/hr, 10 mls/hr Acyclovir Sodium 450 mg/ (Dextrose) 109 mls @ 110.008 mls/hr IV Q12H [facility] Last Admin: 02/28/24 10:55 Dose: 109 mls/hr Ceftriaxone Sodium 1 gm/ (Sodium Chloride) 50 mls @ 100 mls/hr IV Q24H [facility] Metronidazole (Flagyl) 500 mg in 100 mls @ 100 mls/hr IV Q8H [facility] Levalbuterol HCl (Levalbuterol Hcl 1.25 Mg/3 Ml Vial.Neb) 1.25 mg INHALE RQ4H WHILE AWAKE [facility] Last Admin: 02/28/24 11:27 Dose: Not Given Loratadine (Loratadine 10 Mg Tablet) 10 mg PO DAILY [facility] Last Admin: 02/28/24 08:37 Dose: 10 mg Lorazepam (Lorazepam 0.5 Mg Tablet) 0.5 mg PO BID PRN PRN Reason: Anxiety Last Admin: 02/26/24 16:11 Dose: 0.5 mg Magnesium Hydroxide (Milk Of Magnesia 30 Ml Oral.Susp) 30 ml PO DAILY PRN PRN Reason: Constipation Megestrol Acetate (Megestrol Acetate 20 Mg Tablet) 10 mg PO BID [facility] Last Admin: 02/28/24 08:37 Dose: 10 mg Melatonin (Melatonin 3 Mg Tablet) 6 mg PO BEDTIME PRN PRN Reason: Insomnia Methylprednisolone Sodium Succinate (Methylprednisolone Sod Succ 40 Mg/Ml Vial) 40 mg IVPUSH Q12H [facility] Last Admin: 02/28/24 10:56 Dose: 40 mg Omeprazole (Omeprazole 20 Mg Capsule.Dr) 20 mg PO DAILY@0630 [facility] Last Admin: 02/28/24 05:31 Dose: Not Given Ondansetron HCl (Ondansetron Hcl 4 Mg/2 Ml Vial) 4 mg IVPUSH Q8H PRN PRN Reason: Nausea and Vomiting Potassium Chloride (Potassium Chloride Er 20 Meq Tab.Er.Prt) 20 meq PO DAILY [facility] Last Admin: 02/28/24 11:02 Dose: Not Given Roflumilast (Roflumilast 500 Mcg Tablet) 500 mcg PO DAILY [facility] Last Admin: 02/28/24 08:37 Dose: 500 mcg Sodium Chloride (0.9 % Sodium Chloride Flush 3 Ml Syringe) 3 ml IVFLUSH QSHIFT [facility] Last Admin: 02/28/24 08:30 Dose: 3 ml Home Medications ?Medication ?Instructions ?Recorded ?Confirmed ?Last Taken ?Type albuterol sulfate 2.5 mg/3 mL 1 vial inhalation Q6H PRN wheezing 12/18/20 02/24/24 02/23/24 History (0.083 %) solution for nebulization dabigatran etexilate 150 mg 1 cap PO BID 12/18/20 02/24/24 02/23/24 History capsule (Pradaxa) ipratropium 20 mcg-albuterol 100 1 puff PO QID 12/18/20 02/24/24 02/23/24 History mcg/actuation mist for inhalation (Combivent Respimat) roflumilast 500 mcg tablet 500 mcg PO DAILY 12/18/20 02/24/24 Unknown History (Daliresp) loratadine 10 mg tablet (Allergy 10 mg PO DAILY 10/27/22 02/24/24 02/23/24 History Relief (loratadine)) amlodipine 5 mg tablet 5 mg PO DAILY 02/24/24 02/24/24 02/23/24 History formoterol fumarate 20 mcg/2 mL 2 ml inhalation BID 02/24/24 02/24/24 02/23/24 History solution for nebulization lansoprazole 30 mg capsule,delayed 30 mg PO DAILY@0630 02/24/24 02/24/24 Unknown History release Physical Exam 2 Vital Signs: Vital Signs: Last Vital Signs Temp 96.8 F 02/28/24 07:35 Pulse 98 02/28/24 07:58 Resp 22 H 02/28/24 07:58 BP 137/65 02/28/24 07:35 Pulse Ox 93 02/28/24 07:35 O2 Del Method Oxymask 02/28/24 07:35 O2 Flow Rate 4 02/28/24 07:35 Oxygen Flow Rate 2 02/24/24 04:27 BMI result Body Mass Index 16.9 Const: General: no acute distress and alert Nutritional Appearance: m alnourished Orientation/consciousness: Other orientation findings ( oriented) HEENT: Head: Yes atraumatic Eyes: General: appearance normal, both eyes and all related structures S clerae: sclerae normal EOM: EOMs intact bilaterally Neck: Neck: Yes supple Lymphatic: no lymphadenopathy noted Resp: Effort & Inspection: normal respiratory effort and no use of accessory muscles Auscultation: clear to auscultation bilaterally Cardio: Rate: regular rate Rhythm: regular rhythm Heart sounds: no gallops, no murmurs and no rubs Skin: General skin exam: other ( warm) Extrem: General: No clubbing, No cyanosis and No edema Results Laboratory Findings 02/27/24 12:47 02/25/24 05:20 Abnormal lab findings: Abnormal Labs 02/24/24 02/24/24 02/24/24 05:08 06:57 07:49 WBC 17.1 H RBC 3.29 L Hgb 10.4 L Hct 32.0 L MCV MCHC MPV 9.0 L Immature Gran % (Auto) 0.5 H Neut % (Auto) 93.3 H Lymph % (Auto) 2.5 L Lymph # (Auto) 0.4 L Abs Immat Gran (auto) 0.09 H Absolute Neuts (auto) 16.0 H ABG pCO2 at Pt Temp ABG pO2 at Pt Temp ABG HCO3 VBG pH VBG HCO3 Sodium 133 L Chloride 88 L Carbon Dioxide 37 H BUN 20 H Random Glucose 125 H Calcium 10.4 H Troponin I High Sens 22.7 H 21.6 H B-Natriuretic Peptide 220 H Urine Protein 300 (3+) H Urine Blood Moderate (2+) H Urine RBC 11-20 H 02/24/24 02/24/24 02/25/24 07:55 12:39 05:20 WBC 12.7 H RBC 3.18 L Hgb 9.8 L Hct 31.4 L MCV 98.7 H MCHC MPV Immature Gran % (Auto) Neut % (Auto) Lymph % (Auto) Lymph # (Auto) Abs Immat Gran (auto) Absolute Neuts (auto) ABG pCO2 at Pt Temp ABG pO2 at Pt Temp ABG HCO3 VBG pH 7.29 L VBG HCO3 33 H 38 H Sodium Chloride 91 L Carbon Dioxide 37 H BUN 18 H Random Glucose Calcium Troponin I High Sens B-Natriuretic Peptide Urine Protein Urine Blood Urine RBC 02/27/24 02/27/24 02/27/24 12:47 13:04 16:56 WBC 17.2 H RBC 3.36 L Hgb 10.6 L Hct 34.3 L MCV 102.1 H MCHC 30.9 L MPV 9.1 L Immature Gran % (Auto) Neut % (Auto) Lymph % (Auto) Lymph # (Auto) Abs Immat Gran (auto) Absolute Neuts (auto) ABG pCO2 at Pt Temp 74 H* ABG pO2 at Pt Temp 113 H ABG HCO3 43 H VBG pH 7.50 H VBG HCO3 43 H Sodium Chloride Carbon Dioxide BUN Random Glucose Calcium Troponin I High Sens B-Natriuretic Peptide 207 H Urine Protein Urine Blood Urine RBC Microbiology: Microbiology 02/24/24 06:15 Blood - Venous Blood Culture - Preliminary No growth after 48 hours. 02/24/24 06:15 Blood - Venous Blood Culture - Preliminary No growth after 48 hours. Assessment and Plan (1) Acute on chronic hypoxic respiratory failure: Status: Acute (2) Dysphagia: Status: Acute (3) COPD exacerbation: Status: Acute Plan Impression: 79-year-old lady with underlying severe COPD on supplemental oxygen at 2 L and pulmonary cachexia admitted with acute on chronic hypoxic respiratory failure secondary to COPD exacerbation and pulmonary aspiration, now improved essentially to baseline. Recommendations: Agree with current empiric therapeutic regimen with the exception of consideration of narrowing antibiotic regimen to ceftriaxone/azithromycin. Patient would also benefit from speech/swallowing evaluation and nutrition consult. Start Trelegy and DuoNebs every 6 hours when awake. Taper off systemic glucocorticoids. Procedures Date of Service Date of Service: 02/28/24
[2024-02-28 12:11] LABS: Hematocrit 32.7 % (37.0-47.0); Hemoglobin 10.1 g/dl (12.0-16.0); Mean Corpuscular HGB Conc 30.9 g/dl (31.0-35.0); Mean Corpuscular Hemoglobin 31.5 pg (27.0-33.0); Mean Corpuscular Volume 101.9 fL (80.0-98.0); Mean Platelet Volume 8.9 fL (9.4-12.3); Platelet Count 235 X10*3/uL (160-400); Red Blood Count 3.21 X10*6/uL (4.20-5.50); Red Cell Distribution Width 12.7 % (11.0-16.0); White Blood Count 17.3 X10*3/uL (4.8-10.8)
[2024-02-28 12:27] LABS: Blood Urea Nitrogen 39 mg/dL (9-16); Calcium 9.6 mg/dL (8.4-10.2); Creatinine Clr Calc Pharmacy 30.5; Estimated Glomerular Filt Rate > 60; Glucose Random 222 mg/dL (60-115)
[2024-02-28 12:40] LABS: Anion Gap 13 (12-20); Carbon Dioxide 38 mmol/L (22-29); Chloride 90 mmol/L (96-108); Potassium 4.3 mmol/L (3.3-5.1); Sodium 137 mmol/L (135-145)
[2024-02-28] MEDS: cefTRIAXone sodium 1 GM in 0.9 % Sodium Chloride 50 ML IV (12:45)
[2024-02-28] MEDS: dilTIAZem HCL 125 MG in 0.9 % Sodium Chloride 100 ML 10 MG IVCONT (13:46)
[2024-02-28] MEDS: metroNIDAZOLE/NS 500 MG/100 ML PIGGYBACK 100 MG IV ×2 (13:47→20:45)
--- NOTE | 2024-02-28 14:18 | MHC.SL.SWA ---
Speech Pathologist Impression: Moderate pharyngeal dysphagia Risk of Aspiration Due to: Medically Fragile History of Pneumonia Poor PO Intake Weak Cough Dysphasia Diet Status: Puree diet with thin liquids Liquid Consistency and Strategies for Safe Swallow: Liquid Intake Recommendation: Thin Liquid Intake Strategies: Small Sips Double Swallow Solid Food Consistency: Dietary Recommendations: Pureed (NDD1) Additional Modifications to Solid Foods: Oral Medication Intake: Crushed with Puree Please contact the pharmacy regarding appropriate crushable or liquid drug formulations that are available whenever modified delivery is recommended. Compensatory Strategies and Precautions to be Taken for Safe Swallow: Sitting Upright (90 deg) Double Swallow Liquids from Straw Small Bites and Sips Alternate Liquids/Solids Rate of Ingestion Change Supervision While Eating and Drinking for Safe Swallow: Intermittent Supervision Foods to Avoid: Swallowing Recommended Treatments: Compens. Strategy Educat. Recommendation for Speech: Inpatient Speech Therapy Modified Barium Swallow Study - Inpatient Modified Barium Swallow Study - Outpatient Comment: Recc MBSS to visualize physiological function of swallow and determine safest diet, most appropriate compensatory strategies. Assess for or rule out silent aspiration.. Frequency/Duration: Daily M-F Date Range for Service Req: Timeline to reassess: PRN Medical Assembly Clinican/Clinical Fellow: No Supervisory Statement: I have reviewed and agree with the student/clinical fellow's documentation: N/A Speech Language Pathologist: Ingrid Alvarado M.S. CCC-SYSTEMS ADMINISTRATOR
--- NOTE | 2024-02-28 14:29 | P.CDIM_ITS ---
PROVIDER RESPONSE TEXT: To clarify, the appropriate diagnosis supported by the clinical indicators: Moderate QUERY TEXT: PHYSICIAN'S DOCUMENTATION REQUEST Date of Query: 02/28/2024 08:01 AM EDT Patient Name: STEFAN MIJARES Admit Date: 02/24/2024 Dear Marianela Red MD, A review of the medical record indicates additional documentation may be needed. Please review below and update the documentation accordingly. Documentation includes the diagnosis of malnutrition in the Clinical Nutrition Assessment 02/25/24. Julian soriano is moderately malnourished with mildly depleted subcutaneous fat and muscle mass with 12% nonsignificant weight los s x1 year with chronic poor po Additional clinical indicators from the record include: HT 4'10 WT 36.7 kg BMI 16.9 If possible, please provide additional specificity regarding the severity of the malnutrition using t he above information: Mild Moderate Severe Other (explain) Clinically unable to determine (explain) Thank you, Ethel Can RN Use of terms such as suspected, likely, concern for, or probable (associated with a specific diagnosi s that is being evaluated, monitored, or treated as if it exists) are acceptable and can be coded in the inpatient se tting, when documented at the time of discharge. Please use your independent medical judgment in providing your response. THIS QUERY IS PART OF THE PERMANENT MEDICAL RECORD
[2024-02-28] MEDS: Ipratropium Bromide 0.5 MG/2.5 ML SOLUTION INHALE ×2 (14:35→19:40)
[2024-02-28] MEDS: dilTIAZem HCL 30 MG TABLET PO (20:47)
[2024-02-29] VITALS (11 sets, daily range): BP systolic 133–160; BP diastolic 58–88; PULSE 86–104; RESP 20–24; TEMP 36.1–36.7; O2SAT 91–96
--- NOTE | 2024-02-29 00:43 | PC.NURSE ---
Cardizem gtt stopped at 2044 per , po cardizem given. HR at this time sustaining 90- low 100's, md aware. SR noted on monitor at 2144 notified.
[2024-02-29] MEDS: dilTIAZem HCL 125 MG in 0.9 % Sodium Chloride 100 ML 10 MG IVCONT (02:43)
--- NOTE | 2024-02-29 02:45 | MHC.PIE ---
P.AFIB/FLUTTER I.PT BACK IN AFIB/FLUTTER HR 125,BP 157/69.DR STEEL UPDATED.ORDER TO RESUME CARDIZEM DRIP AT 10MG/HR GIVEN.PT UPDATED AND CARDIZEM RESUMED. E.CURRENTLY AFLUTTER,HR 90'S,CARDIZEM CONT AT 10MG/HR.CONT TO MONITOR.
[2024-02-29] MEDS: Acetaminophen 325 MG TABLET 975 MG PO ×4 (04:10→17:18)
[2024-02-29] MEDS: metroNIDAZOLE/NS 500 MG/100 ML PIGGYBACK 100 MG IV ×3 (04:16→21:00)
[2024-02-29] MEDS: Omeprazole 20 MG CAPSULE.DR PO (05:30)
[2024-02-29 06:19] LABS: Hematocrit 33.5 % (37.0-47.0); Hemoglobin 10.6 g/dl (12.0-16.0); Mean Corpuscular HGB Conc 31.6 g/dl (31.0-35.0); Mean Corpuscular Hemoglobin 31.8 pg (27.0-33.0); Mean Corpuscular Volume 100.6 fL (80.0-98.0); Platelet Count 248 X10*3/uL (160-400); Red Blood Count 3.33 X10*6/uL (4.20-5.50); Red Cell Distribution Width 12.5 % (11.0-16.0); White Blood Count 17.4 X10*3/uL (4.8-10.8)
[2024-02-29] MEDS: Fluticasone/Umeclidinium/Vilanterol 200/62.5/25 BLST.W.DEV 1 PUFF INHALE (08:12)
[2024-02-29] MEDS: Ipratropium Bromide 0.5 MG/2.5 ML SOLUTION INHALE ×3 (08:14→20:59)
[2024-02-29] MEDS: Roflumilast 500 MCG TABLET PO (08:56)
[2024-02-29] MEDS: dilTIAZem HCL 30 MG TABLET PO ×4 (08:56→21:07)
[2024-02-29] MEDS: Escitalopram Oxalate 10 MG TABLET PO (08:57)
[2024-02-29] MEDS: Atorvastatin Calcium 10 MG TABLET PO (08:57)
[2024-02-29] MEDS: Loratadine 10 MG TABLET PO (08:57)
[2024-02-29] MEDS: Potassium Chloride ER 20 MEQ TAB.ER.PRT PO (08:57)
[2024-02-29] MEDS: Gabapentin 100 MG CAPSULE PO ×3 (08:57→21:05)
[2024-02-29] MEDS: Megestrol Acetate 20 MG TABLET 10 MG PO ×2 (08:58→21:06)
[2024-02-29] MEDS: methylPREDNISolone Sod Succ 40 MG/ML VIAL IVPUSH ×2 (08:58→22:37)
[2024-02-29] MEDS: 0.9 % Sodium Chloride Flush 3 ML SYRINGE IVFLUSH ×3 (09:14→21:08)
[2024-02-29] MEDS: Enoxaparin Sodium 30 MG/0.3 ML SYRINGE SUBCUT ×2 (09:30→21:06)
[2024-02-29] MEDS: DEXTROSE 5% IV ×2 (09:30→21:08)
[2024-02-29] MEDS: ACYCLOVIR SODIUM IV ×2 (09:30→21:08)
--- NOTE | 2024-02-29 10:28 | PC.NURSE ---
Assumed care for this pt w current diltiazem gtt at 10mg/hr and HR 90s. instructions to be given PO diltiazem and stop the drip 2 hours after. 0942 This Rn helped pt w bedside commode where pt got elevated HR 170s-180s w sob on exertion on 3L NC 89%, denied chest pain. BP at the time was 144/65 PRATEEK. notified and instructed this RN to keep the drip running, current HR 110s-120s.
--- NOTE | 2024-02-29 10:39 | MHC.SPEECHCO ---
MBSS order received. Scheduled for 2pm. Radiology will arrange for transport. Rad techs notified about Shingles precautions.
[2024-02-29] MEDS: Digoxin 0.5 MG/2 ML AMPUL 0.25 MG IVPUSH ×2 (10:42→15:33)
[2024-02-29] MEDS: LORazepam 0.5 MG TABLET PO (10:42)
[2024-02-29] MEDS: cefTRIAXone sodium 1 GM in 0.9 % Sodium Chloride 50 ML IV (12:17)
--- NOTE | 2024-02-29 13:09 | P.PNIM_ITS ---
Subjective Subjective Date of Service: 02/29/24 Interval History: Overnight went into AFIB with RVR on cardizem drip frail and intermittent sob Physical Exam 2 Vital Signs: Vital Signs: Last Vital Signs Temp 97.0 F 02/29/24 11:41 Pulse 93 02/29/24 11:55 Resp 20 02/29/24 11:41 BP 133/60 02/29/24 11:55 Pulse Ox 92 02/29/24 11:55 O2 Del Method Nasal Cannula 02/29/24 11:41 O2 Flow Rate 3 02/29/24 11:41 Oxygen Flow Rate 2 02/24/24 04:27 BMI result Body Mass Index 16.9 Appearance: awake , sob cvs: irregular rythem, [id number] . res: air entry dimished and has b/l exp wheezing abd: no rebound or guarding ,nt, bs present. ext pulses present , no cyanosis . neuro: nonfocal. Objective Data Active Medications Acetaminophen (Acetaminophen 325 Mg Tablet) 975 mg PO Q4H [facility] Last Admin: 02/29/24 08:57 Dose: 975 mg Documented By: JEANNIE Atorvastatin Calcium (Atorvastatin Calcium 10 Mg Tablet) 10 mg PO DAILY [facility] Last Admin: 02/29/24 08:57 Dose: 10 mg Documented By: JEANNIE Calamine (Calamine/Zinc Oxide Lotion 177 Ml Bottle) 1 appl TOPICAL Q3H PRN; Protocol PRN Reason: Rash Calcium Carbonate (Calcium Carbonate 750 Mg Tab.Chew) 750 mg PO Q4H PRN PRN Reason: Heartburn Digoxin (Digoxin 0.5 Mg/2 Ml Ampul) 0.25 mg IVPUSH Q6H [facility]; Protocol Stop: 02/29/24 16:01 Last Admin: 02/29/24 10:42 Dose: 0.25 mg Documented By: JEANNIE Diltiazem HCl (Diltiazem Hcl 30 Mg Tablet) 30 mg PO QID [facility]; Protocol Last Admin: 02/29/24 08:56 Dose: 30 mg Documented By: JEANNIE Enoxaparin Sodium (Enoxaparin Sodium 30 Mg/0.3 Ml Syringe) 30 mg SUBCUT Q12H [facility] Last Admin: 02/29/24 09:30 Dose: 30 mg Documented By: JEANNIE Escitalopram Oxalate (Escitalopram Oxalate 10 Mg Tablet) 10 mg PO DAILY [facility] Last Admin: 02/29/24 08:57 Dose: 10 mg Documented By: JEANNIE Fluticasone/Umeclidinium/Vilanterol (Fluticasone/Umeclidinium/Vilanterol 200/62.5/25 Blst.W.Dev) 1 puff INHALE RDAILY [facility] Last Admin: 02/29/24 08:12 Dose: 1 puff Documented By: LINK Gabapentin (Gabapentin 100 Mg Capsule) 100 mg PO TID [facility] Last Admin: 02/29/24 08:57 Dose: 100 mg Documented By: JEANNIE Guaifenesin/Dextromethorphan (Guaifenesin Dm 200/20/10 Ml 10 Ml Syrup) 10 ml PO Q6H PRN PRN Reason: Cough Diltiazem HCl 125 mg/ Sodium (Chloride) 125 mls @ 0 mls/hr IVCONT .Q0M [facility]; Protocol Last Admin: 02/29/24 02:43 Dose: 10 mg/hr, 10 mls/hr Documented By: PATRICIA Acyclovir Sodium 450 mg/ (Dextrose) 109 mls @ 110.008 mls/hr IV Q12H [facility] Last Infusion: 02/29/24 10:30 Dose: Infused Documented By: JEANNIE Ceftriaxone Sodium 1 gm/ (Sodium Chloride) 50 mls @ 100 mls/hr IV Q24H [facility] Last Admin: 02/29/24 12:17 Dose: 100 mls/hr Documented By: JEANNIE Metronidazole (Flagyl) 500 mg in 100 mls @ 100 mls/hr IV Q8H [facility] Last Infusion: 02/29/24 05:21 Dose: Infused Documented By: PATRICIA Ipratropium [place] (Ipratropium [place] 0.5 Mg/2.5 Ml Solution) 0.5 mg INHALE RQ4H WHILE AWAKE [facility] Last Admin: 02/29/24 11:13 Dose: 0.5 mg Documented By: LINK Loratadine (Loratadine 10 Mg Tablet) 10 mg PO DAILY [facility] Last Admin: 02/29/24 08:57 Dose: 10 mg Documented By: JEANNIE Lorazepam (Lorazepam 0.5 Mg Tablet) 0.5 mg PO BID PRN PRN Reason: Anxiety Last Admin: 02/29/24 10:42 Dose: 0.5 mg Documented By: JEANNIE Magnesium Hydroxide (Milk Of Magnesia 30 Ml Oral.Susp) 30 ml PO DAILY PRN PRN Reason: Constipation Megestrol Acetate (Megestrol Acetate 20 Mg Tablet) 10 mg PO BID [facility] Last Admin: 02/29/24 08:58 Dose: 10 mg Documented By: JEANNIE Melatonin (Melatonin 3 Mg Tablet) 6 mg PO BEDTIME PRN PRN Reason: Insomnia Methylprednisolone Sodium Succinate (Methylprednisolone Sod Succ 40 Mg/Ml Vial) 40 mg IVPUSH Q12H [facility] Last Admin: 02/29/24 08:58 Dose: 40 mg Documented By: JEANNIE Omeprazole (Omeprazole 20 Mg Capsule.Dr) 20 mg PO DAILY@0630 [facility] Last Admin: 02/29/24 05:30 Dose: 20 mg Documented By: PATRICIA Ondansetron HCl (Ondansetron Hcl 4 Mg/2 Ml Vial) 4 mg IVPUSH Q8H PRN PRN Reason: Nausea and Vomiting Potassium Chloride (Potassium Chloride Er 20 Meq Tab.Er.Prt) 20 meq PO DAILY [facility] Last Admin: 02/29/24 08:57 Dose: 20 meq Documented By: JEANNIE Roflumilast (Roflumilast 500 Mcg Tablet) 500 mcg PO DAILY [facility] Last Admin: 02/29/24 08:56 Dose: 500 mcg Documented By: JEANNIE Sodium Chloride (0.9 % Sodium Chloride Flush 3 Ml Syringe) 3 ml IVFLUSH QSHIFT [facility] Last Admin: 02/29/24 09:14 Dose: 3 ml Documented By: JEANNIE Labs 02/29/24 06:06 02/28/24 11:46 Labs: Laboratory Results - last 24 hr 02/29/24 06:06 MCV 100.6 H MCH 31.8 MCHC 31.6 RDW 12.5 Plt Count 248 MPV 9.0 L Absolute Nucleated RBC 0.000 Nucleated RBC % (auto) 0.0 Microbiology Microbiology Results: Microbiology 02/24/24 06:15 Blood Culture - Final Blood - Venous No growth after 5 days. 02/24/24 06:15 Blood Culture - Final Blood - Venous No growth after 5 days. Assessment and Plan (1) Atrial flutter with rapid ventricular response: Status: Acute (2) Acute on chronic hypoxic respiratory failure: Status: Acute Assessment and Plan: 79/F PAF on Pradaxa, HTN, HLD, COPD on chronic 2L NC, GERD, chronic lower back pain, and anxiety/depression admitted for acute on chronic hypoxemic and hypercarbic respiratory failure in the setting of acute COPD exacerbation. Acute on chronic hypoxemic and hypercarbic respiratory failure in the setting COPD exacerbation and aspirational penumonia (02/27/24) -continue bronchodilators and steroid for copd Aspiration PNA -continue Ceftriaxone -modified barium swallow for asiraion Paroxysmal AFib with RVR -continue cardizem and transition to PO -dig loading -cardiology following HTN - amlodipine HLD -Continue statin Leukocytosis--d/t steroid Chronic lower back pain -Continue home analgesics Mood disorder -Continue home mood stabilizers Generalized weakness Worsening the past month Unable to ambulate at home this morning No reported falls PT evaluation possible moderate protein calorie malnutrtion : 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 Should be consider for hospice Quality Stroke Does the patient have a stroke diagnosis?: No VTE Prior VTE?: No VTE Risk Level:: Medical - moderate - high VTE Device Contraindication: Treatment Not Indicated VTE Drug Contraindication: N/A - Med Ordered
[2024-02-29] MEDS: dilTIAZem HCL 125 MG in 0.9 % Sodium Chloride 100 ML IVCONT (13:47)
--- NOTE | 2024-02-29 15:39 | MHC.CM.PN ---
This CM met with pts bella Trejo per her request. Per Maya, they are interested in hospice care and would like more information on their services. Per Maya, their agency preference is [facility], [facility] Hospice info session was provided to pts bella Trejo, who would like some time to discuss with the rest of the family. Hospice nurse Paulina called to provide an update to this CM, her direct number is ([phone]). Per [facility] nurse Paulina, they could order DME for her tomorrow and potentially admit pt in the home tomorrow afternoon. Plan will be for CM to follow up with pts family tomorrow morning to see if they would like to move forward with setting up hospice services.
--- NOTE | 2024-02-29 15:43 | PC.NURSE ---
per md order, cardizem gtt stopped at 1525, pt HR 90s, Aflutter, will cont to monitor
--- NOTE | 2024-02-29 16:16 | MHC.SL.MBSTD ---
Pt seen for MBSS today 02/29/24. Results are partial and inconclusive. Please see full report for further details under Patient Care. PACK ROOM OPERATOR will follow-up tomorrow.
[2024-03-01] VITALS (9 sets, daily range): BP systolic 133–167; BP diastolic 67–81; PULSE 92–123; RESP 20–28; TEMP 36.3–37; O2SAT 92–96
[2024-03-01] MEDS: Metoprolol Tartrate 5 MG/5 ML VIAL IVPUSH (03:59)
[2024-03-01] MEDS: metroNIDAZOLE/NS 500 MG/100 ML PIGGYBACK 100 MG IV ×3 (04:03→20:42)
[2024-03-01] MEDS: Omeprazole 20 MG CAPSULE.DR PO (05:36)
[2024-03-01 07:20] LABS: Hematocrit 36.7 % (37.0-47.0); Hemoglobin 11.7 g/dl (12.0-16.0); Mean Corpuscular HGB Conc 31.9 g/dl (31.0-35.0); Mean Corpuscular Hemoglobin 31.6 pg (27.0-33.0); Mean Corpuscular Volume 99.2 fL (80.0-98.0); Platelet Count 308 X10*3/uL (160-400); Red Cell Distribution Width 12.5 % (11.0-16.0); White Blood Count 26.7 X10*3/uL (4.8-10.8)
[2024-03-01] MEDS: Fluticasone/Umeclidinium/Vilanterol 200/62.5/25 BLST.W.DEV 1 PUFF INHALE (07:55)
[2024-03-01] MEDS: Ipratropium Bromide 0.5 MG/2.5 ML SOLUTION INHALE ×3 (07:55→15:46)
[2024-03-01] MEDS: Potassium Chloride ER 20 MEQ TAB.ER.PRT PO (08:50)
[2024-03-01] MEDS: Loratadine 10 MG TABLET PO (08:51)
[2024-03-01] MEDS: Roflumilast 500 MCG TABLET PO (08:51)
[2024-03-01] MEDS: Megestrol Acetate 20 MG TABLET 10 MG PO ×2 (08:51→20:44)
[2024-03-01] MEDS: Atorvastatin Calcium 10 MG TABLET PO (08:51)
[2024-03-01] MEDS: Acetaminophen 325 MG TABLET 975 MG PO ×3 (08:51→18:08)
[2024-03-01] MEDS: Escitalopram Oxalate 10 MG TABLET PO (08:51)
[2024-03-01] MEDS: Gabapentin 100 MG CAPSULE PO ×3 (08:51→20:43)
[2024-03-01] MEDS: dilTIAZem HCL 30 MG TABLET PO ×4 (08:51→20:43)
[2024-03-01] MEDS: Enoxaparin Sodium 30 MG/0.3 ML SYRINGE SUBCUT (08:52)
[2024-03-01] MEDS: methylPREDNISolone Sod Succ 40 MG/ML VIAL IVPUSH ×2 (08:52→22:47)
[2024-03-01] MEDS: 0.9 % Sodium Chloride Flush 3 ML SYRINGE IVFLUSH ×2 (08:53→22:48)
[2024-03-01] MEDS: DEXTROSE 5% IV ×2 (09:15→22:47)
[2024-03-01] MEDS: ACYCLOVIR SODIUM IV ×2 (09:15→22:47)
[2024-03-01] MEDS: cefTRIAXone sodium 1 GM in 0.9 % Sodium Chloride 50 ML IV (11:50)
--- NOTE | 2024-03-01 11:55 | MHC.SL.SWA ---
Speech Pathologist Impression: Dysphagia Nonspecific Risk of Aspiration Due to: Lethargy Medically Fragile Neurological Condition History of Pneumonia Poor PO Intake Reduced Cognition Weak Cough Dysphasia Diet Status: Treatment and education continue to be necessary in facilitating pt safety and dtr understanding of recommended diet, precautions, s/s to monitor and strategies to prevent aspiration. Liquid Consistency and Strategies for Safe Swallow: Liquid Intake Recommendation: Thin Liquid Intake Strategies: Small Sips Solid Food Consistency: Dietary Recommendations: Pureed (NDD1) Additional Modifications to Solid Foods: Oral Medication Intake: Crushed with Puree Please contact the pharmacy regarding appropriate crushable or liquid drug formulations that are available whenever modified delivery is recommended. Compensatory Strategies and Precautions to be Taken for Safe Swallow: Sitting Upright (90 deg) No Straw Liquids from Cup Small Bites and Sips Alternate Liquids/Solids Rate of Ingestion Change Oral Check Avoid Specific Foods Supervision While Eating and Drinking for Safe Swallow: Total Assistance (1:1) Foods to Avoid: Swallowing Recommended Treatments: Compens. Strategy Educat. Recommendation for Speech: Inpatient Speech Therapy Comment: Recommend follow-up at bedside to re-assess safest, least restrictive diet for disposition. Pt will need to be more awake and alert than at today's study. Frequency/Duration: Daily Date Range for Service Req: Admission Timeline to reassess: PRN Aerospace Technician Clinican/Clinical Fellow: No Supervisory Statement: I have reviewed and agree with the student/clinical fellow's documentation: N/A Speech Language Pathologist: Ingrid Alvarado M.S. CCC-TEST GRADER
--- NOTE | 2024-03-01 11:58 | MHC.CLN ---
F/U PT IS MODERATELY MALNOURISHED PO INTAKE 25% DIET RX; PUREED-APPROPRIATE WILL RE-START ENSURE BID AND MAGIC CUP TO INCREASE KCALS PT TAKES ENSURE AT HOME WELL. MONITOR PO INTAKE AND ENCOURAGE SUPPLEMENTS
--- NOTE | 2024-03-01 14:08 | P.PNIM_ITS ---
Subjective Subjective Date of Service: 03/01/24 Interval History: Still in AFIB with variable rate no sob at this time, continue to look very frail Physical Exam 2 Vital Signs: Vital Signs: Last Vital Signs Temp 97.9 F 03/01/24 11:17 Pulse 92 03/01/24 12:06 Resp 28 H 03/01/24 12:06 BP 152/81 H 03/01/24 11:17 Pulse Ox 92 03/01/24 11:17 O2 Del Method Nasal Cannula 03/01/24 11:17 O2 Flow Rate 2 03/01/24 11:17 Oxygen Flow Rate 2 02/24/24 04:27 BMI result Body Mass Index 16.9 Appearance: awake, no distress, frail looking cvs: irregular rythem, [id number] . res: air entry dimished and has b/l exp wheezing abd: no rebound or guarding ,nt, bs present. ext pulses present , no cyanosis . neuro: nonfocal. Objective Data Active Medications Acetaminophen (Acetaminophen 325 Mg Tablet) 975 mg PO Q4H [facility] Last Admin: 03/01/24 08:51 Dose: 975 mg Documented By: LATISHA Atorvastatin Calcium (Atorvastatin Calcium 10 Mg Tablet) 10 mg PO DAILY [facility] Last Admin: 03/01/24 08:51 Dose: 10 mg Documented By: LATISHA Calamine (Calamine/Zinc Oxide Lotion 177 Ml Bottle) 1 appl TOPICAL Q3H PRN; Protocol PRN Reason: Rash Calcium Carbonate (Calcium Carbonate 750 Mg Tab.Chew) 750 mg PO Q4H PRN PRN Reason: Heartburn Diltiazem HCl (Diltiazem Hcl 30 Mg Tablet) 30 mg PO QID [place]; Protocol Last Admin: 03/01/24 12:57 Dose: 30 mg Documented By: LATISHA Enoxaparin Sodium (Enoxaparin Sodium 30 Mg/0.3 Ml Syringe) 30 mg SUBCUT Q12H [facility] Last Admin: 03/01/24 08:52 Dose: 30 mg Documented By: LATISHA Escitalopram Oxalate (Escitalopram Oxalate 10 Mg Tablet) 10 mg PO DAILY [facility] Last Admin: 03/01/24 08:51 Dose: 10 mg Documented By: LATISHA Fluticasone/Umeclidinium/Vilanterol (Fluticasone/Umeclidinium/Vilanterol 200/62.5/25 Blst.W.Dev) 1 puff INHALE RDAILY [facility] Last Admin: 03/01/24 07:55 Dose: 1 puff Documented By: CEZAR Gabapentin (Gabapentin 100 Mg Capsule) 100 mg PO TID [facility] Last Admin: 03/01/24 08:51 Dose: 100 mg Documented By: LATISHA Guaifenesin/Dextromethorphan (Guaifenesin Dm 200/20/10 Ml 10 Ml Syrup) 10 ml PO Q6H PRN PRN Reason: Cough Diltiazem HCl 125 mg/ Sodium (Chloride) 125 mls @ 0 mls/hr IVCONT .Q0M [facility]; Protocol Last Titration: 02/29/24 15:25 Dose: 0 mg/hr, 0 mls/hr Documented By: JEANNIE Acyclovir Sodium 450 mg/ (Dextrose) 109 mls @ 110.008 mls/hr IV Q12H [facility] Last Infusion: 03/01/24 10:22 Dose: Infused Documented By: LATISHA Ceftriaxone Sodium 1 gm/ (Sodium Chloride) 50 mls @ 100 mls/hr IV Q24H [facility] Last Admin: 03/01/24 11:50 Dose: 100 mls/hr Documented By: LATISHA Metronidazole (Flagyl) 500 mg in 100 mls @ 100 mls/hr IV Q8H [facility] Last Infusion: 03/01/24 13:51 Dose: 0 mls/hr Documented By: LATISHA Ipratropium [place] (Ipratropium [place] 0.5 Mg/2.5 Ml Solution) 0.5 mg INHALE RQ4H WHILE AWAKE [facility] Last Admin: 03/01/24 12:06 Dose: 0.5 mg Documented By: AUSTIN Loratadine (Loratadine 10 Mg Tablet) 10 mg PO DAILY [facility] Last Admin: 03/01/24 08:51 Dose: 10 mg Documented By: LATISHA Lorazepam (Lorazepam 0.5 Mg Tablet) 0.5 mg PO BID PRN PRN Reason: Anxiety Last Admin: 02/29/24 10:42 Dose: 0.5 mg Documented By: JEANNIE Magnesium Hydroxide (Milk Of Magnesia 30 Ml Oral.Susp) 30 ml PO DAILY PRN PRN Reason: Constipation Megestrol Acetate (Megestrol Acetate 20 Mg Tablet) 10 mg PO BID [facility] Last Admin: 03/01/24 08:51 Dose: 10 mg Documented By: LATISHA Melatonin (Melatonin 3 Mg Tablet) 6 mg PO BEDTIME PRN PRN Reason: Insomnia Methylprednisolone Sodium Succinate (Methylprednisolone Sod Succ 40 Mg/Ml Vial) 40 mg IVPUSH Q12H [facility] Last Admin: 03/01/24 08:52 Dose: 40 mg Documented By: LATISHA Omeprazole (Omeprazole 20 Mg Capsule.Dr) 20 mg PO DAILY@0630 [facility] Last Admin: 03/01/24 05:36 Dose: 20 mg Documented By: DEJUAN Ondansetron HCl (Ondansetron Hcl 4 Mg/2 Ml Vial) 4 mg IVPUSH Q8H PRN PRN Reason: Nausea and Vomiting Potassium Chloride (Potassium Chloride Er 20 Meq Tab.Er.Prt) 20 meq PO DAILY [facility] Last Admin: 03/01/24 08:50 Dose: 20 meq Documented By: LATISHA Roflumilast (Roflumilast 500 Mcg Tablet) 500 mcg PO DAILY [facility] Last Admin: 03/01/24 08:51 Dose: 500 mcg Documented By: LATISHA Sodium Chloride (0.9 % Sodium Chloride Flush 3 Ml Syringe) 3 ml IVFLUSH QSHIFT [facility] Last Admin: 03/01/24 08:53 Dose: 3 ml Documented By: LATISHA Labs 03/01/24 06:39 02/28/24 11:46 Labs: Laboratory Results - last 24 hr 03/01/24 06:39 MCV 99.2 H MCH 31.6 MCHC 31.9 RDW 12.5 Plt Count 308 MPV 9.0 L Absolute Nucleated RBC 0.000 Nucleated RBC % (auto) 0.0 Assessment and Plan (1) Atrial flutter with rapid ventricular response: Status: Acute (2) Acute on chronic hypoxic respiratory failure: Status: Acute Assessment and Plan: 79/F PAF on Pradaxa, HTN, HLD, COPD on chronic 2L NC, GERD, chronic lower back pain, and anxiety/depression admitted for acute on chronic hypoxemic and hypercarbic respiratory failure in the setting of acute COPD exacerbation. Acute on chronic hypoxemic and hypercarbic respiratory failure in the setting COPD exacerbation and aspirational penumonia (02/27/24) -continue bronchodilators and steroid for copd Aspiration PNA -on Ceftriaxone + metronidazol, wbc going up, could be related to steroid, allergic to pen, change ceftriaxine to levaquin -could not complete barium study Paroxysmal AFib with RVR -continue cardizem and transition to PO -dig loading -cardiology following -on Lovenox, change to Pradaxa HTN - amlodipine HLD -Continue statin Leukocytosis--d/t steroid Chronic lower back pain -Continue home analgesics Mood disorder -Continue home mood stabilizers Generalized weakness Worsening the past month Unable to ambulate at home this morning No reported falls PT evaluation possible moderate protein calorie malnutrtion : executive search consultant iwona Full Code DVT Prophylaxis: pradaxa Should be consider for hospice Quality Stroke Does the patient have a stroke diagnosis?: No VTE Prior VTE?: No VTE Risk Level:: Medical - moderate - high VTE Device Contraindication: Treatment Not Indicated VTE Drug Contraindication: N/A - Med Ordered
[2024-03-01] MEDS: Digoxin 0.125 MG TABLET PO (14:27)
[2024-03-01] MEDS: levoFLOXacin/D5W 500 MG/100 ML PIGGYBACK 100 MG IV (14:46)
--- NOTE | 2024-03-01 15:07 | MHC.CM.PN ---
Addendum entered by Kellen Silveira 03/01/24 15:22: Bed offer received from [facility], pt and daughter updated and accept bed offer, they will pursue insurance auth. Original Note: EMR reviewed and per MD rounds, pt is medically cleared for discharge home with new hospice services. This CM coordinated with [facility] to arrange to have pt discharged home tomorrow 03/02. This CM received a phone call from hospice nurse Paulina to say that the pt is not ready to go home with hospice, and would like to transfer to [facility] for another opinion. This CM met with pt and her daughter Maya present at bedside to discuss the discharge plan. At this time, the pt is not ready to go home on hospice and would like to go to [facility] to give her one more chance of improving. This CM discussed STR preferences, and per pts daughter Maay, they would like a facility close to her in [place]. Referrals added, will await STR bed offer. [facility] updated. Hospitalist updated on change in discharge plans.
[2024-03-01] MEDS: Dabigatran Etexilate Mesylate 150 MG CAPSULE PO (20:43)
[2024-03-02] VITALS (13 sets, daily range): BP systolic 145–180; BP diastolic 58–78; PULSE 60–126; RESP 16–24; TEMP 36.1–36.6; O2SAT 91–97
[2024-03-02] MEDS: metroNIDAZOLE/NS 500 MG/100 ML PIGGYBACK 100 MG IV ×3 (05:10→20:52)
[2024-03-02] MEDS: Omeprazole 20 MG CAPSULE.DR PO (05:48)
[2024-03-02 07:50] LABS: Hematocrit 36.2 % (37.0-47.0); Hemoglobin 11.5 g/dl (12.0-16.0); Mean Corpuscular HGB Conc 31.8 g/dl (31.0-35.0); Mean Corpuscular Hemoglobin 31.4 pg (27.0-33.0); Mean Corpuscular Volume 98.9 fL (80.0-98.0); Mean Platelet Volume 9.2 fL (9.4-12.3); Platelet Count 276 X10*3/uL (160-400); Red Blood Count 3.66 X10*6/uL (4.20-5.50); Red Cell Distribution Width 12.5 % (11.0-16.0); White Blood Count 26.2 X10*3/uL (4.8-10.8)
[2024-03-02] MEDS: Fluticasone/Umeclidinium/Vilanterol 200/62.5/25 BLST.W.DEV 1 PUFF INHALE (08:21)
[2024-03-02] MEDS: Ipratropium Bromide 0.5 MG/2.5 ML SOLUTION INHALE ×4 (08:21→19:20)
[2024-03-02] MEDS: DEXTROSE 5% IV ×2 (08:58→22:18)
[2024-03-02] MEDS: ACYCLOVIR SODIUM IV ×2 (08:58→22:18)
[2024-03-02] MEDS: Loratadine 10 MG TABLET PO (08:59)
[2024-03-02] MEDS: Megestrol Acetate 20 MG TABLET 10 MG PO ×2 (08:59→20:46)
[2024-03-02] MEDS: Potassium Chloride ER 20 MEQ TAB.ER.PRT PO (08:59)
[2024-03-02] MEDS: dilTIAZem HCL 30 MG TABLET PO (08:59)
[2024-03-02] MEDS: Dabigatran Etexilate Mesylate 150 MG CAPSULE PO ×2 (08:59→20:46)
[2024-03-02] MEDS: Roflumilast 500 MCG TABLET PO (08:59)
[2024-03-02] MEDS: Gabapentin 100 MG CAPSULE PO ×3 (09:00→20:47)
[2024-03-02] MEDS: Escitalopram Oxalate 10 MG TABLET PO (09:00)
[2024-03-02] MEDS: Atorvastatin Calcium 10 MG TABLET PO (09:00)
[2024-03-02] MEDS: 0.9 % Sodium Chloride Flush 3 ML SYRINGE IVFLUSH ×2 (09:00→14:02)
[2024-03-02] MEDS: Acetaminophen 325 MG TABLET 975 MG PO ×3 (09:00→17:34)
[2024-03-02] MEDS: methylPREDNISolone Sod Succ 40 MG/ML VIAL IVPUSH (09:01)
--- NOTE | 2024-03-02 12:06 | HO.PM.IMPN ---
Subjective Subjective Date of Service: 03/02/24 Interval History: Still in AFIB with variable rate SOB is stable, she remains frail daughters no longer want hospice care Physical Exam Vital Signs: Vital Signs: Last Vital Signs Temp 97.8 F 03/02/24 07:55 Pulse 118 H 03/02/24 08:21 Resp 20 03/02/24 08:21 BP 180/78 H 03/02/24 07:55 Pulse Ox 93 03/02/24 07:55 O2 Del Method Nasal Cannula 03/02/24 07:55 O2 Flow Rate 2 03/02/24 07:55 Oxygen Flow Rate 2 02/24/24 04:27 BMI result Body Mass Index 16.9 Appearance: awake, no distress, frail looking cvs: irregular rythem, [id number] . res: air entry dimished and has b/l exp wheezing abd: no rebound or guarding ,nt, bs present. ext pulses present , no cyanosis . neuro: nonfocal. Objective Data Active Medications Acetaminophen (Acetaminophen 325 Mg Tablet) 975 mg PO Q4H [facility] Last Admin: 03/02/24 09:00 Dose: 975 mg Documented By: MINOO Atorvastatin Calcium (Atorvastatin Calcium 10 Mg Tablet) 10 mg PO DAILY [facility] Last Admin: 03/02/24 09:00 Dose: 10 mg Documented By: MINOO Calamine (Calamine/Zinc Oxide Lotion 177 Ml Bottle) 1 appl TOPICAL Q3H PRN; Protocol PRN Reason: Rash Calcium Carbonate (Calcium Carbonate 750 Mg Tab.Chew) 750 mg PO Q4H PRN PRN Reason: Heartburn Dabigatran (Dabigatran Etexilate Mesylate 150 Mg Capsule) 150 mg PO BID [facility] Last Admin: 03/02/24 08:59 Dose: 150 mg Documented By: MINOO Digoxin (Digoxin 0.125 Mg Tablet) 0.125 mg PO Q2D [facility]; Protocol Last Admin: 03/01/24 14:27 Dose: 0.125 mg Documented By: LATISHA Diltiazem HCl (Diltiazem Hcl 30 Mg Tablet) 30 mg PO QID [facility]; Protocol Last Admin: 03/02/24 08:59 Dose: 30 mg Documented By: MINOO Escitalopram Oxalate (Escitalopram Oxalate 10 Mg Tablet) 10 mg PO DAILY [facility] Last Admin: 03/02/24 09:00 Dose: 10 mg Documented By: MINOO Fluticasone/Umeclidinium/Vilanterol (Fluticasone/Umeclidinium/Vilanterol 200/62.5/25 Blst.W.Dev) 1 puff INHALE RDAILY [facility] Last Admin: 03/02/24 08:21 Dose: 1 puff Documented By: AUSTIN Gabapentin (Gabapentin 100 Mg Capsule) 100 mg PO TID [facility] Last Admin: 03/02/24 09:00 Dose: 100 mg Documented By: MINOO Guaifenesin/Dextromethorphan (Guaifenesin Dm 200/20/10 Ml 10 Ml Syrup) 10 ml PO Q6H PRN PRN Reason: Cough Diltiazem HCl 125 mg/ Sodium (Chloride) 125 mls @ 0 mls/hr IVCONT .Q0M [facility]; Protocol Last Titration: 02/29/24 15:25 Dose: 0 mg/hr, 0 mls/hr Documented By: JEANNIE Acyclovir Sodium 450 mg/ (Dextrose) 109 mls @ 110.008 mls/hr IV Q12H [facility] Last Admin: 03/02/24 08:58 Dose: 110 mls/hr Documented By: MINOO Metronidazole (Flagyl) 500 mg in 100 mls @ 100 mls/hr IV Q8H [facility] Last Infusion: 03/02/24 06:11 Dose: Infused Documented By: JEANMARIE Levofloxacin (Levaquin) 500 mg in 100 mls @ 100 mls/hr IV Q24H [facility] Last Infusion: 03/01/24 15:56 Dose: Infused Documented By: LATISHA Ipratropium [place] (Ipratropium [place] 0.5 Mg/2.5 Ml Solution) 0.5 mg INHALE RQ4H WHILE AWAKE [facility] Last Admin: 03/02/24 08:21 Dose: 0.5 mg Documented By: AUSTIN Loratadine (Loratadine 10 Mg Tablet) 10 mg PO DAILY [facility] Last Admin: 03/02/24 08:59 Dose: 10 mg Documented By: MINOO Lorazepam (Lorazepam 0.5 Mg Tablet) 0.5 mg PO BID PRN PRN Reason: Anxiety Last Admin: 02/29/24 10:42 Dose: 0.5 mg Documented By: JEANNIE Magnesium Hydroxide (Milk Of Magnesia 30 Ml Oral.Susp) 30 ml PO DAILY PRN PRN Reason: Constipation Megestrol Acetate (Megestrol Acetate 20 Mg Tablet) 10 mg PO BID [facility] Last Admin: 03/02/24 08:59 Dose: 10 mg Documented By: MINOO Melatonin (Melatonin 3 Mg Tablet) 6 mg PO BEDTIME PRN PRN Reason: Insomnia Methylprednisolone Sodium Succinate (Methylprednisolone Sod Succ 40 Mg/Ml Vial) 40 mg IVPUSH Q12H [facility] Last Admin: 03/02/24 09:01 Dose: 40 mg Documented By: MINOO Omeprazole (Omeprazole 20 Mg Capsule.Dr) 20 mg PO DAILY@0630 [facility] Last Admin: 03/02/24 05:48 Dose: 20 mg Documented By: JEANMARIE Ondansetron HCl (Ondansetron Hcl 4 Mg/2 Ml Vial) 4 mg IVPUSH Q8H PRN PRN Reason: Nausea and Vomiting Potassium Chloride (Potassium Chloride Er 20 Meq Tab.Er.Prt) 20 meq PO DAILY [facility] Last Admin: 03/02/24 08:59 Dose: 20 meq Documented By: MINOO Roflumilast (Roflumilast 500 Mcg Tablet) 500 mcg PO DAILY [facility] Last Admin: 03/02/24 08:59 Dose: 500 mcg Documented By: MINOO Sodium Chloride (0.9 % Sodium Chloride Flush 3 Ml Syringe) 3 ml IVFLUSH QSHIFT [facility] Last Admin: 03/02/24 09:00 Dose: 3 ml Documented By: MINOO Labs 03/02/24 07:00 02/28/24 11:46 Labs: Laboratory Results - last 24 hr 03/02/24 07:00 MCV 98.9 H MCH 31.4 MCHC 31.8 RDW 12.5 Plt Count 276 MPV 9.2 L Absolute Nucleated RBC 0.000 Nucleated RBC % (auto) 0.0 Assessment and Plan (1) Atrial flutter with rapid ventricular response: Status: Acute (2) Acute on chronic hypoxic respiratory failure: Status: Acute Assessment and Plan: 79/F PAF on Pradaxa, HTN, HLD, COPD on chronic 2L NC, GERD, chronic lower back pain, and anxiety/depression admitted for acute on chronic hypoxemic and hypercarbic respiratory failure in the setting of acute COPD exacerbation. Acute on chronic hypoxemic and hypercarbic respiratory failure in the setting COPD exacerbation and aspirational penumonia (02/27/24) -continue bronchodilators, has been adequately treated with steroid Aspiration PNA -was on Ceftriaxone + metronidazol until 03/01, wbc going up, could be related to steroid, allergic to pen, changed ceftriaxine to levaquin 03/02 -could not complete barium study -puree + thin liquid diet Paroxysmal AFib with RVR -continue cardizem, increase dose to 60 qid -continue dig -cardiology following -continue pradaxa HTN - amlodipine HLD -Continue statin Leukocytosis--d/t steroid Chronic lower back pain -Continue home analgesics Mood disorder -Continue home mood stabilizers Generalized weakness Worsening the past month Unable to ambulate at home this morning No reported falls PT evaluation moderate protein calorie malnutrtion : transportation lead iwona Full Code DVT Prophylaxis: pradaxa to STR when bed available, faily declining hospice Quality Stroke Does the patient have a stroke diagnosis?: No VTE Prior VTE?: No VTE Risk Level:: Medical - moderate - high VTE Device Contraindication: Treatment Not Indicated VTE Drug Contraindication: N/A - Med Ordered
--- NOTE | 2024-03-02 12:22 | PC.NURSE ---
patient has shingle rash, lesions are dry---location, under r breast and around side to mid back, no swelling french in color
--- NOTE | 2024-03-02 13:14 | MHC.SL.SWA ---
Speech Pathologist Impression: Dysphagia Nonspecific Risk of Aspiration Due to: Lethargy Medically Fragile Neurological Condition History of Pneumonia Poor PO Intake Reduced Cognition Weak Cough Dysphasia Diet Status: Recommend UPGRADE diet to Ground/Mechanical (NDD2) continue on thin liquids, pills crushed in puree. Continue with full supervision during meals, encourage patient to self feed, however monitor closely for clinical signs of aspiration. Patient benefits from alternating liquids and solids to assure full clearance of solid foods. Discontinue with clinical signs of aspiration, increased SOB, evident fatigue. Do not attempt if patient is lethargic. Patient would benefit from smaller, more frequent meals throughout day to encourage p.o. intake. Liquid Consistency and Strategies for Safe Swallow: Liquid Intake Recommendation: Thin Liquid Intake Strategies: Small Sips Solid Food Consistency: Dietary Recommendations: Grnd/Mech Altered (NDD2) Additional Modifications to Solid Foods: Oral Medication Intake: Crushed with Puree Please contact the pharmacy regarding appropriate crushable or liquid drug formulations that are available whenever modified delivery is recommended. Compensatory Strategies and Precautions to be Taken for Safe Swallow: Sitting Upright (90 deg) Double Swallow Liquids from Cup Liquids from Straw Small Bites and Sips Alternate Liquids/Solids Avoid Specific Foods Supervision While Eating and Drinking for Safe Swallow: Total Supervision (1:1) Foods to Avoid: Mixed consistencies (liquids with solids). Swallowing Recommended Treatments: Compens. Strategy Educat. Recommendation for Speech: Inpatient Speech Therapy Comment: Patient seen midday, with intent to be seem at meal, which had not arrived at time of visit. BUILDING ENERGY RETROFIT TECHNICIAN assisted [employer] with repositioning patient to be more upright in bed. Present in room at time of visit was a significant amount of food, mostly brought from outside, including coffee, candy sweets, a store bought pie, a pudding parfait with mixed consistencies, various drinks, puddings, and yogurts that were all room temperature. Breakfast tray of purees/thin was also present in room, untouched and cold. [employer] reported that family had brought food. [employer] further noted that she was unaware patient was on puree diet and required 1-1 feeding, white board in room without this notation. Patient was offered a aurora shannan which was present and cool to touch, however patient declined stating I only drink it if it is cold. BUILDING ENERGY RETROFIT TECHNICIAN retrieved ice, and food items to trial for possible upgrade of diet. Patient then accepted aurora shannan, taking sip from cup, managing it well, then requested straw, which was provided, taking reasonable sip by straw, and managing well with no clinical signs of aspiration. Patient, after taking <1/4 from cup, then declined more. Patient accepted trials of pudding, asking to feed herself. Patient self administered tsps of pudding, producing a timely oral phase/timely swallow. Softened sergio cracker was added to pudding with patient again self administering bites, producing a slow rotary chew on solids, mildly delayed oral phase, timely swallow. Patient was offered and took sip of liquid after two presentations of solid in puree. Patient was noted to have increased SOB as she progressed with a few more bites of pudding, with patient noting that this is hard. After consuming approximately 1/4 cup of pudding, patient stated that's enough. On trials of thin, puree and ground consistency (softened cracker in puree) patient evidenced toleration of consistencies with no clinical signs of aspiration. However patient fatigues quickly when eating, evidenced increase SOB. Recommend UPGRADE diet to Ground/Mechanical (NDD2) continue on thin liquids, pills crushed in puree. Continue with full supervision during meals, encourage patient to self feed, however monitor closely for clinical signs of aspiration. Patient benefits from alternating liquids and solids to assure full clearance of solid foods. Discontinue with clinical signs of aspiration, increased SOB, evident fatigue. Do not attempt if patient is lethargic. Patient would benefit from smaller, more frequent meals throughout day to encourage p.o. intake. Patient will need continued Dysphagia tx/BUILDING ENERGY RETROFIT TECHNICIAN intervention at next level of care. Frequency/Duration: Daily Date Range for Service Req: Admission Timeline to reassess: PRN Ethics Officer Clinican/Clinical Fellow: No Supervisory Statement: I have reviewed and agree with the student/clinical fellow's documentation: N/A Speech Language Pathologist: Maggie Mejia M.A., CCC-BUILDING ENERGY RETROFIT TECHNICIAN
[2024-03-02] MEDS: levoFLOXacin/D5W 500 MG/100 ML PIGGYBACK 100 MG IV (13:50)
[2024-03-02] MEDS: dilTIAZem HCL 60 MG TABLET PO ×3 (13:56→20:45)
[2024-03-02] MEDS: dilTIAZem HCL 125 MG in 0.9 % Sodium Chloride 100 ML 10 MG IVCONT (13:57)
--- NOTE | 2024-03-02 15:56 | PC.NURSE ---
patient HR continues to fluctuate currently @120 bpm @1600, carizem drip running at max rate 15/hr
[2024-03-03] VITALS (10 sets, daily range): BP systolic 131–156; BP diastolic 56–82; PULSE 84–108; RESP 16–20; TEMP 35.8–37; O2SAT 93–100
[2024-03-03] MEDS: metroNIDAZOLE/NS 500 MG/100 ML PIGGYBACK 100 MG IV ×3 (04:01→22:29)
[2024-03-03] MEDS: Omeprazole 20 MG CAPSULE.DR PO (05:08)
[2024-03-03] MEDS: Ipratropium Bromide 0.5 MG/2.5 ML SOLUTION INHALE ×3 (07:24→18:55)
[2024-03-03] MEDS: Fluticasone/Umeclidinium/Vilanterol 200/62.5/25 BLST.W.DEV 1 PUFF INHALE (07:25)
[2024-03-03 08:46] LABS: Hematocrit 33.2 % (37.0-47.0); Hemoglobin 10.7 g/dl (12.0-16.0); Mean Corpuscular HGB Conc 32.2 g/dl (31.0-35.0); Mean Corpuscular Hemoglobin 32.1 pg (27.0-33.0); Mean Corpuscular Volume 99.7 fL (80.0-98.0); Mean Platelet Volume 9.1 fL (9.4-12.3); Platelet Count 279 X10*3/uL (160-400); Red Blood Count 3.33 X10*6/uL (4.20-5.50); Red Cell Distribution Width 12.8 % (11.0-16.0)
[2024-03-03 08:57] LABS: White Blood Count 30.3 X10*3/uL (4.8-10.8)
[2024-03-03 09:04] LABS: Anion Gap 10 (12-20); Blood Urea Nitrogen 30 mg/dL (9-16); Carbon Dioxide 38 mmol/L (22-29); Chloride 96 mmol/L (96-108); Creatinine Clr Calc Pharmacy 39.4; Estimated Glomerular Filt Rate > 60; Glucose Random 114 mg/dL (60-115); Potassium 4.3 mmol/L (3.3-5.1); Sodium 140 mmol/L (135-145)
[2024-03-03] MEDS: Roflumilast 500 MCG TABLET PO (09:41)
[2024-03-03] MEDS: Dabigatran Etexilate Mesylate 150 MG CAPSULE PO ×2 (09:41→20:46)
[2024-03-03] MEDS: Escitalopram Oxalate 10 MG TABLET PO (09:41)
[2024-03-03] MEDS: Loratadine 10 MG TABLET PO (09:41)
[2024-03-03] MEDS: dilTIAZem HCL 60 MG TABLET PO ×4 (09:41→20:47)
[2024-03-03] MEDS: Gabapentin 100 MG CAPSULE PO ×3 (09:41→20:48)
[2024-03-03] MEDS: Potassium Chloride ER 20 MEQ TAB.ER.PRT PO (09:42)
[2024-03-03] MEDS: Acetaminophen 325 MG TABLET 975 MG PO ×4 (09:42→20:47)
[2024-03-03] MEDS: Megestrol Acetate 20 MG TABLET 10 MG PO ×2 (09:42→20:46)
[2024-03-03] MEDS: Atorvastatin Calcium 10 MG TABLET PO (09:42)
[2024-03-03] MEDS: 0.9 % Sodium Chloride Flush 3 ML SYRINGE IVFLUSH ×3 (09:43→20:48)
[2024-03-03] MEDS: DEXTROSE 5% IV ×2 (09:50→20:48)
[2024-03-03] MEDS: ACYCLOVIR SODIUM IV ×2 (09:50→20:48)
--- NOTE | 2024-03-03 11:16 | MHC.CLN ---
F/U PT IS MODERATELY MALNOURISHED PO INTAKE CONSISTENTLY 25% DIET RX UPGRADED TO GRD M/S PER GATE MORTISER OPERATOR PT RECEIVING ENSURE BID AND MAGIC CUP TO INCREASE KCALS MONITOR PO INTAKE AND ENCOURAGE SUPPLEMENTS
--- NOTE | 2024-03-03 11:42 | HO.PM.IMPN ---
Subjective Subjective Date of Service: 03/03/24 Interval History: Pt reports no new symptoms, HR is better WBC still trending, RN is reporting loose stool Physical Exam Vital Signs: Vital Signs: Last Vital Signs Temp 98.6 F 03/03/24 07:46 Pulse 97 03/03/24 11:09 Resp 18 03/03/24 11:09 BP 156/69 H 03/03/24 07:46 Pulse Ox 100 03/03/24 07:46 O2 Del Method Nasal Cannula 03/03/24 07:46 O2 Flow Rate 2 03/03/24 07:46 Oxygen Flow Rate 2 02/24/24 04:27 BMI result Body Mass Index 16.9 Appearance: awake, no distress, frail looking cvs: irregular rythem, [id number] . res: air entry dimished and has b/l exp wheezing abd: no rebound or guarding ,nt, bs present. ext pulses present , no cyanosis . neuro: nonfocal. Objective Data Active Medications Acetaminophen (Acetaminophen 325 Mg Tablet) 975 mg PO Q4H [facility] Last Admin: 03/03/24 09:42 Dose: 975 mg Documented By: MINOO Atorvastatin Calcium (Atorvastatin Calcium 10 Mg Tablet) 10 mg PO DAILY [facility] Last Admin: 03/03/24 09:42 Dose: 10 mg Documented By: MINOO Calamine (Calamine/Zinc Oxide Lotion 177 Ml Bottle) 1 appl TOPICAL Q3H PRN; Protocol PRN Reason: Rash Calcium Carbonate (Calcium Carbonate 750 Mg Tab.Chew) 750 mg PO Q4H PRN PRN Reason: Heartburn Dabigatran (Dabigatran Etexilate Mesylate 150 Mg Capsule) 150 mg PO BID [facility] Last Admin: 03/03/24 09:41 Dose: 150 mg Documented By: MINOO Digoxin (Digoxin 0.125 Mg Tablet) 0.125 mg PO Q2D [facility]; Protocol Last Admin: 03/01/24 14:27 Dose: 0.125 mg Documented By: LATISHA Diltiazem HCl (Diltiazem Hcl 60 Mg Tablet) 60 mg PO QID [facility]; Protocol Last Admin: 03/03/24 09:41 Dose: 60 mg Documented By: MINOO Escitalopram Oxalate (Escitalopram Oxalate 10 Mg Tablet) 10 mg PO DAILY [facility] Last Admin: 03/03/24 09:41 Dose: 10 mg Documented By: MINOO Fluticasone/Umeclidinium/Vilanterol (Fluticasone/Umeclidinium/Vilanterol 200/62.5/25 Blst.W.Dev) 1 puff INHALE RDAILY [facility] Last Admin: 03/03/24 07:25 Dose: 1 puff Documented By: TOY Gabapentin (Gabapentin 100 Mg Capsule) 100 mg PO TID [facility] Last Admin: 03/03/24 09:41 Dose: 100 mg Documented By: MINOO Guaifenesin/Dextromethorphan (Guaifenesin Dm 200/20/10 Ml 10 Ml Syrup) 10 ml PO Q6H PRN PRN Reason: Cough Diltiazem HCl 125 mg/ Sodium (Chloride) 125 mls @ 0 mls/hr IVCONT .Q0M [facility]; Protocol Last Titration: 03/03/24 00:40 Dose: 0 mg/hr, 0 mls/hr Documented By: JEANMARIE Acyclovir Sodium 450 mg/ (Dextrose) 109 mls @ 110.008 mls/hr IV Q12H [facility] Last Admin: 03/03/24 09:50 Dose: 110 mls/hr Documented By: MINOO Metronidazole (Flagyl) 500 mg in 100 mls @ 100 mls/hr IV Q8H [facility] Last Infusion: 03/03/24 05:11 Dose: Infused Documented By: JEANMARIE Levofloxacin (Levaquin) 500 mg in 100 mls @ 100 mls/hr IV Q24H [facility] Last Infusion: 03/02/24 15:19 Dose: Infused Documented By: MINOO Ipratropium [place] (Ipratropium [place] 0.5 Mg/2.5 Ml Solution) 0.5 mg INHALE RQ4H WHILE AWAKE [facility] Last Admin: 03/03/24 11:08 Dose: 0.5 mg Documented By: TOY Loratadine (Loratadine 10 Mg Tablet) 10 mg PO DAILY [facility] Last Admin: 03/03/24 09:41 Dose: 10 mg Documented By: MINOO Lorazepam (Lorazepam 0.5 Mg Tablet) 0.5 mg PO BID PRN PRN Reason: Anxiety Last Admin: 02/29/24 10:42 Dose: 0.5 mg Documented By: JEANNIE Magnesium Hydroxide (Milk Of Magnesia 30 Ml Oral.Susp) 30 ml PO DAILY PRN PRN Reason: Constipation Megestrol Acetate (Megestrol Acetate 20 Mg Tablet) 10 mg PO BID [facility] Last Admin: 03/03/24 09:42 Dose: 10 mg Documented By: MINOO Melatonin (Melatonin 3 Mg Tablet) 6 mg PO BEDTIME PRN PRN Reason: Insomnia Omeprazole (Omeprazole 20 Mg Capsule.Dr) 20 mg PO DAILY@0630 [facility] Last Admin: 03/03/24 05:08 Dose: 20 mg Documented By: JEANMARIE Ondansetron HCl (Ondansetron Hcl 4 Mg/2 Ml Vial) 4 mg IVPUSH Q8H PRN PRN Reason: Nausea and Vomiting Potassium Chloride (Potassium Chloride Er 20 Meq Tab.Er.Prt) 20 meq PO DAILY [facility] Last Admin: 03/03/24 09:42 Dose: 20 meq Documented By: MINOO Roflumilast (Roflumilast 500 Mcg Tablet) 500 mcg PO DAILY [facility] Last Admin: 03/03/24 09:41 Dose: 500 mcg Documented By: MINOO Sodium Chloride (0.9 % Sodium Chloride Flush 3 Ml Syringe) 3 ml IVFLUSH QSHIFT [facility] Last Admin: 03/03/24 09:43 Dose: 3 ml Documented By: MINOO Labs 03/03/24 08:11 03/03/24 08:11 Labs: Laboratory Results - last 24 hr 03/03/24 08:11 MCV 99.7 H MCH 32.1 MCHC 32.2 RDW 12.8 Plt Count 279 MPV 9.1 L Absolute Nucleated RBC 0.000 Nucleated RBC % (auto) 0.0 Anion Gap 10 L Estim Creat Clear Calc 39.4 Estimated GFR > 60 Random Glucose 114 Calcium 9.0 D Assessment and Plan (1) Atrial flutter with rapid ventricular response: Status: Acute (2) Acute on chronic hypoxic respiratory failure: Status: Acute Assessment and Plan: 79/F PAF on Pradaxa, HTN, HLD, COPD on chronic 2L NC, GERD, chronic lower back pain, and anxiety/depression admitted for acute on chronic hypoxemic and hypercarbic respiratory failure in the setting of acute COPD exacerbation. Acute on chronic hypoxemic and hypercarbic respiratory failure in the setting COPD exacerbation and aspirational penumonia (02/27/24) -continue bronchodilators, has been adequately treated with steroid Aspiration PNA -was on Ceftriaxone + metronidazol until 03/01, wbc going up, could be related to steroid, allergic to pen, changed ceftriaxine to levaquin 03/02 -could not complete barium study -puree + thin liquid diet Paroxysmal AFib with RVR -continue cardizem, increase dose to 60 qid -continue dig -cardiology following -continue pradaxa HTN - amlodipine HLD -Continue statin Single old..crusted with scar and no longer need isolaion for this Leukocytosis--worsening, thought to be related to steroid which is now stopped. 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
--- NOTE | 2024-03-03 13:16 | MHC.SLORD ---
Speech Language Pathology Order Status: SOCIOLOGY PROFESSOR attempted to see patient this morning for PO trials, patient declined PO offered by SOCIOLOGY PROFESSOR and family members. Family reports patient is tolerating diet textures well. She is on a GROUND/MECH ALTERED (NDD2) diet and THIN liquids, pills to be CRUSHED in PUREE. Patient continues to require 1:1 supervision at mealtime.
--- NOTE | 2024-03-03 15:08 | MHC.IC ---
Please keep Shingles rash covered with a dressing until lesions are crusted over.
--- NOTE | 2024-03-03 15:32 | MHC.CM.PN ---
Addendum entered by Autumn Aviles 03/05/24 15:29: CM RECEIVED, [facility] REQUESTING A PEER TO PEER THEY HAVE REQUESTED THE PROVIDER CONTACT THEM AT [phone] [facility] BY WEDNESDAY AT 1200 HOURS HOSPITALIST AWARE Original Note: EMR reviewed and per MD rounds, pt is not medically cleared for discharge due to pts condition worsening and increased WBC, MD to discuss goals of care with family again. Insurance auth still pending for [facility] per pt and daughters request, it is currently in medical review.
[2024-03-03] MEDS: levoFLOXacin/D5W 500 MG/100 ML PIGGYBACK 100 MG IV (15:39)
[2024-03-03] MEDS: vancomycin HCL 125 MG CAPSULE PO ×2 (15:39→20:47)
[2024-03-03] MEDS: Digoxin 0.125 MG TABLET PO (16:40)
[2024-03-04] VITALS (10 sets, daily range): BP systolic 128–148; BP diastolic 54–64; PULSE 68–90; RESP 12–24; TEMP 36.1–36.6; O2SAT 91–99
[2024-03-04] MEDS: Acetaminophen 325 MG TABLET 975 MG PO ×3 (03:26→20:45)
[2024-03-04] MEDS: vancomycin HCL 125 MG CAPSULE PO ×4 (03:27→20:45)
[2024-03-04] MEDS: metroNIDAZOLE/NS 500 MG/100 ML PIGGYBACK 100 MG IV ×3 (06:14→23:03)
[2024-03-04] MEDS: Omeprazole 20 MG CAPSULE.DR PO (06:14)
[2024-03-04] MEDS: Fluticasone/Umeclidinium/Vilanterol 200/62.5/25 BLST.W.DEV 1 PUFF INHALE (07:45)
[2024-03-04] MEDS: Ipratropium Bromide 0.5 MG/2.5 ML SOLUTION INHALE ×4 (07:45→18:51)
[2024-03-04 07:54] LABS: Hematocrit 33.5 % (37.0-47.0); Hemoglobin 10.2 g/dl (12.0-16.0); Mean Corpuscular HGB Conc 30.4 g/dl (31.0-35.0); Mean Corpuscular Hemoglobin 30.8 pg (27.0-33.0); Mean Corpuscular Volume 101.2 fL (80.0-98.0); Mean Platelet Volume 8.9 fL (9.4-12.3); Platelet Count 233 X10*3/uL (160-400); Red Blood Count 3.31 X10*6/uL (4.20-5.50); Red Cell Distribution Width 12.7 % (11.0-16.0); White Blood Count 21.3 X10*3/uL (4.8-10.8)
[2024-03-04 08:01] LABS: Anion Gap 10 (12-20); Blood Urea Nitrogen 25 mg/dL (9-16); Carbon Dioxide 38 mmol/L (22-29); Chloride 95 mmol/L (96-108); Creatinine Clr Calc Pharmacy 42.6; Estimated Glomerular Filt Rate > 60; Glucose Random 98 mg/dL (60-115); Potassium 4.3 mmol/L (3.3-5.1); Sodium 139 mmol/L (135-145)
[2024-03-04] MEDS: Roflumilast 500 MCG TABLET PO (09:55)
[2024-03-04] MEDS: Dabigatran Etexilate Mesylate 150 MG CAPSULE PO ×2 (09:56→20:46)
[2024-03-04] MEDS: Gabapentin 100 MG CAPSULE PO ×3 (09:56→20:45)
[2024-03-04] MEDS: Escitalopram Oxalate 10 MG TABLET PO (09:56)
[2024-03-04] MEDS: dilTIAZem HCL 60 MG TABLET PO ×4 (09:56→20:47)
[2024-03-04] MEDS: Potassium Chloride ER 20 MEQ TAB.ER.PRT PO (09:57)
[2024-03-04] MEDS: Megestrol Acetate 20 MG TABLET 10 MG PO ×2 (09:58→20:46)
[2024-03-04] MEDS: Atorvastatin Calcium 10 MG TABLET PO (09:58)
[2024-03-04] MEDS: 0.9 % Sodium Chloride Flush 3 ML SYRINGE IVFLUSH ×3 (09:59→20:46)
[2024-03-04 11:15] LABS: Appearance Urine Turbid; Color Urine Dark Yellow; Glucose Urine UA Negative (Negative); Leukocyte Esterase Urine Small (1+) (Negative); Nitrite Urine Positive (Negative); Specific Gravity - Urine >= 1.030 (1.005-1.025); UMIC TRIGGER UACC YES; Urine Blood Large (3+) (Negative); Urine Ketones Negative (Negative); Urine Protein 100 (2+) mg/dL (Neg-Trace)
[2024-03-04] MEDS: ACYCLOVIR SODIUM IV (11:26)
[2024-03-04] MEDS: DEXTROSE 5% IV (11:26)
[2024-03-04 11:27] LABS: Bacteria Urine None Seen (None Seen); Hyaline Casts Urine 0-2 /LPF (0-2); RBC Urine >20 /HPF (0-2); Squamous Epithelial Cell Urine 0-2 /HPF (0-2); UACC Culture Trigger YES
--- NOTE | 2024-03-04 11:57 | P.PNIM_ITS ---
Subjective Subjective Date of Service: 03/04/24 Interval History: Still frail looking, not eating much, sob at baseline WBC trending down since started PO vanco, Cdif pending Physical Exam 2 Vital Signs: Vital Signs: Last Vital Signs Temp 97.0 F 03/04/24 08:00 Pulse 88 03/04/24 11:17 Resp 18 03/04/24 11:17 BP 142/61 H 03/04/24 08:00 Pulse Ox 99 03/04/24 08:00 O2 Del Method Nasal Cannula 03/04/24 08:00 O2 Flow Rate 3 03/04/24 08:00 Oxygen Flow Rate 2 02/24/24 04:27 BMI result Body Mass Index 16.9 Objective Data Active Medications Acetaminophen (Acetaminophen 325 Mg Tablet) 975 mg PO Q4H [facility] Last Admin: 03/04/24 09:57 Dose: 975 mg Documented By: BRISEIDA Atorvastatin Calcium (Atorvastatin Calcium 10 Mg Tablet) 10 mg PO DAILY [facility] Last Admin: 03/04/24 09:58 Dose: 10 mg Documented By: BRISEIDA Calamine (Calamine/Zinc Oxide Lotion 177 Ml Bottle) 1 appl TOPICAL Q3H PRN; Protocol PRN Reason: Rash Calcium Carbonate (Calcium Carbonate 750 Mg Tab.Chew) 750 mg PO Q4H PRN PRN Reason: Heartburn Dabigatran (Dabigatran Etexilate Mesylate 150 Mg Capsule) 150 mg PO BID [facility] Last Admin: 03/04/24 09:56 Dose: 150 mg Documented By: BRISEIDA Digoxin (Digoxin 0.125 Mg Tablet) 0.125 mg PO Q2D [facility]; Protocol Last Admin: 03/03/24 16:40 Dose: 0.125 mg Documented By: MINOO Diltiazem HCl (Diltiazem Hcl 60 Mg Tablet) 60 mg PO QID [facility]; Protocol Last Admin: 03/04/24 09:56 Dose: 60 mg Documented By: BRISEIDA Escitalopram Oxalate (Escitalopram Oxalate 10 Mg Tablet) 10 mg PO DAILY [facility] Last Admin: 03/04/24 09:56 Dose: 10 mg Documented By: BRISEIDA Fluticasone/Umeclidinium/Vilanterol (Fluticasone/Umeclidinium/Vilanterol 200/62.5/25 Blst.W.Dev) 1 puff INHALE RDAILY [facility] Last Admin: 03/04/24 07:45 Dose: 1 puff Documented By: LINK Gabapentin (Gabapentin 100 Mg Capsule) 100 mg PO TID [facility] Last Admin: 03/04/24 09:56 Dose: 100 mg Documented By: BRISEIDA Guaifenesin/Dextromethorphan (Guaifenesin Dm 200/20/10 Ml 10 Ml Syrup) 10 ml PO Q6H PRN PRN Reason: Cough Diltiazem HCl 125 mg/ Sodium (Chloride) 125 mls @ 0 mls/hr IVCONT .Q0M [facility]; Protocol Last Titration: 03/03/24 00:40 Dose: 0 mg/hr, 0 mls/hr Documented By: JEANMARIE Acyclovir Sodium 450 mg/ (Dextrose) 109 mls @ 110.008 mls/hr IV Q12H [facility] Last Admin: 03/04/24 11:26 Dose: 110 mls/hr Documented By: BRISEIDA Metronidazole (Flagyl) 500 mg in 100 mls @ 100 mls/hr IV Q8H [facility] Last Infusion: 03/04/24 07:39 Dose: Infused Documented By: BRISEIDA Levofloxacin (Levaquin) 500 mg in 100 mls @ 100 mls/hr IV Q48H [facility] Ipratropium [place] (Ipratropium [place] 0.5 Mg/2.5 Ml Solution) 0.5 mg INHALE RQ4H WHILE AWAKE [facility] Last Admin: 03/04/24 11:15 Dose: 0.5 mg Documented By: LINK Loratadine (Loratadine 10 Mg Tablet) 10 mg PO DAILY [facility] Last Admin: 03/04/24 11:18 Dose: Not Given Documented By: BRISEIDA Non-Admin Reason: Patient Refused Lorazepam (Lorazepam 0.5 Mg Tablet) 0.5 mg PO BID PRN PRN Reason: Anxiety Last Admin: 02/29/24 10:42 Dose: 0.5 mg Documented By: JEANNIE Magnesium Hydroxide (Milk Of Magnesia 30 Ml Oral.Susp) 30 ml PO DAILY PRN PRN Reason: Constipation Megestrol Acetate (Megestrol Acetate 20 Mg Tablet) 10 mg PO BID [facility] Last Admin: 03/04/24 09:58 Dose: 10 mg Documented By: BRISEIDA Melatonin (Melatonin 3 Mg Tablet) 6 mg PO BEDTIME PRN PRN Reason: Insomnia Omeprazole (Omeprazole 20 Mg Capsule.Dr) 20 mg PO DAILY@0630 [facility] Last Admin: 03/04/24 06:14 Dose: 20 mg Documented By: TARIQ Ondansetron HCl (Ondansetron Hcl 4 Mg/2 Ml Vial) 4 mg IVPUSH Q8H PRN PRN Reason: Nausea and Vomiting Potassium Chloride (Potassium Chloride Er 20 Meq Tab.Er.Prt) 20 meq PO DAILY [facility] Last Admin: 03/04/24 09:57 Dose: 20 meq Documented By: BRISEIDA Roflumilast (Roflumilast 500 Mcg Tablet) 500 mcg PO DAILY [facility] Last Admin: 03/04/24 09:55 Dose: 500 mcg Documented By: BRISEIDA Sodium Chloride (0.9 % Sodium Chloride Flush 3 Ml Syringe) 3 ml IVFLUSH QSHIFT [facility] Last Admin: 03/04/24 09:59 Dose: 3 ml Documented By: BRISEIDA Vancomycin HCl (Vancomycin Hcl 125 Mg Capsule) 125 mg PO Q6H [facility] Last Admin: 03/04/24 09:56 Dose: 125 mg Documented By: BRISEIDA Labs 03/04/24 07:27 03/04/24 07:27 Labs: Laboratory Results - last 24 hr 03/04/24 03/04/24 07:27 10:33 MCV 101.2 H MCH 30.8 MCHC 30.4 L RDW 12.7 Plt Count 233 MPV 8.9 L Absolute Nucleated RBC 0.000 Nucleated RBC % (auto) 0.0 Anion Gap 10 L Estim Creat Clear Calc 42.6 Estimated GFR > 60 Random Glucose 98 Calcium 9.0 Hold Yellow Top See Note Urine Color Dark Yellow Urine Appearance Turbid Urine pH 6.0 Ur Specific [place] >= 1.030 H Urine Protein 100 (2+) H Urine Glucose (UA) Negative Urine Ketones Negative Urine Blood Large (3+) H Urine Nitrite Positive H Ur Leukocyte Esterase Small (1+) H Urine RBC >20 H Urine WBC 6-10 H Ur Squamous Epith Cells 0-2 Urine Bacteria None Seen Hyaline Casts 0-2 Urine Yeast Present Assessment and Plan (1) Atrial flutter with rapid ventricular response: Status: Acute (2) Acute on chronic hypoxic respiratory failure: Status: Acute Assessment and Plan: 79/F PAF on Pradaxa, HTN, HLD, COPD on chronic 2L NC, GERD, chronic lower back pain, and anxiety/depression admitted for acute on chronic hypoxemic and hypercarbic respiratory failure in the setting of acute COPD exacerbation. Acute on chronic hypoxemic and hypercarbic respiratory failure in the setting COPD exacerbation and aspirational penumonia (02/27/24) -continue bronchodilators, has been adequately treated with steroid Aspiration PNA, likely has chronic aspiration -was on Ceftriaxone + metronidazol until 03/01, -could not complete barium study -puree + thin liquid diet Leukocytosis--worsening, thought to be related to steroid which is now stopped. Concern about possible Cdif especially if having loose stool. WBC now trending down with PO Vanco. Cdif pending. 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
[2024-03-04 14:54] LABS: CDiff Gene PCR NEGATIVE (Negative)
[2024-03-04] MEDS: cefTRIAXone sodium 1 GM in 0.9 % Sodium Chloride 50 ML IV (20:46)
[2024-03-05] VITALS (14 sets, daily range): BP systolic 117–145; BP diastolic 46–62; PULSE 68–102; RESP 14–22; TEMP 35.9–36.6; O2SAT 90–99
[2024-03-05] MEDS: DEXTROSE 5% IV ×3 (00:09→22:57)
[2024-03-05] MEDS: ACYCLOVIR SODIUM IV ×3 (00:09→22:57)
[2024-03-05] MEDS: Omeprazole 20 MG CAPSULE.DR PO (05:30)
[2024-03-05] MEDS: vancomycin HCL 125 MG CAPSULE PO ×4 (05:31→20:54)
[2024-03-05] MEDS: Acetaminophen 325 MG TABLET 975 MG PO ×3 (05:32→20:54)
[2024-03-05] MEDS: metroNIDAZOLE/NS 500 MG/100 ML PIGGYBACK 100 MG IV ×2 (06:35→15:39)
[2024-03-05 06:57] LABS: Hemoglobin 10.6 g/dl (12.0-16.0); Mean Corpuscular HGB Conc 30.3 g/dl (31.0-35.0); Mean Corpuscular Hemoglobin 31.4 pg (27.0-33.0); Mean Corpuscular Volume 103.6 fL (80.0-98.0); Mean Platelet Volume 8.8 fL (9.4-12.3); Platelet Count 258 X10*3/uL (160-400); Red Blood Count 3.38 X10*6/uL (4.20-5.50); White Blood Count 19.8 X10*3/uL (4.8-10.8)
[2024-03-05 07:06] LABS: Blood Urea Nitrogen 22 mg/dL (9-16); Calcium 9.3 mg/dL (8.4-10.2); Creatinine Clr Calc Pharmacy 47.3; Estimated Glomerular Filt Rate > 60; Glucose Random 99 mg/dL (60-115)
[2024-03-05 07:19] LABS: Anion Gap 11 (12-20); Carbon Dioxide 36 mmol/L (22-29); Chloride 96 mmol/L (96-108); Potassium 4.4 mmol/L (3.3-5.1); Sodium 139 mmol/L (135-145)
[2024-03-05] MEDS: Ipratropium Bromide 0.5 MG/2.5 ML SOLUTION INHALE ×4 (08:12→20:28)
[2024-03-05] MEDS: Fluticasone/Umeclidinium/Vilanterol 200/62.5/25 BLST.W.DEV 1 PUFF INHALE (08:12)
--- NOTE | 2024-03-05 09:38 | HO.PM.IMPN ---
Subjective Subjective Date of Service: 03/05/24 Interval History: Still frail looking, not eating much, sob at baseline WBC trending down since started PO vanco, Cdif negative but responding to PO vanco Physical Exam Vital Signs: Vital Signs: Last Vital Signs Temp 97.0 F 03/05/24 08:00 Pulse 88 03/05/24 08:15 Resp 18 03/05/24 08:15 BP 145/61 H 03/05/24 08:00 Pulse Ox 95 03/05/24 08:00 O2 Del Method Nasal Cannula 03/05/24 08:00 O2 Flow Rate 2 03/05/24 08:00 Oxygen Flow Rate 2 02/24/24 04:27 BMI result Body Mass Index 16.9 Objective Data Active Medications Acetaminophen (Acetaminophen 325 Mg Tablet) 975 mg PO Q4H [facility] Last Admin: 03/05/24 05:32 Dose: 975 mg Documented By: TARIQ Atorvastatin Calcium (Atorvastatin Calcium 10 Mg Tablet) 10 mg PO DAILY [facility] Last Admin: 03/04/24 09:58 Dose: 10 mg Documented By: BRISEIDA Calamine (Calamine/Zinc Oxide Lotion 177 Ml Bottle) 1 appl TOPICAL Q3H PRN; Protocol PRN Reason: Rash Calcium Carbonate (Calcium Carbonate 750 Mg Tab.Chew) 750 mg PO Q4H PRN PRN Reason: Heartburn Dabigatran (Dabigatran Etexilate Mesylate 150 Mg Capsule) 150 mg PO BID [facility] Last Admin: 03/04/24 20:46 Dose: 150 mg Documented By: TARIQ Digoxin (Digoxin 0.125 Mg Tablet) 0.125 mg PO Q2D [facility]; Protocol Last Admin: 03/03/24 16:40 Dose: 0.125 mg Documented By: MINOO Diltiazem HCl (Diltiazem Hcl 60 Mg Tablet) 60 mg PO QID [facility]; Protocol Last Admin: 03/04/24 20:47 Dose: 60 mg Documented By: TARIQ Escitalopram Oxalate (Escitalopram Oxalate 10 Mg Tablet) 10 mg PO DAILY [facility] Last Admin: 03/04/24 09:56 Dose: 10 mg Documented By: BRISEIDA Fluticasone/Umeclidinium/Vilanterol (Fluticasone/Umeclidinium/Vilanterol 200/62.5/25 Blst.W.Dev) 1 puff INHALE RDAILY [facility] Last Admin: 03/05/24 08:12 Dose: 1 puff Documented By: ALVERTO Gabapentin (Gabapentin 100 Mg Capsule) 100 mg PO TID [facility] Last Admin: 03/04/24 20:45 Dose: 100 mg Documented By: TARIQ Guaifenesin/Dextromethorphan (Guaifenesin Dm 200/20/10 Ml 10 Ml Syrup) 10 ml PO Q6H PRN PRN Reason: Cough Diltiazem HCl 125 mg/ Sodium (Chloride) 125 mls @ 0 mls/hr IVCONT .Q0M [facility]; Protocol Last Titration: 03/03/24 00:40 Dose: 0 mg/hr, 0 mls/hr Documented By: JEANMARIE Acyclovir Sodium 450 mg/ (Dextrose) 109 mls @ 110.008 mls/hr IV Q12H [facility] Last Infusion: 03/05/24 01:09 Dose: Infused Documented By: TARIQ Metronidazole (Flagyl) 500 mg in 100 mls @ 100 mls/hr IV Q8H [facility] Last Admin: 03/05/24 06:35 Dose: 100 mls/hr Documented By: TARIQ Ceftriaxone Sodium 1 gm/ (Sodium Chloride) 50 mls @ 100 mls/hr IV Q24H [facility] Last Infusion: 03/04/24 21:16 Dose: Infused Documented By: TARIQ Ipratropium [place] (Ipratropium [place] 0.5 Mg/2.5 Ml Solution) 0.5 mg INHALE RQ4H WHILE AWAKE [facility] Last Admin: 03/05/24 08:12 Dose: 0.5 mg Documented By: ALVERTO Loratadine (Loratadine 10 Mg Tablet) 10 mg PO DAILY [facility] Last Admin: 03/04/24 11:18 Dose: Not Given Documented By: BRISEIDA Non-Admin Reason: Patient Refused Lorazepam (Lorazepam 0.5 Mg Tablet) 0.5 mg PO BID PRN PRN Reason: Anxiety Last Admin: 02/29/24 10:42 Dose: 0.5 mg Documented By: JEANNIE Magnesium Hydroxide (Milk Of Magnesia 30 Ml Oral.Susp) 30 ml PO DAILY PRN PRN Reason: Constipation Megestrol Acetate (Megestrol Acetate 20 Mg Tablet) 10 mg PO BID [facility] Last Admin: 03/04/24 20:46 Dose: 10 mg Documented By: TARIQ Melatonin (Melatonin 3 Mg Tablet) 6 mg PO BEDTIME PRN PRN Reason: Insomnia Omeprazole (Omeprazole 20 Mg Capsule.Dr) 20 mg PO DAILY@0630 [facility] Last Admin: 03/05/24 05:30 Dose: 20 mg Documented By: TARIQ Ondansetron HCl (Ondansetron Hcl 4 Mg/2 Ml Vial) 4 mg IVPUSH Q8H PRN PRN Reason: Nausea and Vomiting Potassium Chloride (Potassium Chloride Er 20 Meq Tab.Er.Prt) 20 meq PO DAILY [facility] Last Admin: 03/04/24 09:57 Dose: 20 meq Documented By: BRISEIDA Roflumilast (Roflumilast 500 Mcg Tablet) 500 mcg PO DAILY [facility] Last Admin: 03/04/24 09:55 Dose: 500 mcg Documented By: BRISEIDA Sodium Chloride (0.9 % Sodium Chloride Flush 3 Ml Syringe) 3 ml IVFLUSH QSHIFT [facility] Last Admin: 03/04/24 20:46 Dose: 3 ml Documented By: TARIQ Vancomycin HCl (Vancomycin Hcl 125 Mg Capsule) 125 mg PO Q6H [facility] Last Admin: 03/05/24 05:31 Dose: 125 mg Documented By: TARIQ Labs 03/06/24 05:45 03/06/24 05:45 Labs: Laboratory Results - last 24 hr 03/04/24 03/05/24 10:33 06:25 MCV 103.6 H MCH 31.4 MCHC 30.3 L RDW 13.0 Plt Count 258 MPV 8.8 L Absolute Nucleated RBC 0.000 Nucleated RBC % (auto) 0.0 Anion Gap 11 L Estim Creat Clear Calc 47.3 Estimated GFR > 60 Random Glucose 99 Calcium 9.3 Urine Color Dark Yellow Urine Appearance Turbid Urine pH 6.0 Ur Specific [place] >= 1.030 H Urine Protein 100 (2+) H Urine Glucose (UA) Negative Urine Ketones Negative Urine Blood Large (3+) H Urine Nitrite Positive H Ur Leukocyte Esterase Small (1+) H Urine RBC >20 H Urine WBC 6-10 H Ur Squamous Epith Cells 0-2 Urine Bacteria None Seen Hyaline Casts 0-2 Urine Yeast Present C. difficile Tox B Gene NEGATIVE Assessment and Plan (1) Atrial flutter with rapid ventricular response: Status: Acute (2) Acute on chronic hypoxic respiratory failure: Status: Acute Assessment and Plan: 79/F PAF on Pradaxa, HTN, HLD, COPD on chronic 2L NC, GERD, chronic lower back pain, and anxiety/depression admitted for acute on chronic hypoxemic and hypercarbic respiratory failure in the setting of acute COPD exacerbation. Acute on chronic hypoxemic and hypercarbic respiratory failure in the setting COPD exacerbation and aspirational penumonia (02/27/24) -continue bronchodilators, has been adequately treated with steroid Aspiration PNA, likely has chronic aspiration -ceftriaxone for uti -could not complete barium study -puree + thin liquid diet Leukocytosis--worsening, thought to be related to steroid which is now stopped. Concern about possible Cdif especially if having loose stool. WBC now trending down with PO Vanco. Cdif pending. UTI--waiting on culture. 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
[2024-03-05] MEDS: 0.9 % Sodium Chloride Flush 3 ML SYRINGE IVFLUSH ×3 (10:05→21:03)
[2024-03-05] MEDS: Dabigatran Etexilate Mesylate 150 MG CAPSULE PO ×2 (10:08→20:54)
[2024-03-05] MEDS: Roflumilast 500 MCG TABLET PO (10:08)
[2024-03-05] MEDS: Loratadine 10 MG TABLET PO (10:09)
[2024-03-05] MEDS: Atorvastatin Calcium 10 MG TABLET PO (10:09)
[2024-03-05] MEDS: Potassium Chloride ER 20 MEQ TAB.ER.PRT PO (10:09)
[2024-03-05] MEDS: dilTIAZem HCL 60 MG TABLET PO ×3 (10:10→18:26)
[2024-03-05] MEDS: Escitalopram Oxalate 10 MG TABLET PO (10:11)
[2024-03-05] MEDS: Gabapentin 100 MG CAPSULE PO ×3 (10:11→20:54)
[2024-03-05] MEDS: Megestrol Acetate 20 MG TABLET 10 MG PO ×2 (10:12→20:54)
[2024-03-05] MEDS: Digoxin 0.125 MG TABLET PO (15:44)
--- NOTE | 2024-03-05 17:57 | PM.EVENT ---
Event Note Date of Service: 03/05/24 Event Note: called by RN, pt with worsening cough and pitting edema of feet SaO2 in 80s but hands were cold, now 95% on 3L on Oxymask diminished lung sounds at bases will obtain BNP, CXR; 1-time dose of furosemide 20 mg IV Time Spent With Patient Time: Total time managing care of this patient today ____ minutes.
[2024-03-05] MEDS: Furosemide 20 MG/2 ML VIAL IVPUSH (18:20)
[2024-03-05] MEDS: guaiFENesin DM 200/20/10 ML 10 ML SYRUP PO (18:27)
[2024-03-05 18:43] LABS: B Type Natriuretic Peptide 129 pg/mL (<100)
--- NOTE | 2024-03-05 19:54 | PC.NURSE ---
at approx 1700 FINGER COBBLER was taking vitals on patient and was unable to get an o2 sat above 80%. Pt's daughter expressed concern that patient seemed more swollen to her and her cough worse. Pt found to have very cold hands and attempts were made to get better reading on sat. with probe attempted on ear and other hand. O2 was also titrated up to 4 then 6L and patient transitioned to oxymask as pt was reporting some increased congestion and stuffy nose. Hot packs were applied to hands and warm blankets to patient with sats almost immediately starting to rise. As sats reached 95% O2 was titrated down to 4 then 3L oxymask. At no time did patient appear different than she had throughout the day. Lung sounds remained diminished. cough remained loose with no sputum. MD Raya aware and down to see patient. Guaifenesin, lasix given with effect pending. Xray complete. Pt and family reassured. Plan of care ongonig.
[2024-03-05] MEDS: cefTRIAXone sodium 1 GM in 0.9 % Sodium Chloride 50 ML IV (20:53)
[2024-03-06] VITALS (12 sets, daily range): BP systolic 126–144; BP diastolic 60–66; PULSE 84–105; RESP 17–20; TEMP 36–36.7; O2SAT 89–99
[2024-03-06] MEDS: dilTIAZem HCL 60 MG TABLET PO ×4 (00:14→18:21)
[2024-03-06] MEDS: metroNIDAZOLE/NS 500 MG/100 ML PIGGYBACK 100 MG IV ×2 (00:15→04:15)
[2024-03-06] MEDS: vancomycin HCL 125 MG CAPSULE PO ×4 (04:16→20:42)
[2024-03-06] MEDS: Omeprazole 20 MG CAPSULE.DR PO (05:20)
[2024-03-06 06:22] LABS: Hematocrit 33.9 % (37.0-47.0); Hemoglobin 10.4 g/dl (12.0-16.0); Mean Corpuscular HGB Conc 30.7 g/dl (31.0-35.0); Mean Corpuscular Hemoglobin 31.5 pg (27.0-33.0); Mean Corpuscular Volume 102.7 fL (80.0-98.0); Mean Platelet Volume 8.6 fL (9.4-12.3); Platelet Count 297 X10*3/uL (160-400); Red Cell Distribution Width 12.7 % (11.0-16.0)
[2024-03-06 06:57] LABS: Anion Gap 12 (12-20); Blood Urea Nitrogen 18 mg/dL (9-16); Calcium 8.8 mg/dL (8.4-10.2); Carbon Dioxide 38 mmol/L (22-29); Chloride 93 mmol/L (96-108); Creatinine Clr Calc Pharmacy 38.8; Estimated Glomerular Filt Rate > 60; Glucose Random 77 mg/dL (60-115); Potassium 4.6 mmol/L (3.3-5.1); Sodium 138 mmol/L (135-145)
[2024-03-06] MEDS: Ipratropium Bromide 0.5 MG/2.5 ML SOLUTION INHALE ×3 (07:39→15:16)
[2024-03-06] MEDS: Fluticasone/Umeclidinium/Vilanterol 200/62.5/25 BLST.W.DEV 1 PUFF INHALE (07:39)
[2024-03-06] MEDS: Megestrol Acetate 20 MG TABLET 10 MG PO ×2 (08:43→20:43)
[2024-03-06] MEDS: Roflumilast 500 MCG TABLET PO (08:43)
[2024-03-06] MEDS: Escitalopram Oxalate 10 MG TABLET PO (08:43)
[2024-03-06] MEDS: Dabigatran Etexilate Mesylate 150 MG CAPSULE PO ×2 (08:43→20:42)
[2024-03-06] MEDS: Atorvastatin Calcium 10 MG TABLET PO (08:44)
[2024-03-06] MEDS: Loratadine 10 MG TABLET PO (08:44)
[2024-03-06] MEDS: Potassium Chloride ER 20 MEQ TAB.ER.PRT PO (08:44)
[2024-03-06] MEDS: 0.9 % Sodium Chloride Flush 3 ML SYRINGE IVFLUSH ×3 (08:46→20:46)
[2024-03-06] MEDS: ACYCLOVIR SODIUM IV ×2 (08:52→20:42)
[2024-03-06] MEDS: DEXTROSE 5% IV ×2 (08:52→20:42)
[2024-03-06] MEDS: LORazepam 0.5 MG TABLET PO (09:35)
--- NOTE | 2024-03-06 10:20 | HO.PM.IMPN ---
Subjective Subjective Date of Service: 03/06/24 Interval History: No new issues, remains very frail respiratory status is stable. Physical Exam Vital Signs: Vital Signs: Last Vital Signs Temp 98.0 F 03/06/24 07:51 Pulse 98 03/06/24 07:51 Resp 18 03/06/24 07:51 BP 134/63 03/06/24 07:51 Pulse Ox 98 03/06/24 07:51 O2 Del Method Nasal Cannula 03/06/24 07:51 O2 Flow Rate 4 03/06/24 07:51 Oxygen Flow Rate 2 02/24/24 04:27 BMI result Body Mass Index 16.9 Objective Data Active Medications Acetaminophen (Acetaminophen 325 Mg Tablet) 975 mg PO Q4H [facility] Last Admin: 03/06/24 04:18 Dose: Not Given Documented By: KIRIT Non-Admin Reason: Patient Refused Atorvastatin Calcium (Atorvastatin Calcium 10 Mg Tablet) 10 mg PO DAILY [facility] Last Admin: 03/06/24 08:44 Dose: 10 mg Documented By: WILLIE Calamine (Calamine/Zinc Oxide Lotion 177 Ml Bottle) 1 appl TOPICAL Q3H PRN; Protocol PRN Reason: Rash Calcium Carbonate (Calcium Carbonate 750 Mg Tab.Chew) 750 mg PO Q4H PRN PRN Reason: Heartburn Dabigatran (Dabigatran Etexilate Mesylate 150 Mg Capsule) 150 mg PO BID [facility] Last Admin: 03/06/24 08:43 Dose: 150 mg Documented By: WILLIE Digoxin (Digoxin 0.125 Mg Tablet) 0.125 mg PO Q2D [facility]; Protocol Last Admin: 03/05/24 15:44 Dose: 0.125 mg Documented By: TEVIN Diltiazem HCl (Diltiazem Hcl 60 Mg Tablet) 60 mg PO QID [facility]; Protocol Last Admin: 03/06/24 08:43 Dose: 60 mg Documented By: WILLIE Escitalopram Oxalate (Escitalopram Oxalate 10 Mg Tablet) 10 mg PO DAILY [facility] Last Admin: 03/06/24 08:43 Dose: 10 mg Documented By: WILLIE Fluticasone/Umeclidinium/Vilanterol (Fluticasone/Umeclidinium/Vilanterol 200/62.5/25 Blst.W.Dev) 1 puff INHALE RDAILY [facility] Last Admin: 03/06/24 07:39 Dose: 1 puff Documented By: ALVERTO Gabapentin (Gabapentin 100 Mg Capsule) 100 mg PO TID [facility] Last Admin: 03/06/24 09:01 Dose: Not Given Documented By: WILLIE Non-Admin Reason: Patient Refused Guaifenesin/Dextromethorphan (Guaifenesin Dm 200/20/10 Ml 10 Ml Syrup) 10 ml PO Q6H PRN PRN Reason: Cough Last Admin: 03/05/24 18:27 Dose: 10 ml Documented By: TEVIN Acyclovir Sodium 450 mg/ (Dextrose) 109 mls @ 110.008 mls/hr IV Q12H [facility] Last Admin: 03/06/24 08:52 Dose: 110 mls/hr Documented By: WILLIE Fluconazole (Diflucan) 200 mg in 100 mls @ 100 mls/hr IV ONCE ONE Stop: 03/06/24 11:15 Ipratropium Crescent (Ipratropium Crescent 0.5 Mg/2.5 Ml Solution) 0.5 mg INHALE RQ4H WHILE AWAKE [facility] Last Admin: 03/06/24 07:39 Dose: 0.5 mg Documented By: ALVERTO Loratadine (Loratadine 10 Mg Tablet) 10 mg PO DAILY [facility] Last Admin: 03/06/24 08:44 Dose: 10 mg Documented By: WILLIE Lorazepam (Lorazepam 0.5 Mg Tablet) 0.5 mg PO BID PRN PRN Reason: Anxiety Last Admin: 03/06/24 09:35 Dose: 0.5 mg Documented By: WILLIE Magnesium Hydroxide (Milk Of Magnesia 30 Ml Oral.Susp) 30 ml PO DAILY PRN PRN Reason: Constipation Megestrol Acetate (Megestrol Acetate 20 Mg Tablet) 10 mg PO BID [facility] Last Admin: 03/06/24 08:43 Dose: 10 mg Documented By: WILLIE Melatonin (Melatonin 3 Mg Tablet) 6 mg PO BEDTIME PRN PRN Reason: Insomnia Omeprazole (Omeprazole 20 Mg Capsule.Dr) 20 mg PO DAILY@0630 [facility] Last Admin: 03/06/24 05:20 Dose: 20 mg Documented By: ANTOIC Ondansetron HCl (Ondansetron Hcl 4 Mg/2 Ml Vial) 4 mg IVPUSH Q8H PRN PRN Reason: Nausea and Vomiting Potassium Chloride (Potassium Chloride Er 20 Meq Tab.Er.Prt) 20 meq PO DAILY [facility] Last Admin: 03/06/24 08:44 Dose: 20 meq Documented By: WILLIE Roflumilast (Roflumilast 500 Mcg Tablet) 500 mcg PO DAILY [facility] Last Admin: 03/06/24 08:43 Dose: 500 mcg Documented By: WILLIE Sodium Chloride (0.9 % Sodium Chloride Flush 3 Ml Syringe) 3 ml IVFLUSH QSHIFT [facility] Last Admin: 03/06/24 08:46 Dose: 3 ml Documented By: WILLIE Vancomycin HCl (Vancomycin Hcl 125 Mg Capsule) 125 mg PO Q6H [facility] Last Admin: 03/06/24 08:43 Dose: 125 mg Documented By: WILLIE Labs 03/06/24 05:45 03/06/24 05:45 Labs: Laboratory Results - last 24 hr 03/05/24 03/06/24 18:16 05:45 MCV 102.7 H MCH 31.5 MCHC 30.7 L RDW 12.7 Plt Count 297 MPV 8.6 L Absolute Nucleated RBC 0.000 Nucleated RBC % (auto) 0.0 Anion Gap 12 Estim Creat Clear Calc 38.8 Estimated GFR > 60 Random Glucose 77 Calcium 8.8 B-Natriuretic Peptide 129 H Microbiology Microbiology Results: Microbiology 03/04/24 Unknown Urine Culture - Final Urine clean catch - Clean Catch Midstream Beatrice albicans Assessment and Plan (1) Atrial flutter with rapid ventricular response: Status: Acute (2) Acute on chronic hypoxic respiratory failure: Status: Acute Assessment and Plan: 79/F PAF on Pradaxa, HTN, HLD, COPD on chronic 2L NC, GERD, chronic lower back pain, and anxiety/depression admitted for acute on chronic hypoxemic and hypercarbic respiratory failure in the setting of acute COPD exacerbation. Acute on chronic hypoxemic and hypercarbic respiratory failure in the setting COPD exacerbation and aspirational penumonia (02/27/24) -continue bronchodilators, has been adequately treated with steroid Aspiration PNA, likely has chronic aspiration -has completed 10 days of antotics -could not complete barium study -puree + thin liquid diet Leukocytosis--worsening, thought to be related to steroid which is now stopped. Concern about possible Cdif, but C dif toxin negative but responding to PO Vanco, would treat UTI--Yeast, add diflucan Paroxysmal AFib with RVR -continue cardizem, increase dose to 60 qid -continue dig -cardiology following -continue pradaxa HTN - amlodipine HLD -Continue statin Single old..crusted with scar and no longer need isolaion for this Chronic lower back pain -Continue home analgesics Mood disorder -Continue home mood stabilizers Generalized weakness Worsening the past month Unable to ambulate at home this morning No reported falls PT evaluation moderate protein calorie malnutrtion : 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
--- NOTE | 2024-03-06 10:54 | MHC.SL.SWA ---
Speech Pathologist Impression: Dysphagia Nonspecific Risk of Aspiration Due to: Lethargy Medically Fragile Neurological Condition History of Pneumonia Poor PO Intake Reduced Cognition Weak Cough Dysphasia Diet Status: Recommend UPGRADE diet to Ground/Mechanical (NDD2) continue on thin liquids, pills crushed in puree. Continue with full supervision during meals, encourage patient to self feed, however monitor closely for clinical signs of aspiration. Patient benefits from alternating liquids and solids to assure full clearance of solid foods. Discontinue with clinical signs of aspiration, increased SOB, evident fatigue. Do not attempt if patient is lethargic. Patient would benefit from smaller, more frequent meals throughout day to encourage p.o. intake. Liquid Consistency and Strategies for Safe Swallow: Liquid Intake Recommendation: Thin Liquid Intake Strategies: Small Sips Solid Food Consistency: Dietary Recommendations: Grnd/Mech Altered (NDD2) Additional Modifications to Solid Foods: Oral Medication Intake: Whole with Puree Please contact the pharmacy regarding appropriate crushable or liquid drug formulations that are available whenever modified delivery is recommended. Compensatory Strategies and Precautions to be Taken for Safe Swallow: Sitting Upright (90 deg) Double Swallow Liquids from Cup Liquids from Straw Small Bites and Sips Alternate Liquids/Solids Avoid Specific Foods Supervision While Eating and Drinking for Safe Swallow: Total Supervision (1:1) Foods to Avoid: Mixed consistencies (liquids with solids). Swallowing Recommended Treatments: Compens. Strategy Educat. Recommendation for Speech: Inpatient Speech Therapy Comment: Recommend follow-up at bedside to re-assess safest, least restrictive diet for disposition. Education ongoing re:aspiration precautions, safey strategies, diet recommendations Frequency/Duration: Daily Date Range for Service Req: Admission Timeline to reassess: PRN Line Construction Superintendent Clinican/Clinical Fellow: No Supervisory Statement: I have reviewed and agree with the student/clinical fellow's documentation: N/A Speech Language Pathologist: Ingrid Alvarado M.S. CCC-ANSWERING SERVICE TELEPHONE OPERATOR
[2024-03-06] MEDS: Fluconazole in NaCl,Iso-Osm 200 MG/100 ML PIGGYBACK 100 MG IV (11:41)
--- NOTE | 2024-03-06 11:45 | MHC.CLN ---
F/U PT IS MODERATELY MALNOURISHED PO INTAKE CONSISTENTLY 25% DIET RX: GRD M/S PER TANKAGE GRINDER OPERATOR PT RECEIVING ENSURE BID AND MAGIC CUP TO INCREASE KCALS CONTINUE TO MONITOR PO INTAKE AND ENCOURAGE SUPPLEMENTS
--- NOTE | 2024-03-06 14:50 | MHC.CM.PN ---
This CM was notified this am by pts RN that the pt and family would now like her to go home on hospice. This CM met with pt and daughter/HCP Maya present at bedside to discuss discharge plans. Pt sleeping through conversation. Per Maya, she states her mother said she would like to go home. Maya states she needs time to prepare the house in order to have hospice have the DME delivered. This CM coordinated with [facility] nurse Paulina, they are able to order DME for it to be delivered tomorrow 03/07, she will coordinate with pts daughter Maya on this. In the meantime, this CM received a message that [employer] auth has been denied for pt to go to [facility] as that was pending from last week. This CM met with pts daughter multiple times throughout the day for ongoing discharge planning. Per Maya, she would like her mother to stay here until Wednesday (03/10) in order to get her FMLA paperwork in order and to get the house ready. This CM explained that hospice is able to have her mom admitted onto hospice as soon as tomorrow 03/07, and that we cannot keep her here until Wednesday as she is being medically cleared for discharge home on hospice. Second IMM given today 03/06, per Maya they would like to appeal the discharge and she will either call today or tomorrow.
[2024-03-06] MEDS: Acetaminophen 325 MG TABLET 975 MG PO (20:46)
[2024-03-07] MEDS: Acetaminophen 325 MG TABLET 975 MG PO ×4 (03:34→20:59)
[2024-03-07] MEDS: vancomycin HCL 125 MG CAPSULE PO ×4 (03:34→20:58)
[2024-03-07 03:41] VITALS: BP 133/57; PULSE 86; RESP 18; TEMP 36.4; O2SAT 99
[2024-03-07] MEDS: Omeprazole 20 MG CAPSULE.DR PO (06:25)
[2024-03-07 06:52] LABS: Hematocrit 33.9 % (37.0-47.0); Hemoglobin 10.4 g/dl (12.0-16.0); Mean Corpuscular HGB Conc 30.7 g/dl (31.0-35.0); Mean Corpuscular Hemoglobin 31.6 pg (27.0-33.0); Mean Platelet Volume 8.5 fL (9.4-12.3); Platelet Count 296 X10*3/uL (160-400); Red Blood Count 3.29 X10*6/uL (4.20-5.50); Red Cell Distribution Width 12.9 % (11.0-16.0); White Blood Count 16.1 X10*3/uL (4.8-10.8)
[2024-03-07 07:10] LABS: Anion Gap 10 (12-20); Blood Urea Nitrogen 16 mg/dL (9-16); Chloride 94 mmol/L (96-108); Creatinine Clr Calc Pharmacy 42.6; Estimated Glomerular Filt Rate > 60; Glucose Random 74 mg/dL (60-115); Potassium 4.7 mmol/L (3.3-5.1); Sodium 140 mmol/L (135-145)
[2024-03-07 07:11] VITALS: BP 146/66; PULSE 87; RESP 18; TEMP 36.6; O2SAT 99
[2024-03-07 07:51] LABS: Carbon Dioxide 41 mmol/L (22-29)
[2024-03-07] MEDS: Atorvastatin Calcium 10 MG TABLET PO (09:15)
[2024-03-07] MEDS: Dabigatran Etexilate Mesylate 150 MG CAPSULE PO ×2 (09:15→20:58)
[2024-03-07] MEDS: Loratadine 10 MG TABLET PO (09:15)
[2024-03-07] MEDS: Roflumilast 500 MCG TABLET PO (09:15)
[2024-03-07] MEDS: Escitalopram Oxalate 10 MG TABLET PO (09:15)
[2024-03-07] MEDS: dilTIAZem HCL 60 MG TABLET PO ×5 (09:15→20:58)
[2024-03-07] MEDS: 0.9 % Sodium Chloride Flush 3 ML SYRINGE IVFLUSH ×3 (09:15→21:00)
[2024-03-07] MEDS: Megestrol Acetate 20 MG TABLET 10 MG PO ×2 (09:16→20:59)
[2024-03-07] MEDS: ACYCLOVIR SODIUM IV ×2 (10:48→20:58)
[2024-03-07] MEDS: DEXTROSE 5% IV ×2 (10:48→20:58)
--- NOTE | 2024-03-07 13:48 | MHC.CM.PN ---
This CM met with pts daughter Maya today, she states she filed the appeal for the discharge. This CM presented another option to Maya for her mothers discharge, [facility], Maya said no, they want to bring her home.
--- NOTE | 2024-03-07 14:08 | HO.PM.IMPN ---
Subjective Subjective Date of Service: 03/07/24 Interval History: Doing ok, with no new issues vitals stable Physical Exam Vital Signs: Vital Signs: Last Vital Signs Temp 97.8 F 03/07/24 07:11 Pulse 87 03/07/24 07:11 Resp 18 03/07/24 07:11 BP 146/66 H 03/07/24 07:11 Pulse Ox 99 03/07/24 07:11 O2 Del Method Nasal Cannula 03/07/24 07:11 O2 Flow Rate 4 03/07/24 07:11 Oxygen Flow Rate 2 02/24/24 04:27 BMI result Body Mass Index 16.9 Appearance: awake, no distress, frail looking cvs: irregular rythem, [id number] . res: air entry dimished and has b/l exp wheezing abd: no rebound or guarding ,nt, bs present. ext pulses present , no cyanosis . neuro: nonfocal. Objective Data Active Medications Acetaminophen (Acetaminophen 325 Mg Tablet) 975 mg PO Q4H [facility] Last Admin: 03/07/24 13:31 Dose: 325 mg Documented By: WILLIE Atorvastatin Calcium (Atorvastatin Calcium 10 Mg Tablet) 10 mg PO DAILY [facility] Last Admin: 03/07/24 09:15 Dose: 10 mg Documented By: WILLIE Calamine (Calamine/Zinc Oxide Lotion 177 Ml Bottle) 1 appl TOPICAL Q3H PRN; Protocol PRN Reason: Rash Calcium Carbonate (Calcium Carbonate 750 Mg Tab.Chew) 750 mg PO Q4H PRN PRN Reason: Heartburn Dabigatran (Dabigatran Etexilate Mesylate 150 Mg Capsule) 150 mg PO BID [facility] Last Admin: 03/07/24 09:15 Dose: 150 mg Documented By: WILLIE Digoxin (Digoxin 0.125 Mg Tablet) 0.125 mg PO Q2D [facility]; Protocol Last Admin: 03/05/24 15:44 Dose: 0.125 mg Documented By: TEVIN Diltiazem HCl (Diltiazem Hcl 60 Mg Tablet) 60 mg PO QID [facility]; Protocol Last Admin: 03/07/24 13:29 Dose: 60 mg Documented By: WILLIE Escitalopram Oxalate (Escitalopram Oxalate 10 Mg Tablet) 10 mg PO DAILY [facility] Last Admin: 03/07/24 09:15 Dose: 10 mg Documented By: WILLIE Fluticasone/Umeclidinium/Vilanterol (Fluticasone/Umeclidinium/Vilanterol 200/62.5/25 Blst.W.Dev) 1 puff INHALE RDAILY [facility] Last Admin: 03/07/24 11:13 Dose: Not Given Documented By: ROCÍO Non-Admin Reason: Patient Refused Gabapentin (Gabapentin 100 Mg Capsule) 100 mg PO TID [facility] Last Admin: 03/07/24 09:16 Dose: Not Given Documented By: WILLIE Non-Admin Reason: Patient Refused Guaifenesin/Dextromethorphan (Guaifenesin Dm 200/20/10 Ml 10 Ml Syrup) 10 ml PO Q6H PRN PRN Reason: Cough Last Admin: 03/05/24 18:27 Dose: 10 ml Documented By: TEVIN Acyclovir Sodium 450 mg/ (Dextrose) 109 mls @ 110.008 mls/hr IV Q12H [facility] Last Infusion: 03/07/24 12:54 Dose: Infused Documented By: WILLIE Loratadine (Loratadine 10 Mg Tablet) 10 mg PO DAILY [facility] Last Admin: 03/07/24 09:15 Dose: 10 mg Documented By: WILLIE Magnesium Hydroxide (Milk Of Magnesia 30 Ml Oral.Susp) 30 ml PO DAILY PRN PRN Reason: Constipation Megestrol Acetate (Megestrol Acetate 20 Mg Tablet) 10 mg PO BID [facility] Last Admin: 03/07/24 09:16 Dose: 10 mg Documented By: WILLEI Melatonin (Melatonin 3 Mg Tablet) 6 mg PO BEDTIME PRN PRN Reason: Insomnia Omeprazole (Omeprazole 20 Mg Capsule.Dr) 20 mg PO DAILY@0630 [facility] Last Admin: 03/07/24 06:25 Dose: 20 mg Documented By: ELENA Ondansetron HCl (Ondansetron Hcl 4 Mg/2 Ml Vial) 4 mg IVPUSH Q8H PRN PRN Reason: Nausea and Vomiting Potassium Chloride (Potassium Chloride Er 20 Meq Tab.Er.Prt) 20 meq PO DAILY [facility] Last Admin: 03/07/24 09:16 Dose: Not Given Documented By: WILLIE Non-Admin Reason: Patient Refused Roflumilast (Roflumilast 500 Mcg Tablet) 500 mcg PO DAILY [facility] Last Admin: 03/07/24 09:15 Dose: 500 mcg Documented By: WILLIE Sodium Chloride (0.9 % Sodium Chloride Flush 3 Ml Syringe) 3 ml IVFLUSH QSHIFT [facility] Last Admin: 03/07/24 09:15 Dose: 3 ml Documented By: WILLIE Vancomycin HCl (Vancomycin Hcl 125 Mg Capsule) 125 mg PO Q6H [facility] Last Admin: 03/07/24 09:15 Dose: 125 mg Documented By: WILLIE Labs 03/07/24 06:16 03/07/24 06:16 Labs: Laboratory Results - last 24 hr 03/07/24 06:16 MCV 103.0 H MCH 31.6 MCHC 30.7 L RDW 12.9 Plt Count 296 MPV 8.5 L Absolute Nucleated RBC 0.000 Nucleated RBC % (auto) 0.0 Anion Gap 10 L Estim Creat Clear Calc 42.6 Estimated GFR > 60 Random Glucose 74 Calcium 9.0 Assessment and Plan (1) Atrial flutter with rapid ventricular response: Status: Acute (2) Acute on chronic hypoxic respiratory failure: Status: Acute Assessment and Plan: 79/F PAF on Pradaxa, HTN, HLD, COPD on chronic 2L NC, GERD, chronic lower back pain, and anxiety/depression admitted for acute on chronic hypoxemic and hypercarbic respiratory failure in the setting of acute COPD exacerbation. Acute on chronic hypoxemic and hypercarbic respiratory failure in the setting COPD exacerbation and aspirational penumonia (02/27/24) -continue bronchodilators, has been adequately treated with steroid Aspiration PNA, likely has chronic aspiration -has completed 10 days of antotics -could not complete barium study -puree + thin liquid diet Leukocytosis--worsening, thought to be related to steroid which is now stopped. 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
[2024-03-07] MEDS: Digoxin 0.125 MG TABLET PO (14:31)
[2024-03-07] MEDS: Fluconazole 100 MG TABLET PO (15:34)
[2024-03-07 15:36] VITALS: BP 108/47; PULSE 87; RESP 20; TEMP 36.3; O2SAT 98
--- NOTE | 2024-03-07 17:05 | MHC.SL.DTX ---
Dysphagia Diet modifications: Last documented Solid diet consistencies: Chopped/Advanced (NDD3) Last documented Liquid consistency: Thin Last documented Medication Administration:NPO Changes made to current diet?: Yes: Upgrade Solids Liquid Consistency and Strategies: Liquid Intake Recommendation: Thin Compensatory Strategies for Safe Swallow: Small Sips Compensatory Strategies for Safe Swallow(b): Sitting Upright (90 deg) Double Swallow Liquids from Cup Liquids from Straw Small Bites and Sips Alternate Liquids/Solids Avoid Specific Foods Solid Food Consistency: Dietary Recommendations: Grnd/Mech Altered (NDD2) Oral Medication Intake: Whole with Puree Strategies and Precautions to be Taken for Safe Swallow: Sitting Upright (90 deg) Double Swallow Liquids from Cup Liquids from Straw Small Bites and Sips Alternate Liquids/Solids Avoid Specific Foods Supervision While Eating and/Drinking: Total Supervision (1:1) Foods to Avoid: Mixed consistencies (liquids with solids). Swallowing Recommended Treatments: Compens. Strategy Educat. Level of Impact on: Daily activities: Moderate Interpersonal interactions: Education: None Employment: None Community: Moderate Prognosis for Improvement: Fair Recommendation for Speech: Inpatient Speech Therapy Comment: Recommend follow-up at bedside to re-assess safest, least restrictive diet for disposition. Pt will need to be more awake and alert than at today's study. Frequency/Duration: Daily Date Range for Service Req: Admission Timeline to reassess: PRN Treatment: Pt seen upright in her recliner in the afternoon. She has eyes closed, but opens them to her name. There are crunchy snacks strewn about the room, she states that she does eat them. Pt tolerated bites of Regular Solid Filemon Cracker with appropriate mastication time, mild oral residue that was cleared with a thin liquid wash with no overt s/s of aspiration. There is HCP and Hospice paperwork present. FOUR CORNER FORMER MACHINE OPERATOR will follow-up on appropriateness for an MBSS prior to upgrading to a Regular diet depending on disposition and Family goals of care. Executive Pastry Chef Clinican/Clinical Fellow: No Supervisory Statement: I have reviewed and agree with the student/clinical fellow's documentation: N/A Speech Language Pathologist: Kirk Sharp M.A., [facility] FORMER MACHINE OPERATOR
--- NOTE | 2024-03-07 18:38 | PC.NURSE ---
Pt was notified about transfer to room 345 , pt's daughter was notified , report was called artie Braden RN
[2024-03-07 19:26] VITALS: BP 143/70; PULSE 86; RESP 16; TEMP 36.3; O2SAT 95
[2024-03-07 20:58] VITALS: BP 143/70; PULSE 86
[2024-03-07] MEDS: Gabapentin 100 MG CAPSULE PO (20:58)
[2024-03-08] MEDS: Acetaminophen 325 MG TABLET 975 MG PO ×3 (02:12→13:39)
[2024-03-08] MEDS: vancomycin HCL 125 MG CAPSULE PO ×4 (02:12→20:56)
[2024-03-08 03:27] VITALS: BP 129/61; PULSE 87; RESP 18; TEMP 36.7; O2SAT 94
[2024-03-08] MEDS: Omeprazole 20 MG CAPSULE.DR PO (05:45)
[2024-03-08 07:26] VITALS: BP 155/70; PULSE 90; RESP 18; TEMP 36.6; O2SAT 99
[2024-03-08] MEDS: 0.9 % Sodium Chloride Flush 3 ML SYRINGE IVFLUSH ×3 (08:29→20:58)
[2024-03-08] MEDS: Escitalopram Oxalate 10 MG TABLET PO (08:31)
[2024-03-08] MEDS: Atorvastatin Calcium 10 MG TABLET PO (08:31)
[2024-03-08] MEDS: Gabapentin 100 MG CAPSULE PO ×3 (08:31→20:57)
[2024-03-08] MEDS: Roflumilast 500 MCG TABLET PO (08:31)
[2024-03-08] MEDS: Fluconazole 100 MG TABLET PO (08:32)
[2024-03-08] MEDS: Potassium Chloride ER 20 MEQ TAB.ER.PRT PO (08:32)
[2024-03-08] MEDS: Loratadine 10 MG TABLET PO (08:32)
[2024-03-08 08:33] VITALS: BP 139/63; PULSE 87
[2024-03-08] MEDS: dilTIAZem HCL 60 MG TABLET PO ×3 (08:33→20:57)
[2024-03-08] MEDS: Megestrol Acetate 20 MG TABLET 10 MG PO ×2 (08:35→20:56)
--- NOTE | 2024-03-08 08:48 | HO.PM.IMPN ---
Subjective Subjective Date of Service: 03/08/24 Interval History: No new issues, looks frail sob at baseline Physical Exam Vital Signs: Vital Signs: Last Vital Signs Temp 97.8 F 03/08/24 07:26 Pulse 87 03/08/24 08:33 Resp 18 03/08/24 07:26 BP 139/63 03/08/24 08:33 Pulse Ox 99 03/08/24 07:26 O2 Del Method Nasal Cannula 03/08/24 07:26 O2 Flow Rate 4 03/08/24 07:26 Oxygen Flow Rate 2 02/24/24 04:27 BMI result Body Mass Index 16.9 Appearance: awake, no distress, frail looking cvs: irregular rythem, res: air entry dimished and has b/l exp wheezing abd: no rebound or guarding ,nt, bs present. ext pulses present , no cyanosis . neuro: nonfocal. Const: Other: Appearance: awake, no distress, frail looking cvs: irregular rythem, [id number] . res: air entry dimished and has b/l exp wheezing abd: no rebound or guarding ,nt, bs present. ext pulses present , no cyanosis . neuro: nonfocal. Objective Data Active Medications Acetaminophen (Acetaminophen 325 Mg Tablet) 975 mg PO Q4H [facility] Last Admin: 03/08/24 08:32 Dose: 975 mg Documented By: DANNI Atorvastatin Calcium (Atorvastatin Calcium 10 Mg Tablet) 10 mg PO DAILY [facility] Last Admin: 03/08/24 08:31 Dose: 10 mg Documented By: DANNI Calamine (Calamine/Zinc Oxide Lotion 177 Ml Bottle) 1 appl TOPICAL Q3H PRN; Protocol PRN Reason: Rash Calcium Carbonate (Calcium Carbonate 750 Mg Tab.Chew) 750 mg PO Q4H PRN PRN Reason: Heartburn Dabigatran (Dabigatran Etexilate Mesylate 150 Mg Capsule) 150 mg PO BID [facility] Last Admin: 03/07/24 20:58 Dose: 150 mg Documented By: ANTHONYILShelly Digoxin (Digoxin 0.125 Mg Tablet) 0.125 mg PO Q2D [facility]; Protocol Last Admin: 03/07/24 14:31 Dose: 0.125 mg Documented By: WILLIE Diltiazem HCl (Diltiazem Hcl 60 Mg Tablet) 60 mg PO QID [facility]; Protocol Last Admin: 03/08/24 08:33 Dose: 60 mg Documented By: DANNI Escitalopram Oxalate (Escitalopram Oxalate 10 Mg Tablet) 10 mg PO DAILY [facility] Last Admin: 03/08/24 08:31 Dose: 10 mg Documented By: DANNI Fluconazole (Fluconazole 100 Mg Tablet) 100 mg PO DAILY [facility] Last Admin: 03/08/24 08:32 Dose: 100 mg Documented By: DANNI Fluticasone/Umeclidinium/Vilanterol (Fluticasone/Umeclidinium/Vilanterol 200/62.5/25 Blst.W.Dev) 1 puff INHALE RDAILY [facility] Last Admin: 03/08/24 07:59 Dose: Not Given Documented By: CEZAR Non-Admin Reason: Med Not Available Gabapentin (Gabapentin 100 Mg Capsule) 100 mg PO TID [facility] Last Admin: 03/08/24 08:31 Dose: 100 mg Documented By: DANNI Guaifenesin/Dextromethorphan (Guaifenesin Dm 200/20/10 Ml 10 Ml Syrup) 10 ml PO Q6H PRN PRN Reason: Cough Last Admin: 03/05/24 18:27 Dose: 10 ml Documented By: TEVIN Acyclovir Sodium 450 mg/ (Dextrose) 109 mls @ 110.008 mls/hr IV Q12H [facility] Last Infusion: 03/07/24 22:00 Dose: Infused Documented By: BRYAN Loratadine (Loratadine 10 Mg Tablet) 10 mg PO DAILY [facility] Last Admin: 03/08/24 08:32 Dose: 10 mg Documented By: DANNI Magnesium Hydroxide (Milk Of Magnesia 30 Ml Oral.Susp) 30 ml PO DAILY PRN PRN Reason: Constipation Megestrol Acetate (Megestrol Acetate 20 Mg Tablet) 10 mg PO BID [facility] Last Admin: 03/08/24 08:35 Dose: 10 mg Documented By: DANNI Melatonin (Melatonin 3 Mg Tablet) 6 mg PO BEDTIME PRN PRN Reason: Insomnia Omeprazole (Omeprazole 20 Mg Capsule.Dr) 20 mg PO DAILY@0630 [facility] Last Admin: 03/08/24 05:45 Dose: 20 mg Documented By: BRYAN Ondansetron HCl (Ondansetron Hcl 4 Mg/2 Ml Vial) 4 mg IVPUSH Q8H PRN PRN Reason: Nausea and Vomiting Potassium Chloride (Potassium Chloride Er 20 Meq Tab.Er.Prt) 20 meq PO DAILY [facility] Last Admin: 03/08/24 08:32 Dose: 20 meq Documented By: DANNI Roflumilast (Roflumilast 500 Mcg Tablet) 500 mcg PO DAILY [facility] Last Admin: 03/08/24 08:31 Dose: 500 mcg Documented By: DANNI Sodium Chloride (0.9 % Sodium Chloride Flush 3 Ml Syringe) 3 ml IVFLUSH QSHIFT [facility] Last Admin: 03/08/24 08:29 Dose: 3 ml Documented By: DANNI Vancomycin HCl (Vancomycin Hcl 125 Mg Capsule) 125 mg PO Q6H [facility] Last Admin: 03/08/24 08:32 Dose: 125 mg Documented By: DANNI Labs 03/07/24 06:16 03/07/24 06:16 Assessment and Plan (1) Atrial flutter with rapid ventricular response: Status: Acute (2) Acute on chronic hypoxic respiratory failure: Status: Acute Assessment and Plan: 79/F PAF on Pradaxa, HTN, HLD, COPD on chronic 2L NC, GERD, chronic lower back pain, and anxiety/depression admitted for acute on chronic hypoxemic and hypercarbic respiratory failure in the setting of acute COPD exacerbation. Acute on chronic hypoxemic and hypercarbic respiratory failure in the setting COPD exacerbation and aspirational penumonia (02/27/24) -continue bronchodilators, has been adequately treated with steroid Aspiration PNA, likely has chronic aspiration -has completed 10 days of antotics -could not complete barium study -puree + thin liquid diet Leukocytosis--related to above and ? cdif despite negative serology -trending down, monitor Metabolic alkalosis--likely from bompensation from chronic respiratory acidosis UTI--Yeast, diflucan Paroxysmal AFib with RVR -continue cardizem changed to single dose 240 -continue dig -cardiology following -continue pradaxa HTN - amlodipine HLD -Continue statin Shingle old..crusted with scar and no longer need isolaion for this Chronic lower back pain -Continue home analgesics Mood disorder -Continue home mood stabilizers Generalized weakness Worsening the past month Unable to ambulate at home this morning No reported falls PT evaluation moderate protein calorie malnutrtion : 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
--- NOTE | 2024-03-08 09:08 | PC.NURSE ---
Patient refuses Dr. Tiago Chew notified
[2024-03-08] MEDS: Dabigatran Etexilate Mesylate 150 MG CAPSULE PO ×2 (09:14→20:56)
[2024-03-08] MEDS: DEXTROSE 5% IV ×2 (09:15→20:57)
[2024-03-08] MEDS: ACYCLOVIR SODIUM IV ×2 (09:15→20:57)
[2024-03-08 10:35] LABS: Hematocrit 34.9 % (37.0-47.0); Hemoglobin 10.8 g/dl (12.0-16.0); Mean Corpuscular HGB Conc 30.9 g/dl (31.0-35.0); Mean Corpuscular Hemoglobin 31.4 pg (27.0-33.0); Mean Corpuscular Volume 101.5 fL (80.0-98.0); Mean Platelet Volume 8.7 fL (9.4-12.3); Platelet Count 327 X10*3/uL (160-400); Red Blood Count 3.44 X10*6/uL (4.20-5.50); Red Cell Distribution Width 12.8 % (11.0-16.0); White Blood Count 15.4 X10*3/uL (4.8-10.8)
[2024-03-08 10:44] LABS: Anion Gap 11 (12-20); Blood Urea Nitrogen 13 mg/dL (9-16); Calcium 8.7 mg/dL (8.4-10.2); Carbon Dioxide 36 mmol/L (22-29); Chloride 93 mmol/L (96-108); Creatinine Clr Calc Pharmacy 40.5; Estimated Glomerular Filt Rate > 60; Glucose Random 163 mg/dL (60-115); Potassium 4.2 mmol/L (3.3-5.1); Sodium 136 mmol/L (135-145)
--- NOTE | 2024-03-08 10:45 | MHC.SL.SWA ---
Speech Pathologist Impression: Dysphagia Nonspecific Risk of Aspiration Due to: Lethargy Medically Fragile Neurological Condition History of Pneumonia Poor PO Intake Reduced Cognition Weak Cough Dysphasia Diet Status: Recommend UPGRADE diet to Chopped/Advanced Solids continue on thin liquids, pills crushed in puree. Continue with full supervision during meals, encourage patient to self feed, however monitor closely for clinical signs of aspiration. Patient benefits from alternating liquids and solids to assure full clearance of solid foods. Discontinue with clinical signs of aspiration, increased SOB, evident fatigue. Do not attempt if patient is lethargic. Patient would benefit from smaller, more frequent meals throughout day to encourage p.o. intake. Liquid Consistency and Strategies for Safe Swallow: Liquid Intake Recommendation: Thin Liquid Intake Strategies: Small Sips Solid Food Consistency: Dietary Recommendations: Chopped/Advanced (NDD3) Additional Modifications to Solid Foods: Oral Medication Intake: Whole with Puree Please contact the pharmacy regarding appropriate crushable or liquid drug formulations that are available whenever modified delivery is recommended. Compensatory Strategies and Precautions to be Taken for Safe Swallow: Sitting Upright (90 deg) Double Swallow Liquids from Cup Liquids from Straw Small Bites and Sips Alternate Liquids/Solids Avoid Specific Foods Supervision While Eating and Drinking for Safe Swallow: Total Supervision (1:1) Foods to Avoid: Mixed consistencies (liquids with solids). Swallowing Recommended Treatments: Compens. Strategy Educat. Recommendation for Speech: Inpatient Speech Therapy Comment: ST followup today at bedside to re-assess, pt endorsed fatigue, politely refused PO. POC includes home with hospice. ST to provide continued support and education with pt and family re:safety precautions, overt s/s of aspiration, diet modifications. Pt sipped thins without overt difficulty, RN consulted. Pt resting comfortably in recliner. Frequency/Duration: Daily Date Range for Service Req: Admission Timeline to reassess: PRN Diploma Maker Clinican/Clinical Fellow: No Supervisory Statement: I have reviewed and agree with the student/clinical fellow's documentation: N/A Speech Language Pathologist: Ingrid Alvarado M.S. [facility]-SCREENER AND BLENDER OPERATOR
--- NOTE | 2024-03-08 12:38 | MHC.CM.PN ---
familly appealed the dc
[2024-03-08] MEDS: Nystatin Powder 15 GM BOTTLE 1 APPL TOPICAL ×2 (13:41→20:57)
--- NOTE | 2024-03-08 14:48 | MHC.CLN ---
F/U DIET=REGULAR, CHOPPED. SUPPLEMENTS ENSURE BID (700 KCALS, 40 G PROTEIN) AND MAGIC CUP TID (870 KCALS, 27 G PROTEIN). PO INTAKE 0-25%. SUPPLEMENTS TO INCREASE NUTRITIONAL INTAKE. CONTINUE TO MONITOR PO INTAKE AND ENCOURAGE SUPPLEMENTS.
[2024-03-08 15:37] VITALS: BP 129/65; PULSE 86; RESP 18; TEMP 36.5; O2SAT 99
--- NOTE | 2024-03-08 16:03 | MHC.CM.PN ---
pt lost appeal dc arranged for 12:00 tomorrow ,eqip per family request will be delivered tomorrow am ..cristina rizzoa willbe at [facility] by 1 amb booked for 12:00 dr larsen aware
[2024-03-08 19:14] VITALS: BP 118/56; PULSE 72; RESP 18; TEMP 36.5; O2SAT 98
[2024-03-09 03:08] VITALS: BP 140/65; PULSE 85; RESP 18; TEMP 36.2; O2SAT 99
[2024-03-09] MEDS: vancomycin HCL 125 MG CAPSULE PO ×2 (03:14→08:37)
[2024-03-09] MEDS: Omeprazole 20 MG CAPSULE.DR PO (05:32)
[2024-03-09 07:07] VITALS: BP 142/64; PULSE 87; RESP 16; TEMP 36.3; O2SAT 99
--- NOTE | 2024-03-09 07:26 | P.DS_ITS ---
DS: Providers Provider Date of Service: 03/09/24 <Marianela Red MD - Last Filed: 03/09/24 10:37> Date of admission: 02/24/24 12:29 <Rafa Duque MD - Last Filed: 03/09/24 07:38> Primary care physician: MD Bel Vega MD - Last Filed: 03/09/24 07:38> Consults: 02/27/24 10:39 Consult to Cardiology Routine Consulting Provider: [facility] Reason for consultation: AFIB with rvr Has provider been notified: No 02/27/24 12:51 Consult to Pulmonology Routine Consulting Provider: [facility] Reason for consultation: worsening hypoxia /copd Has provider been notified: No 02/27/24 13:17 Consult to Critical Care Routine Consulting Provider: Bradley Samayoa Reason for consultation: hypercarbic/hypoxemic respiratory failure /copd Has provider been notified: No 03/08/24 18:32 Consult to Wound Care Routine Reason for consultation: bilateral buttocks redness,left mid back scabbed area,left groin redness Has provider been notified: No <Rafa Duque MD - Last Filed: 03/09/24 07:38> DS: Diagnosis Discharge Diagnosis (1) Atrial flutter with rapid ventricular response: Status: Acute <Rafa Duque MD - Last Filed: 03/09/24 07:38> (2) Acute on chronic hypoxic respiratory failure: Status: Acute <Rafa Duque MD - Last Filed: 03/09/24 07:38> DS: Summary Hospital Course Hospital Course: admission hpi Chief Complaint: SOB Pt is an 79-year-old female with a PMH significant for?paroxysmal AFib on Pradaxa, HTN, HLD, COPD on chronic 2L NC, GERD, chronic lower back pain, and anxiety/depression who presents to the ED from home with increased SOB, lethargy, and confusion since this morning. Patient is alert and oriented x3 though overall a rather poor and vague historian. HPI is supplemented by family who was at bedside. Patient reports increased SOB, weakness, occasional cough, and chills for the past 2-3 weeks. Her son has been living with for the past month to help out around the house and with caregiving. Patient has been sleeping in the living room on the couch lately, and this morning at 02:00 son found her confused, lethargic, and unable to stand or ambulate. Daughter notes patient has been declining for the past few months with decreased appetite and increased weight loss. Quit smoking 12 years ago after smoking 1-2 packs daily for many years. This is patient's 1st admission to [facility], but reports multiple previous hospitalizations for COPD exacerbations at [facility] in [place]. Patient denies chest pain/pressure, palpitations. Denies nausea, vomiting, abdominal pain. Currently no dysuria. Of note, while in the ED patient was lying flat after DuoNeb treatment when she suddenly became tachycardic up to the 140s, tachypneic into the 30s, and hypoxic into the high 70s. Patient was placed on BiPAP for 45 minutes with good response out of concern for flash pulmonary edema. Repeat chest x-ray was negative. In the ED pt was tachycardic up to 142, tachypneic up to 38, hypertensive up to 174/85, hypoxic as low as 79% on home 2L NC, and mild fever 100.3. Labs were significant for leukocytosis 17 point, stable normocytic anemia of 10.4/32.0, sodium 133, chloride 88, bicarb 37, initial troponin 22.7 with repeat 21.6, and BNP mildly elevated at 220. Lactic acid WNL at 0.6. Hepatic function and ammonia WNL. VBG pH 7.29 with bicarb 33 and pCO2 68. UA negative for UTI. Tested negative for flu, COVID, RSV. Initial CXR showed no acute cardiopulmonary disease, with repeat unchanged. EKG demonstrated normal sinus rhythm with sinus arrhythmia, no evidence of significant ST elevations or depressions. Pt was treated with IVF, hydroxyzine, DuoNebs, Solu-Medrol, and ceftriaxone. Pt will be admitted to the hospital for treatment and further evaluation of acute on chronic hypoxemic and hypercarbic respiratory failure in the setting of acute COPD exacerbation. Hospital course: An 79-year-old female with a history of paroxysmal atrial fibrillation (on Pradaxa), hypertension, hyperlipidemia, COPD (on chronic 2L nasal cannula), GERD, chronic lower back pain, and anxiety/depression, was admitted for [id number] hypoxemic and hypercarbic respiratory failure secondary to a COPD exacerbation. Her hospital course was complicated by atrial fibrillation with rapid ventricular response (RVR), aspiration pneumonia, a UTI, and overall failure to thrive. Her COPD exacerbation was managed with bronchodilators, supplemental oxygen, and a completed course of steroids. Aspiration pneumonia was treated with a 10-day course of antibiotics. The UTI, initially treated with ceftriaxone, grew yeast on culture, and she is now on a 10-day course of Diflucan. Atrial fibrillation with RVR required IV Cardizem, later transitioned to oral Cardizem and Digoxin. Despite these interventions, the patient has continued to decline, becoming frail, deconditioned, and failing to thrive. After a [id number] discussion with the patient and her family, they have decided to pursue hospice and comfort care at home. Problems: Acute on chronic hypoxemic and hypercarbic respiratory failure in the setting COPD exacerbation and aspirational penumonia -underlying copd treated with iv steroid, bronchodilators and to continue baseline oxygen Aspiration PNA, likely has chronic aspiration--completed 10 days of antibiobics. 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 Patient was on p.o. vancomycin from last 5 days, plan is to continue p.o. vancomycin 125 mg p.o. q.i.d. for 5 more days. Metabolic alkalosis--likely from bompensation from chronic respiratory acidosis UTI--Yeast, diflucan-please complete Diflucan for 6 more days. Paroxysmal AFib with RVR -continue cardizem cardizem and digoxin, was seen by cardio. Metoprolol stopped. Continue Dabigatran HTN--amlodipine changed to cardizem HLD -Continue statin Shingle old..crusted with scar and no longer need isolaion for this Completed the course of antivirals. 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 Assessment and plan coordination time spent 40 minute. <Rafa Duque MD - Last Filed: 03/09/24 07:38> Time Attestation Total time managing care of this patient today: 40 mintues. <Marianela Red MD - Last Filed: 03/09/24 10:37> Discharge Coordination Time (in mins): 40 min <Marianela Red MD - Last Filed: 03/09/24 10:37> Quality: Safe Use of Opioids Does Pt have an Active Cancer Diagnosis on the Problem List?: No <Marianela Red MD - Last Filed: 03/09/24 10:37> Quality: Stroke Does the patient have a stroke diagnosis?: No <Marianela Red MD - Last Filed: 03/09/24 10:37> Physical Exam Vital Signs: Vital Signs: Last Vital Signs Temp 97.4 F 03/09/24 07:07 Pulse 87 03/09/24 07:07 Resp 16 03/09/24 07:07 BP 142/64 H 03/09/24 07:07 Pulse Ox 99 03/09/24 07:07 O2 Del Method Nasal Cannula 03/09/24 07:07 O2 Flow Rate 4 03/09/24 07:07 Oxygen Flow Rate 2 02/24/24 04:27 BMI result Body Mass Index 16.9 <Rafa Duque MD - Last Filed: 03/09/24 07:38> Appearance: awake, no distress, frail looking cvs: irregular rythem res: air entry fair , has few wheezes abd: no rebound or guarding ,nt, bs present. ext pulses present , no cyanosis . neuro: nonfocal. <Marianela Red MD - Last Filed: 03/09/24 10:37> DS: Data Data Completed and Pending Labs on day of discharge: Laboratory Results - last 24 hr 03/08/24 10:03 WBC 15.4 H RBC 3.44 L Hgb 10.8 L Hct 34.9 L MCV 101.5 H MCH 31.4 MCHC 30.9 L RDW 12.8 Plt Count 327 MPV 8.7 L Absolute Nucleated RBC 0.000 Nucleated RBC % (auto) 0.0 Sodium 136 Potassium 4.2 Chloride 93 L Carbon Dioxide 36 H Anion Gap 11 L BUN 13 Creatinine 0.64 Estim Creat Clear Calc 40.5 Estimated GFR > 60 Random Glucose 163 H Calcium 8.7 <Rafa Duque MD - Last Filed: 03/09/24 07:38> Imaging Chest x-ray: Radiologist's impression: ITS Impressions Chest X-Ray 02/24/24 04:45 IMPRESSION: No acute cardiopulmonary disease. Electronically signed by: Zoltan Brady MD 02/24/2024 05:02 AM EDT RP Chest X-Ray 02/24/24 07:55 IMPRESSION: Findings as above. Electronically signed by: Cristiano Kim MD 02/24/2024 11:09 AM EDT RP Chest X-Ray 02/27/24 12:30 IMPRESSION: Findings as above. Electronically signed by: Cristiano Kim MD 02/27/2024 03:47 PM EDT RP Chest CT 02/27/24 15:08 IMPRESSION: Limited by motion. Severe emphysema. Debris within dependent lower lobe bronchi, right worse than left. Patchy bibasilar dependent airspace disease suggesting infiltrates and/or atelectasis, right worse than left. Cannot entirely exclude aspiration pneumonia. Suspect trace right pleural fluid. Additional findings, as above. Electronically signed by: Cristiano Kim MD 02/27/2024 04:44 PM EDT RP Modified Barium Swallow 02/29/24 14:12 IMPRESSION: Limited exam due to patient cooperation. No obvious laryngeal penetration or aspiration was observed with the minimally ingested barium. Refer to the speech therapy report for further clarification This procedure was performed by Jose Ochoa PA-C, and supervised by Dr. Reyes Electronically signed by: Aramis Reyes MD 02/29/2024 03:17 PM EDT RP Chest X-Ray 03/03/24 12:20 IMPRESSION: Severe emphysema. Streaky bibasilar opacities not significant changed from prior exam. Electronically signed by: Pankaj Torres MD 03/03/2024 03:41 PM EDT RP Chest X-Ray 03/05/24 18:20 IMPRESSION: Severe emphysema. No acute intrathoracic disease. Electronically signed by: Chris Rogel MD 03/05/2024 06:38 PM EDT RP <Marianela Red MD - Last Filed: 03/09/24 10:37> Discharge Plan Discharge Anticipated Discharge Date/Time: 03/09/24 15:41 <Rafa Duque MD - Last Filed: 03/09/24 07:38> Patient Disposition: Hospice - Home <Rafa Duque MD - Last Filed: 03/09/24 07:38> Discharge Diagnosis: Acute on chronic hypoxic respiratory failure due to COPD <Rafa Duque MD - Last Filed: 03/09/24 07:38> Acute on chronic hypoxic respiratory failure due to COPD <Marianela Red MD - Last Filed: 03/09/24 10:37> Referrals: Dora [Outside] ([facility] technical support internship will arrive to provide SOC in your home today at 1pm) Elpidio Alba MD [Primary Care Provider] - 1 Week <Rafa Duque MD - Last Filed: 03/09/24 07:38> Discharge Medications: New acetaminophen 650 mg suppository 650 mg MI Q6H PRN (Reason: pain (scale score 1-3)) Qty: 30 0RF hyoscyamine sulfate 0.125 mg tablet 0.125 mg PO QID PRN (Reason: secretions) Qty: 30 0RF lorazepam 2 mg/mL concentrate 1 mg PO Q6H PRN (Reason: anxiety) Qty: 30 0RF morphine concentrate 100 mg/5 mL (20 mg/mL) solution 10 mg PO Q2-3H Qty: 30 0RF Rx Instructions: Partial Fill upon patient request. diltiazem HCl [Cardizem CD] 240 mg capsule,extended release 24hr 240 mg PO DAILY Qty: 30 0RF digoxin 125 mcg (0.125 mg) Tablet 0.125 mg PO Q2D Qty: 30 0RF Protocol: Hold for HR <: HOLD for HR < : 60 fluconazole 100 mg Tablet 100 mg PO DAILY Qty: 6 0RF vancomycin 125 mg Capsule 125 mg PO Q6H Qty: 20 0RF Continued potassium chloride 20 mEq tablet extended release 20 meq PO DAILY 90 Days Qty: 90 1RF atorvastatin 10 mg tablet 10 mg PO DAILY 90 Days Qty: 90 2RF citalopram 20 mg tablet 20 mg PO DAILY 30 Days Qty: 30 2RF megestrol 20 mg tablet 10 mg PO BID 30 Days Qty: 30 2RF albuterol sulfate 2.5 mg /3 mL (0.083 %) solution for nebulization 1 vial inhalation Q6H PRN (Reason: wheezing) dabigatran etexilate [Pradaxa] 150 mg capsule 1 cap PO BID roflumilast [Daliresp] 500 mcg tablet 500 mcg PO DAILY Combivent Respimat 20-100 mcg/actuation mist 1 puff PO QID formoterol fumarate 20 mcg/2 mL solution for nebulization 2 ml inhalation BID lansoprazole 30 mg capsule,delayed release(DR/EC) 30 mg PO DAILY@0630 loratadine [Allergy Relief (loratadine)] 10 mg tablet 10 mg PO DAILY mecobalamin (vitamin B12) 1,000 mcg tablet,chewable 1,000 mcg PO DAILY 90 Days Qty: 90 2RF Discontinued amlodipine 5 mg tablet 5 mg PO DAILY metoprolol tartrate 25 mg tablet 25 mg PO BID 90 Days Qty: 180 2RF oxycodone-acetaminophen [Percocet] 5-325 mg tablet 1 tab PO BID PRN (Reason: pain) 30 Days Qty: 60 0RF Rx Instructions: MassPat Verified. Partial Fill upon patient request. <Rafa Duque MD - Last Filed: 03/09/24 07:38> Discharge Orders: Discharge Order (Routine); Ordered 03/09/24 Ordered By: Marianela Red <Rafa Duque MD - Last Filed: 03/09/24 07:38> Diet: Advance to usual diet <Rafa Duque MD - Last Filed: 03/09/24 07:38> Advance to usual diet <Marianela Red MD - Last Filed: 03/09/24 10:37> Activity on Discharge: As tolerated <Rafa Duque MD - Last Filed: 03/09/24 07:38> As tolerated <Marianela Red MD - Last Filed: 03/09/24 10:37> Stand Alone Forms: Patient Portal Discharge page <Rafa Duque MD - Last Filed: 03/09/24 07:38> Print Language: Faroese <Rafa Duque MD - Last Filed: 03/09/24 07:38> Care Plan Goals: comfort care and hospice care at home <Rafa Duque MD - Last Filed: 03/09/24 07:38> Health Concerns: advanced lung disease due to copd chronic atrial fibrilation adult failure to thrive <Rafa Duque MD - Last Filed: 03/09/24 07:38> Plan of Treatment: Home with hospice <Rafa Duque MD - Last Filed: 03/09/24 07:38> Assessment: See above <Rafa Duque MD - Last Filed: 03/09/24 07:38> Patient Instructions: Hospice Care (GEN) <Rafa Duque MD - Last Filed: 03/09/24 07:38>
[2024-03-09] MEDS: Fluticasone/Umeclidinium/Vilanterol 200/62.5/25 BLST.W.DEV 1 PUFF INHALE (07:42)
[2024-03-09 07:43] VITALS: PULSE 84; RESP 16; O2SAT 99
[2024-03-09] MEDS: Dabigatran Etexilate Mesylate 150 MG CAPSULE PO (08:36)
[2024-03-09] MEDS: Roflumilast 500 MCG TABLET PO (08:36)
[2024-03-09 08:37] VITALS: BP 131/60; PULSE 94
[2024-03-09] MEDS: Gabapentin 100 MG CAPSULE PO (08:37)
[2024-03-09] MEDS: dilTIAZem HCL 60 MG TABLET PO (08:37)
[2024-03-09] MEDS: Potassium Chloride ER 20 MEQ TAB.ER.PRT PO (08:37)
[2024-03-09] MEDS: Megestrol Acetate 20 MG TABLET 10 MG PO (08:43)
[2024-03-09] MEDS: Atorvastatin Calcium 10 MG TABLET PO (08:43)
[2024-03-09] MEDS: Fluconazole 100 MG TABLET PO (08:43)
[2024-03-09] MEDS: 0.9 % Sodium Chloride Flush 3 ML SYRINGE IVFLUSH (08:43)
[2024-03-09] MEDS: Loratadine 10 MG TABLET PO (08:43)
[2024-03-09] MEDS: Escitalopram Oxalate 10 MG TABLET PO (08:43)
[2024-03-09] MEDS: DEXTROSE 5% IV (08:44)
[2024-03-09] MEDS: ACYCLOVIR SODIUM IV (08:44)
[2024-03-09] MEDS: Nystatin Powder 15 GM BOTTLE 1 APPL TOPICAL (08:44)
--- NOTE | 2024-03-09 10:36 | MHC.CM.PN ---
PT SCHEDULED TO DC HOME TODAY AT 1200 HOURS VIA [facility] WILL MEET PT AT HOME AT 1300 HOURS FOR SOC CM SPOKE TO PTS DAUGHTER VIA T/C AT NUMBER ON FILE WHO CONFIRMED DME IS CURRENTLY BEING DELIVERED PT AND DAUGHTER AWARE PT WILL LEAVE HERE AT 1200 HOURS
--- NOTE | 2024-03-09 12:36 | PC.NURSE ---
EMS left without Narc Scripts. Narcs Faxed to [facility] in [place], Daughter/HCP called and notified. 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
== END 2024-03-09 12:24 | disposition hospice, home (50) | DRG 190 ==
LOC: HO.ED 10:14 → HO.EDOVER 12:37 → HO.IMC 19:12 → HO.S3 03-07 18:17
PROVIDERS: Family Medicine; Internal Medicine; Physician Assistant; Admitting Provider Student in an Organized Health Care Education/Training Program; Emergency Provider Emergency Medicine; PCP Family Medicine; Visit Provider Internal Medicine
DX: J43.9 Emphysema, unspecified (principal); J69.0 Pneumonitis due to inhalation of food and vomit; J96.21 Acute and chronic respiratory failure with hypoxia; J96.22 Acute and chronic respiratory failure with hypercapnia; E44.0 Moderate protein-calorie malnutrition; Z68.1 Body mass index [BMI] 19.9 or less, adult; B37.49 Other urogenital candidiasis; E87.4 Mixed disorder of acid-base balance; Z66 Do not resuscitate; D64.9 Anemia, unspecified; Z99.81 Dependence on supplemental oxygen; I48.0 Paroxysmal atrial fibrillation; I10 Essential (primary) hypertension; E78.5 Hyperlipidemia, unspecified; F39 Unspecified mood [affective] disorder; M54.50 Low back pain, unspecified; G89.29 Other chronic pain; Z20.822 Contact with and (suspected) exposure to COVID-19; Z87.891 Personal history of nicotine dependence; Z79.01 Long term (current) use of anticoagulants; Z79.899 Other long term (current) drug therapy
CPT/HCPCS: 0241U; 36415; 36600; 71045; 71250; 74230; 80048; 80053; 81001; 82140; 82803; 83605; 83735; 83880; 84443; 84484; 85025; 85027; 87040; 87086; 87088; 87493; 87633; 92526; 92610; 92611; 93005; 93306; 94640; 97110; 97161; 97530; 99285; J0133; J0696; J0736; J1160; J1450; J1650; J1836; J1920; J1940; J1956; J2020; J2919; J3475

== ENCOUNTER 2024-02-24 12:29 | Outpatient (BNV) | payer MEDICARE, SELFPAY | END 2024-02-29 09:57 | PROVIDERS: Admitting Provider Student in an Organized Health Care Education/Training Program; Emergency Provider Emergency Medicine; PCP Family Medicine; Visit Provider Radiology Diagnostic Radiology | DX: R13.10 Dysphagia, unspecified (principal) | CPT/HCPCS: 74230 ==

== ENCOUNTER 2024-02-24 12:29 | Outpatient (BNV) | payer MEDICARE, SELFPAY | END 2024-02-25 07:00 | PROVIDERS: Admitting Provider Student in an Organized Health Care Education/Training Program; Emergency Provider Emergency Medicine; PCP Family Medicine; Visit Provider Internal Medicine Cardiovascular Disease | DX: I35.8 Other nonrheumatic aortic valve disorders (principal); I34.81 Nonrheumatic mitral (valve) annulus calcification | CPT/HCPCS: 93306 ==

== ENCOUNTER → 2024-02-24 12:29 | Outpatient (BNV) | payer MEDICARE, SELFPAY | PROVIDERS: Admitting Provider Student in an Organized Health Care Education/Training Program; Emergency Provider Emergency Medicine; PCP Family Medicine; Visit Provider Internal Medicine | DX: I48.92 Unspecified atrial flutter (principal); J96.21 Acute and chronic respiratory failure with hypoxia | CPT/HCPCS: 99223 ==

== ENCOUNTER → 2024-02-24 12:29 | Outpatient (BNV) | payer MEDICARE, SELFPAY | PROVIDERS: Admitting Provider Student in an Organized Health Care Education/Training Program; Emergency Provider Emergency Medicine; PCP Family Medicine; Visit Provider Student in an Organized Health Care Education/Training Program | DX: I48.92 Unspecified atrial flutter (principal); J96.21 Acute and chronic respiratory failure with hypoxia | CPT/HCPCS: 99223; 99232; 99233; 99239; 99499 ==

== ENCOUNTER → 2024-02-24 12:29 | Outpatient (BNV) | payer MEDICARE, SELFPAY | PROVIDERS: Admitting Provider Student in an Organized Health Care Education/Training Program; Emergency Provider Emergency Medicine; PCP Family Medicine; Visit Provider Internal Medicine Pulmonary Disease | DX: J96.21 Acute and chronic respiratory failure with hypoxia (principal); R13.10 Dysphagia, unspecified; J44.1 Chronic obstructive pulmonary disease with (acute) exacerbation | CPT/HCPCS: 99222 ==